=== PATIENT | female | born 1940 | race Caucasian/White ===

== ENCOUNTER 2016-12-18 19:42 | Emergency (ER) | payer MEDICARE ==
[~2016-12-18] VITALS: Ht 162.6 cm; Wt 43.9 kg
[~2016-12-18 19:42] MED LIST: ALPR.25 PO; CLOP75 PO; METO25 PO; SYNT88TA PO; TAB-TAB PO; TRAM50 PO
[2016-12-18 20:13] VITALS: BP 113/68; PULSE 75; RESP 20; TEMP 97.6; O2SAT 95
[2016-12-18] MEDS ORDERED: MORPHINE SULFATE 4 MG/ML INJ IV PUSH ONE (20:45)
[2016-12-18] MEDS ORDERED: LEVO88TA2 PO (20:56)
[2016-12-18] MEDS ORDERED: METO25TA3 PO (20:56)
[2016-12-18] MEDS ORDERED: ALPR.25 PO (20:56)
[2016-12-18] MEDS ORDERED: MULT-135 PO (20:56)
[2016-12-18] MEDS ORDERED: PLAV75TA29 PO (20:56)
[2016-12-18 21:05] LABS: BLOOD, URINE SMALL (NEG); GLUCOSE,URINE NEG (NEG); KETONE, URINE NEG (NEG); NITRITE,URINE NEG (NEG)
[2016-12-18 21:18] LABS: BACTERIA, URINE FEW /hpf; COMMENT (UR) CULTURE INDICATED; CULTURE IF INDICATED CULTURE INDICATED; SQUAMOUS EPITHELIAL CELL URINE 0-5 /hpf (0-5); URINE COLOR YELLOW (YELLW/STRAW)
--- NOTE | 2016-12-18 21:23 | PD ---
HPI Chief Complaint: Fall Time Seen by Provider: 20:26 Travel History International Travel<30 days: No Contact w/Intl Traveler<30days: No Traveled to known affect area: No History of Present Illness HPI Patient is a 76-year-old female who comes in after a fall 3 days ago. She says she tripped over some newspapers by her door and fell against a railing on her left side. She was able to get up and walk afterwards, but says she has had increasing pain to her back and left side since then. She denies hitting her head or any loss of consciousness. She denies any shortness of breath. She complains of left-sided abdominal pain. She denies any nausea or vomiting. PFSH Past Medical History Hx Anticoagulant Therapy: Yes Arthritis: Yes Anxiety: Yes Cancer: No Cardiac Catheterization: Yes (STENTS X 3) Cardiovascular Problems: Yes (CAD,STENTS) High Cholesterol: Yes Chest Pain: Yes COPD: Yes Cerebrovascular Accident: Yes (TIA) Coronary Artery Disease: Yes Diabetes: Yes (Diet-controlled) Patient Takes Glucophage: No Diminished Hearing: No Diverticulitis: Yes Gastrointestinal Disorders: No GERD: Yes Genitourinary: No Hypertension: Yes Kidney Stones: Yes Musculoskeletal: Yes (CHRONIC JOINT DISEASE) Psychiatric: No Respiratory: Yes Immunizations Current: Yes Myocardial Infarction: Yes Thyroid Disease: Yes Tetanus Vaccination: Unknown Influenza Vaccination: No PNEUMOCCOCAL Vaccine (Year): 2009 Menopausal: Yes Past Surgical History Cardiac Surgery: Yes Cholecystectomy: Yes Coronary Stent: Yes Genitourinary Surgery: Yes (BLADDER SURGERY) Pacemaker: No Social History Alcohol Use: No Tobacco Use: Yes (1 PPD) Substance Use: No Allergies-Medications (Allergen,Severity, Reaction): Coded Allergies: Sulfa (Verified Allergy, Severe, FACIAL/MOUTH SWELLING, 07/06/16) Aspirin (Verified Allergy, Unknown, Anaphylaxis, 07/06/16) Reported Meds & Prescriptions Reported Meds & Active Scripts Active Reported Multi Vitamin (Multiple Vitamin) 1 Tab Tab 1 Tab PO DAILY Metoprolol Tartrate 25 Mg Tab 25 Mg PO BID Plavix (Clopidogrel Bisulfate) 75 Mg Tab 75 Mg PO DAILY Levothyroxine (Levothyroxine Sodium) 88 Mcg Tab 88 Mcg PO DAILY Xanax (Alprazolam) 0.25 Mg Tab 0.25 Mg PO EVERY 8 HOURS PRN Review of Systems Except as stated in HPI: all other systems reviewed are Neg General / Constitutional: No: Fever, Chills HENT: No: Headaches, Lightheadedness Respiratory: Positive: Cough, No: Shortness of Breath Gastrointestinal: Positive: Abdominal Pain, No: Nausea, Vomiting Musculoskeletal: Positive: Pain Skin: No Change in Pigmentation Neurologic: No: Dizziness Physical Exam Narrative GENERAL: Awake and alert, in no acute distress. SKIN: Warm and dry. HEAD: Atraumatic. Normocephalic. EYES: Pupils equal and round. No scleral icterus. ENT: Mucous membranes pink and moist. NECK: Trachea midline. No JVD. CARDIOVASCULAR: Regular rate and rhythm. No murmur appreciated. RESPIRATORY: No accessory muscle use. Clear to auscultation. Breath sounds equal bilaterally. GASTROINTESTINAL: Abdomen soft, nondistended. Tender to palpation of left side of the abdomen. No rebound or guarding. MUSCULOSKELETAL: No obvious deformities. No clubbing. No cyanosis. No edema. Tender to palpation of the lumbar spine. Tender to palpation of left lower ribs. NEUROLOGICAL: Awake and alert. No obvious cranial nerve deficits. Motor grossly within normal limits. Normal speech. PSYCHIATRIC: Appropriate mood and affect; insight and judgment normal. Data Data Last Documented VS Vital Signs Date Time Temp Pulse Resp B/P Pulse Ox O2 Delivery O2 Flow Rate FiO2 12/18/16 23:09 81 20 140/82 98 12/18/16 21:38 Room Air 12/18/16 20:13 97.6 Orders Complete Blood Count With Diff (12/18/16 20:37) Basic Metabolic Panel (Bmp) (12/18/16 20:37) Ct Abd/Pel W Iv Contrast(Rout) (12/18/16 ) Ct Lumb Spine W/O Contrast (12/18/16 ) Ribs, Uni (W/Exp Cxr-Min 3vw) (12/18/16 ) Morphine Inj (Morphine Inj) (12/18/16 20:45) Urinalysis - C+S If Indicated (12/18/16 20:48) Urine Culture (12/18/16 20:59) Ceftriaxone Inj (Rocephin Inj) (12/18/16 21:45) Iohexol 350 Inj (Omnipaque 350 Inj) (12/18/16 23:19) Labs Laboratory Tests Test 12/18/16 12/18/16 20:59 21:25 Urine Color YELLOW Urine Turbidity SLIGHT Urine pH 6.0 Urine Specific [place] 1.018 Urine Protein TRACE mg/dL Urine Glucose (UA) NEG mg/dL Urine Ketones NEG mg/dL Urine Occult Blood SMALL Urine Nitrite NEG Urine Bilirubin NEG Urine Leukocyte Esterase MOD Urine RBC 4-9 /hpf Urine WBC 25-49 /hpf Urine Squamous Epithelial 0-5 /hpf Cells Urine Bacteria FEW /hpf Microscopic Urinalysis Comment CULTURE INDICATED White Blood Count 4.6 TH/MM3 Red Blood Count 4.89 MIL/MM3 Hemoglobin 14.9 GM/DL Hematocrit 45.1 % Mean Corpuscular Volume 92.3 FL Mean Corpuscular Hemoglobin 30.5 PG Mean Corpuscular Hemoglobin 33.0 % Concent Red Cell Distribution Width 12.4 % Platelet Count 189 TH/MM3 Mean Platelet Volume 7.9 FL Neutrophils (%) (Auto) 64.1 % Lymphocytes (%) (Auto) 22.2 % Monocytes (%) (Auto) 11.0 % Eosinophils (%) (Auto) 1.2 % Basophils (%) (Auto) 1.5 % Neutrophils # (Auto) 2.9 TH/MM3 Lymphocytes # (Auto) 1.0 TH/MM3 Monocytes # (Auto) 0.5 TH/MM3 Eosinophils # (Auto) 0.1 TH/MM3 Basophils # (Auto) 0.1 TH/MM3 CBC Comment DIFF FINAL Differential Comment Sodium Level 142 MEQ/L Potassium Level 3.5 MEQ/L Chloride Level 105 MEQ/L Carbon Dioxide Level 31.2 MEQ/L Anion Gap 6 MEQ/L Blood Urea Nitrogen 10 MG/DL Creatinine 0.72 MG/DL Estimat Glomerular Filtration 79 ML/MIN Rate Random Glucose 87 MG/DL Calcium Level 8.9 MG/DL [facility] Medical Decision Making Medical Screen Exam Complete: Yes Emergency Medical Condition: Yes Medical Record Reviewed: Yes Differential Diagnosis Rib fracture versus lumbar spine fracture versus intra-abdominal injury Narrative Course Patient is a 76-year-old female comes in with pain to her left side after a fall. Exam shows tenderness to the lumbar spine as well as the left lower ribs. IV established, labs sent. Urine sent for urinalysis is positive for infection. Patient given Rocephin. Given 2 mg of morphine for pain. Rib x-ray shows a fracture of the ninth rib, no pneumothorax or lung issues. CT abdomen and pelvis shows no acute findings. There is a 2.6 cm AAA. Patient informed of this finding. Advised she needs to follow-up with her doctor and have routine follow-up. She understands the importance of this as well as her son. Patient is resting comfortably. We'll be discharged with prescription for pain medicine as well as an incentive spirometer. Given a prescription for Macrobid. Patient advised to return to the ED as needed for any worsening symptoms. Diagnosis Primary Impression: Rib fracture Qualified Code: S22.32XA - Closed fracture of one rib of left side, initial encounter Additional Impression: UTI (urinary tract infection) Qualified Code: N30.00 - Acute cystitis without hematuria Patient Instructions: General Instructions, Rib Fracture (ED), Urinary Tract Infection in Women (ED) Additional Instructions: Take pain medicine as needed. Take all of your antibiotics. Use the incentive spirometer every couple of hours to ensure you are taking deep breaths. Your CT scan showed you have a 2.6cm abdominal aortic aneurysm. You need to follow up with your doctor to have this monitored. Return to the ED as needed for any worsening symptoms. Scripts Nitrofurantoin Monohydrate Macrocrystals (Macrobid)100 Mg Nsl291 Mg PO BID 7 Days Ref 0 Prov:Veena Ratliff MD 12/18/16 Hydrocodone-Acetaminophen (Lortab)5-325 Mg Tab1 Tab PO Q6H PRN (PAIN) #15 TAB Ref 0 Prov:eVena Ratliff MD 12/18/16 Disposition: 01 DISCHARGE HOME Condition: Stable Veena Ratliff MD Dec 18, 2016 21:22
[2016-12-18 21:30] LABS: AUTOMATED NEUTROPHIL # 2.9 TH/MM3 (1.8-7.7); BASOPHIL # 0.1 TH/MM3 (0-0.2); BASOPHIL % 1.5 % (0.0-2.0); EOSINOPHIL # 0.1 TH/MM3 (0-0.4); EOSINOPHIL % 1.2 % (0.0-4.0); HEMATOCRIT 45.1 % (35.0-46.0); HEMO FLAGS DIFF FINAL; LYMPH % 22.2 % (9.0-44.0); MEAN CELL VOLUME 92.3 FL (80.0-100.0); MEAN CORPUSCULAR HEMOGLOBIN 30.5 PG (27.0-34.0); NEUT % 64.1 % (16.0-70.0); PLATELET COUNT 189 TH/MM3 (150-450); RED BLOOD COUNT 4.89 MIL/MM3 (4.00-5.30); RED CELL DISTRIBUTION WIDTH 12.4 % (11.6-17.2); WHITE BLOOD COUNT 4.6 TH/MM3 (4.0-11.0)
--- NOTE | 2016-12-18 21:31 | RADHPO ---
EXAM DATE/TIME: 12/18/2016 20:57 [facility] COMPARISON: No previous studies available for comparison. INDICATIONS : Left side rib pain post fall three days ago. MEDICAL HISTORY : Chronic obstructive pulmonary disease. Myocardial infarction. Hypertension. SURGICAL HISTORY : None. ENCOUNTER: Initial ACUITY: 3 days PAIN SCORE: 6/10 LOCATION: Left ribs. FINDINGS: There is a left ninth rib fracture laterally. No other definite fractures are identified. No pneumoth orax or pleural effusion. A myotendinous disease. Mild hyperinflation. CONCLUSION: 1. Left ninth rib fracture laterally. Jitendra Falcon MD on December 18, 2016 at 21:28 Board Certified Radiologist. This report was verified electronically.
[2016-12-18 21:35] LABS: POTASSIUM 3.5 MEQ/L (3.5-5.1)
[2016-12-18 21:38] LABS: BICARBONATE 31.2 MEQ/L (21.0-32.0)
[2016-12-18 21:45] VITALS: BP 143/71; PULSE 75; RESP 20; O2SAT 98
[2016-12-18] MEDS ORDERED: cefTRIAXone INJ 1,000 MG in SODIUM CHLORIDE 0.9% INJ 100 ML IV ONE (21:45)
[2016-12-18 23:09] VITALS: BP 140/82; PULSE 81; RESP 20; O2SAT 98
[2016-12-18] MEDS ORDERED: IOHEXOL 350 MG/ML 10 ML VIAL (for RAD DIAG) IV ONE (23:19)
--- NOTE | 2016-12-18 23:39 | RADHPO ---
EXAM DATE/TIME: 12/18/2016 22:47 [facility] COMPARISON: CT ABDOMEN & PELVIS W CONTRAST, October 17, 2015, 15:59. INDICATIONS : Mechanical fall two days ago. Left sided abdominal pain. IV CONTRAST: 80 cc Omnipaque 350 (iohexol) IV ORAL CONTRAST: No oral contrast ingested. RADIATION DOSE: 4.71 CTDIvol (mGy) MEDICAL HISTORY : Myocardial infarction. Gastroesophageal reflux disease. Renal calculi. SURGICAL HISTORY : Coronary artery stent. ENCOUNTER: Initial ACUITY: 2 days PAIN SCALE: 7/10 LOCATION: Left Abdomen. TECHNIQUE: Volumetric scanning of the abdomen and pelvis was performed. Using automated exposure control and ad justment of the mA and/or kV according to patient size, radiation dose was kept as low as reasonably achievable to obtain optimal diagnostic quality images. FINDINGS: LOWER LUNGS: Emphysematous changes within the lung bases. No acute infiltrate or effusion. LIVER: There is mild prominence to the intrahepatic biliary tree. This is a long-term stable. No obstructing mass or stone. The common bile duct reaches a maximum diameter of 9 mm. The gallbladder is surgicall y absent. Portal vein is patent. Liver is without mass. SPLEEN: Normal size without lesion. Multiple granulomatous calcifications. PANCREAS: Within normal limits. KIDNEYS: Normal in size and shape. There is no mass, stone or hydronephrosis. Multiple simple cysts are seen involving both kidneys. The largest measures 3.4 cm on the left. ADRENAL GLANDS: Within normal limits. VASCULAR: Diffuse calcified atherosclerotic plaque involving the abdominal aorta and its major branches. Mild f ocal fusiform aneurysmal change of the infrarenal aorta reaching a maximum diameter of 2.6 cm. BOWEL/MESENTERY: Multiple colonic diverticuli. No acute inflammation observed. No dilated loops of bowel. Stomach is u nremarkable. No free air or free fluid. ABDOMINAL WALL: Within normal limits. RETROPERITONEUM: There is no lymphadenopathy. BLADDER: No wall thickening or mass. REPRODUCTIVE: Within normal limits. Prior hysterectomy. Pessary noted. INGUINAL: There is no lymphadenopathy or hernia. MUSCULOSKELETAL: Within normal limits for patient age. CONCLUSION: 1. No acute abnormality. 2. Colonic diverticulosis without acute inflammation. 3. Mild prominence to the intrahepatic biliary system felt to be a capacitance affect from prior chol ecystectomy. It is stable. 4. 2.6 cm AAA Jose Mariscal Jr., MD on December 18, 2016 at 23:32 Board Certified Radiologist. This report was verified electronically.
--- NOTE | 2016-12-18 23:43 | RADHPO ---
EXAM DATE/TIME: 12/18/2016 22:47 [facility] COMPARISON: No previous studies available for comparison. INDICATIONS : Mechanical fall two days ago. Left lower back pain. RADIATION DOSE: ; Reconstructed from previous dataset MEDICAL HISTORY : Myocardial infarction. Renal calculi. Hypertension. SURGICAL HISTORY : Coronary artery stent. ENCOUNTER: Initial ACUITY: 2 days PAIN SCALE: 9/10 LOCATION: Left lower back. TECHNIQUE: Volumetric scanning of the lumbar spine was performed. Multiplanar reconstructions in the sagittal, coronal and oblique axial planes were performed. Using automated exposure control and adjustment of the mA and/or kV according to patient size, radiation dose was kept as low as reasonably achievable t o obtain optimal diagnostic quality images. FINDINGS: VERTEBRAE: Normal vertebral body height. ALIGNMENT: No evidence of subluxation. T12-L1: The thecal sac has a normal diameter. No evidence of disc bulge or protrusion. The neural foramina are patent bilaterally. L1-L2: The thecal sac has a normal diameter. No evidence of disc bulge or protrusion. The neural foramina are patent bilaterally. L2-L3: A mild broad-based disc bulge observed. Central canal remains patent. Neural foramina are patent. L3-L4: A moderate broad-based disc bulge observed. Central canal and lateral recesses are patent. There is n arrowing of the left neural foramen with potential impingement of the left L3 nerve root. Right remai ns patent. Mild ligamentum flavum hypertrophy of the facets. L4-L5: There is vacuum disc phenomena and broad-based disc bulge with narrowing of the central canal and lat eral recesses as well as the neural foramen. Potential impingement of both L4 nerve roots. Facet join ts are unremarkable. L5-S1: The thecal sac has a normal diameter. No evidence of disc bulge or protrusion. The neural foramina are patent bilaterally. Mild bony hypertrophy of the facets. CONCLUSION: 1. No fracture. 2. Multilevel degenerative changes most pronounced at L3-L4 at L4-L5 including central canal stenosis and neural impingement as detailed above. Jose Mariscal Jr., MD on December 18, 2016 at 23:38 Board Certified Radiologist. This report was verified electronically.
[2016-12-18] MEDS ORDERED: HYDR-3533 PO (23:59)
[2016-12-18] MEDS ORDERED: MACR100C2 PO (23:59)
[2016-12-19] MEDS ORDERED: traMADol HCL 50 MG TAB PO ONE
[2016-12-19 00:11] VITALS: BP 168/80
== END 2016-12-19 00:19 | disposition home or self-care (01) ==
LOC: PHED 19:42
DX: S22.32XA Fracture of one rib, left side, initial encounter for closed fracture (principal); N30.00 Acute cystitis without hematuria; B96.89 Other specified bacterial agents as the cause of diseases classified elsewhere; W18.09XA Striking against other object with subsequent fall, initial encounter
CPT/HCPCS: 71101; 72131; 74177; 80048; 81001; 85025; 87086; 94150; 96365; 96375; 99284; J0696; J2270; Q9967

== ENCOUNTER 2017-04-07 21:51 | Emergency (ER) | payer MEDICARE ==
[~2017-04-07] VITALS: Ht 165.1 cm; Wt 45.0 kg
[~2017-04-07 21:51] MED LIST changes: -CLOP75 PO; +HYDR-3533 PO; +LEVO88TA2 PO; +MACR100C2 PO; -METO25 PO; +METO25TA3 PO; +MULT-135 PO; +PLAV75TA29 PO; -SYNT88TA PO; -TAB-TAB PO; -TRAM50 PO
[2017-04-07 21:56] VITALS: BP 117/60; PULSE 80; RESP 16; TEMP 98; O2SAT 95
[2017-04-07 22:04] VITALS: BP 115/61; PULSE 77; RESP 16; TEMP 98; O2SAT 96
[2017-04-07] MEDS ORDERED: SODIUM CHLORID 0.9% 500 ML INJ 500 ML IV ONE (22:15)
[2017-04-07] MEDS ORDERED: SODIUM CHLORIDE 0.9% FLUSH 10 ML FLUSH IVF PRN (22:15)
--- NOTE | 2017-04-07 22:38 | RADRPT ---
EXAM DATE/TIME: 04/07/2017 22:12 [facility] COMPARISON: CHEST SINGLE AP, November 06, 2015, 15:25. INDICATIONS : Chest pain MEDICAL HISTORY : Chronic obstructive pulmonary disease. Myocardial infarction. Hypertension SURGICAL HISTORY : None. ENCOUNTER: Initial ACUITY: 1 day PAIN SCORE: Non-responsive. LOCATION: Bilateral chest FINDINGS: The lungs are clear without infiltrate, nodule, or mass. There is no appreciable pleural effusion fo r technique. Heart and mediastinum are unremarkable. There are degenerative changes within the thora cic spine and the bony structures appear slightly osteopenic. There are atherosclerotic calcification s of the aorta due to chronic atherosclerotic disease. CONCLUSION: No acute cardiopulmonary disease. Mary Major MD on April 07, 2017 at 22:36 Board Certified Radiologist. This report was verified electronically.
[2017-04-07 22:45] LABS: BASOPHIL % 0.7 % (0.0-2.0); EOSINOPHIL % 0.3 % (0.0-4.0); HEMATOCRIT 39.7 % (35.0-46.0); HEMO FLAGS DIFF FINAL; LYMPH % 20.2 % (9.0-44.0); LYMPHOCYTE # 1.1 TH/MM3 (1.0-4.8); MEAN CELL VOLUME 92.5 FL (80.0-100.0); MEAN CORPUSCULAR HEMOGLOBIN 30.6 PG (27.0-34.0); MEAN CORPUSCULAR HGB CONC 33.1 % (32.0-36.0); MONO % 8.3 % (0.0-8.0); NEUT % 70.5 % (16.0-70.0); PLATELET COUNT 214 TH/MM3 (150-450); RED BLOOD COUNT 4.29 MIL/MM3 (4.00-5.30); RED CELL DISTRIBUTION WIDTH 14.4 % (11.6-17.2); WHITE BLOOD COUNT 5.7 TH/MM3 (4.0-11.0)
--- NOTE | 2017-04-07 22:58 | PD ---
HPI Chief Complaint: Cardiac Complaint Time Seen by Provider: 21:59 Travel History International Travel<30 days: No Contact w/Intl Traveler<30days: No Traveled to known affect area: No History of Present Illness HPI This 76 year-old woman presents emergency department via EMS complaining of pain in her back and nausea and weakness. She states that she hasn't been feeling well for the past couple days. She's had UTI symptoms for the past month. She did anabiotic visits never really went away. Stable walking to the convenience store this evening she got increased weakness and aching in the right side of her back. EMS described that she looked pale, and unwell and he first arrived. She feels better now. No nausea vomiting. No fevers or chills. She has no history of cardiac disease that she states, records show that she has a history of CAD with stents in the past. She has reported history of direct for diabetes. She is extensive tobacco use history. History Past Medical History Narrative Medical CAD Tobacco use Diabetes CVA PNEUMOCCOCAL Vaccine (Year): 2009 Menopausal: Yes Social History Alcohol Use: No Tobacco Use: Yes (2 PPD) Allergies-Medications (Allergen,Severity, Reaction): Coded Allergies: Sulfa (Verified Allergy, Severe, FACIAL/MOUTH SWELLING, 04/07/17) Aspirin (Verified Allergy, Unknown, Anaphylaxis, 04/07/17) Reported Meds & Prescriptions Reported Meds & Active Scripts Active Lortab (Hydrocodone-Acetaminophen) 5-325 Mg Tab 1 Tab PO Q6H PRN Reported Metoprolol Tartrate 25 Mg Tab 25 Mg PO BID Plavix (Clopidogrel Bisulfate) 75 Mg Tab 75 Mg PO DAILY Levothyroxine (Levothyroxine Sodium) 88 Mcg Tab 88 Mcg PO DAILY Xanax (Alprazolam) 0.25 Mg Tab 0.25 Mg PO EVERY 8 HOURS PRN Review of Systems Except as stated in HPI: all other systems reviewed are Neg Physical Exam Narrative GENERAL: Well-appearing 76 year-old woman, no acute distress. SKIN: Focused skin assessment warm/dry. HEAD: Atraumatic. Normocephalic. CARDIOVASCULAR: Regular rate and rhythm. No murmur appreciated. RESPIRATORY: No accessory muscle use. Clear to auscultation. Breath sounds equal bilaterally. GASTROINTESTINAL: Abdomen soft, non-tender, nondistended. Hepatic and splenic margins not palpable. MUSCULOSKELETAL: No obvious deformities. No edema. NEUROLOGICAL: Awake and alert. No obvious cranial nerve deficits. Motor grossly within normal limits. Normal speech. Data Data Last Documented VS Vital Signs Date Time Temp Pulse Resp B/P Pulse Ox O2 Delivery O2 Flow Rate FiO2 04/07/17 22:04 98.0 77 16 115/61 96 Room Air Orders Electrocardiogram (04/07/17 22:03) Complete Blood Count With Diff (04/07/17 22:03) Comprehensive Metabolic Panel (04/07/17 22:03) Magnesium (Mg) (04/07/17 22:03) Prothrombin Time / Inr (Pt) (04/07/17 22:03) Act Partial Throm Time (Ptt) (04/07/17 22:03) Troponin I (04/07/17 22:) Lipase (04/07/17 22:03) Chest, Single Ap (04/07/17 22:03) Ecg Monitoring (04/07/17 22:03) Bilateral Bp Monitoring (04/07/17 22:03) Iv Access Insert/Monitor (04/07/17 22:03) Oximetry (04/07/17 22:03) Oxygen Administration (04/07/17 22:03) Sodium Chloride 0.9% Flush (Ns Flush) (04/07/17 22:15) Sodium Chlorid 0.9% 500 Ml Inj (Ns 500 M (04/07/17 22:15) Urinalysis - C+S If Indicated (04/07/17 22:03) Urine Culture (04/07/17 23:32) Labs Laboratory Tests Test 04/07/17 04/07/17 22:10 23:32 White Blood Count 5.7 TH/MM3 Red Blood Count 4.29 MIL/MM3 Hemoglobin 13.1 GM/DL Hematocrit 39.7 % Mean Corpuscular Volume 92.5 FL Mean Corpuscular Hemoglobin 30.6 PG Mean Corpuscular Hemoglobin 33.1 % Concent Red Cell Distribution Width 14.4 % Platelet Count 214 TH/MM3 Mean Platelet Volume 8.4 FL Neutrophils (%) (Auto) 70.5 % Lymphocytes (%) (Auto) 20.2 % Monocytes (%) (Auto) 8.3 % Eosinophils (%) (Auto) 0.3 % Basophils (%) (Auto) 0.7 % Neutrophils # (Auto) 4.0 TH/MM3 Lymphocytes # (Auto) 1.1 TH/MM3 Monocytes # (Auto) 0.5 TH/MM3 Eosinophils # (Auto) 0.0 TH/MM3 Basophils # (Auto) 0.0 TH/MM3 CBC Comment DIFF FINAL Differential Comment Prothrombin Time 12.4 SEC Prothromb Time International 1.1 RATIO Ratio Activated Partial 23.4 SEC Thromboplast Time Sodium Level 143 MEQ/L Potassium Level 3.8 MEQ/L Chloride Level 109 MEQ/L Carbon Dioxide Level 26.3 MEQ/L Anion Gap 8 MEQ/L Blood Urea Nitrogen 19 MG/DL Creatinine 0.95 MG/DL Estimat Glomerular Filtration 57 ML/MIN Rate Random Glucose 149 MG/DL Calcium Level 8.1 MG/DL Magnesium Level 2.0 MG/DL Total Bilirubin 0.4 MG/DL Aspartate Amino Transf 24 U/L (AST/SGOT) Alanine Aminotransferase 20 U/L (ALT/SGPT) Alkaline Phosphatase 46 U/L Troponin I LESS THAN 0.02 NG/ML Total Protein 6.3 GM/DL Albumin 3.0 GM/DL Lipase 67 U/L Urine Color YELLOW Urine Turbidity HAZY Urine pH 5.5 Urine Specific [place] 1.029 Urine Protein 30 mg/dL Urine Glucose (UA) NEG mg/dL Urine Ketones NEG mg/dL Urine Occult Blood SMALL Urine Nitrite NEG Urine Bilirubin NEG Urine Urobilinogen 2.0 MG/DL Urine Leukocyte Esterase LARGE Urine RBC 23 /hpf Urine WBC /hpf Urine Squamous Epithelial 1 /hpf Cells Urine Calcium Oxalate Crystals OCC /hpf Urine Bacteria RARE /hpf Urine Hyaline Casts 13 /lpf Urine Mucus FEW /lpf Microscopic Urinalysis Comment CULTURE INDICATED MDM Medical Decision Making Medical Screen Exam Complete: Yes Emergency Medical Condition: Yes Interpretation(s) My review of EKG: Normal sinus rhythm at a rate of 81, left bundle branch block , no definite evidence of acute ischemia. LABS: CBC is unremarkable. CMP is unremarkable. Troponin is negative. Proteins low. Lipase is normal UA with innumerable white blood cells. Differential Diagnosis Pyelonephritis, UTI, ACS, infection, other Narrative Course Medical decision making Is a 76 year-old woman with back pain in lightheadedness and weakness. She was called as a cardiac work as her EKG shows left bundle-branch block. EKG does not look significantly different previous. She may have pyelonephritis. She had UTI symptoms for a while and is having some back pain. We'll check labs chest x-ray EKG. He has no chest pain, no trouble breathing, no other cardiac symptoms. Diagnosis Primary Impression: Pyelonephritis Additional Instructions: Take antibiotics as prescribed. Follow-up with her primary doctor in 1-2 days. Return to the emergency department for any new or worsening symptoms. Med/Other Pt SpecificInfo: Prescription(s) given, No Change to Meds Scripts Cephalexin (Keflex)500 Mg Qfl369 Mg PO Q8H #30 CAP Ref 0 Prov:Derek Gibson MD 04/08/17 Disposition: 01 DISCHARGE HOME Condition: Stable Derek Gibson MD Apr 07, 2017 22:58
[2017-04-07 22:59] LABS: ALT (GPT) 20 U/L (10-53); ANION GAP 8 MEQ/L (5-15); AST (GOT) 24 U/L (15-37); BICARBONATE 26.3 MEQ/L (21.0-32.0); BLOOD UREA NITROGEN 19 MG/DL (7-18); CHLORIDE 109 MEQ/L (98-107); GLOMERULAR FILTRATION RATE 57 ML/MIN (>89); POTASSIUM 3.8 MEQ/L (3.5-5.1); SODIUM (NA) 143 MEQ/L (136-145)
[2017-04-07 23:03] LABS: ALKALINE PHOSPHATASE 46 U/L (45-117); TOTAL BILIRUBIN ADULT 0.4 MG/DL (0.2-1.0)
[2017-04-07 23:07] LABS: APTT (PATIENT) 23.4 SEC (24.3-30.1); INTERNATIONAL NORMALIZED RATIO 1.1 RATIO; PROTHROMBIN TIME - PATIENT 12.4 SEC (9.8-11.6)
[2017-04-07 23:50] VITALS: BP 120/66; PULSE 80; RESP 14; O2SAT 99
[2017-04-07 23:55] LABS: BACTERIA, URINE RARE /hpf; BLOOD, URINE SMALL (NEG); CALCIUM OXALATE CRYSTALS,URINE OCC /hpf; COMMENT (UR) CULTURE INDICATED; CULTURE IF INDICATED CULTURE INDICATED; GLUCOSE,URINE NEG (NEG); HYALINE CAST, URINE 13 /lpf (RARE); KETONE, URINE NEG (NEG); MUCUS URINE FEW /lpf (OCC); NITRITE,URINE NEG (NEG); PH, URINE 5.5 (5.0-8.5); SQUAMOUS EPITHELIAL CELL URINE 1 /hpf (0-5); URINE COLOR YELLOW (YELLW/STRAW)
[2017-04-08] MEDS ORDERED: cefTRIAXone INJ 1,000 MG in SODIUM CHLORIDE 0.9% INJ 100 ML IV ONE (00:15)
[2017-04-08] MEDS ORDERED: CEPH-460 PO (00:23)
[2017-04-08 00:59] VITALS: BP 118/64; PULSE 78; RESP 14; O2SAT 98
[2017-04-08 01:54] VITALS: BP 120/66; PULSE 74; RESP 14; O2SAT 98
--- NOTE | 2017-04-09 10:58 | EKG ---
Date Performed: 04/07/2017 Time Performed: 21:54:22 PTAGE: 76 years EKG: Sinus rhythm MARKED LEFT AXIS DEVIATION LEFT BUNDLE BRANCH BLOCK ABNORMAL ECG PREVIOUS TRACING : 07/06/2016 19.30 DOCTOR: Derek Servin Interpretating Date/Time 04/09/2017 10:54:28
== END 2017-04-08 02:46 | disposition home or self-care (01) ==
LOC: NEPE 21:51
DX: N12 Tubulo-interstitial nephritis, not specified as acute or chronic (principal); R42 Dizziness and giddiness; R53.1 Weakness; I44.7 Left bundle-branch block, unspecified; I25.10 Atherosclerotic heart disease of native coronary artery without angina pectoris; R94.31 Abnormal electrocardiogram [ECG] [EKG]; E11.9 Type 2 diabetes mellitus without complications; J44.9 Chronic obstructive pulmonary disease, unspecified; I10 Essential (primary) hypertension
CPT/HCPCS: 71010; 80053; 81001; 83690; 83735; 84484; 85025; 85610; 85730; 87077; 87086; 87186; 93005; 96374; 99285; J0696; J7040

== ENCOUNTER 2017-07-13 12:09 | Emergency (ER) | payer MEDICARE ==
[~2017-07-13 12:09] MED LIST changes: +CEPH-460 PO; -MACR100C2 PO; -MULT-135 PO
[2017-07-13 12:33] VITALS: BP 135/55; PULSE 80; RESP 18; TEMP 98.7; O2SAT 99
--- NOTE | 2017-07-13 12:34 | PD ---
HPI Chief Complaint: Respiratory Symptoms Time Seen by Provider: 12:23 Travel History International Travel<30 days: No Contact w/Intl Traveler<30days: No History of Present Illness HPI This is a 76-year-old female who presents to the emergency department with shortness of breath that she says this been going on for 2 years but was worse today. Her symptoms are constant, moderate severity, worse when she exerts herself. She denies any associated chest pain. She denies any fevers or chills. She has had a productive cough with yellow sputum. She says this morning she called her doctor and her doctor told her to come to the emergency department. PFSH Past Medical History Hx Anticoagulant Therapy: Yes Arthritis: Yes Anxiety: Yes Cancer: No Cardiac Catheterization: Yes (STENTS X 3) Cardiovascular Problems: Yes (CAD,STENTS) High Cholesterol: Yes Chest Pain: Yes COPD: Yes Cerebrovascular Accident: Yes Coronary Artery Disease: Yes Diabetes: Yes (Diet-controlled) Diminished Hearing: No Diverticulitis: Yes Gastrointestinal Disorders: No GERD: Yes Genitourinary: No Hypertension: Yes Kidney Stones: Yes Musculoskeletal: Yes (CHRONIC JOINT DISEASE) Psychiatric: No Respiratory: Yes Immunizations Current: Yes Myocardial Infarction: Yes Thyroid Disease: Yes PNEUMOCCOCAL Vaccine (Year): 2009 Menopausal: Yes Past Surgical History Cardiac Surgery: Yes Cholecystectomy: Yes Coronary Stent: Yes Genitourinary Surgery: Yes (BLADDER SURGERY) Pacemaker: No Social History Alcohol Use: No Tobacco Use: Yes (2 PPD) Substance Use: No Allergies-Medications (Allergen,Severity, Reaction): Coded Allergies: Sulfa (Sulfonamide Antibiotics) (Unverified Allergy, Severe, FACIAL/MOUTH SWELLING, 05/10/17) aspirin (Unverified Allergy, Unknown, Anaphylaxis, 05/10/17) Reported Meds & Prescriptions Reported Meds & Active Scripts Active Reported Metoprolol Tartrate 25 Mg Tab 25 Mg PO BID Plavix (Clopidogrel Bisulfate) 75 Mg Tab 75 Mg PO DAILY Levothyroxine (Levothyroxine Sodium) 88 Mcg Tab 88 Mcg PO DAILY Review of Systems Except as stated in HPI: all other systems reviewed are Neg Physical Exam Narrative GENERAL: Frail elderly female in no acute distress. SKIN: Focused skin assessment warm and dry. HEAD: Atraumatic. Normocephalic. EYES: Pupils equal and round. No injection or drainage. ENT: Moist mucous membranes NECK: Trachea midline. CARDIOVASCULAR: Regular rate and rhythm. No murmur appreciated. Trace edema in the bilateral lower extremities. RESPIRATORY: Clear to auscultation. Breath sounds equal bilaterally. GASTROINTESTINAL: Abdomen soft, non-tender, nondistended. MUSCULOSKELETAL: No obvious deformities. NEUROLOGICAL: Awake and alert. No obvious cranial nerve deficits. Moving all extremities. PSYCHIATRIC: Appropriate mood and affect; insight and judgment normal. Data Data Last Documented VS Vital Signs Date Time Temp Pulse Resp B/P (MAP) Pulse Ox O2 Delivery O2 Flow Rate FiO2 07/13/17 13:07 74 18 135/61 (85) 99 Room Air 07/13/17 12:33 98.7 Orders Orders Complete Blood Count With Diff (07/13/17 12:31) Comprehensive Metabolic Panel (07/13/17 12:31) B-Type Natriuretic Peptide (07/13/17 12:31) D-Dimer (07/13/17 12:31) Troponin I (07/13/17 12:31) Iv Access Insert/Monitor (07/13/17 12:31) Electrocardiogram (07/13/17 12:31) Ecg Monitoring (07/13/17 12:31) Oximetry (07/13/17 12:31) Oxygen Administration (07/13/17 12:31) Chest, Single Ap (07/13/17 12:31) Sodium Chloride 0.9% Flush (Ns Flush) (07/13/17 12:45) Labs Laboratory Tests Test 07/13/17 12:50 White Blood Count 5.9 TH/MM3 Red Blood Count 4.31 MIL/MM3 Hemoglobin 13.1 GM/DL Hematocrit 39.7 % Mean Corpuscular Volume 92.1 FL Mean Corpuscular Hemoglobin 30.4 PG Mean Corpuscular Hemoglobin Concent 33.0 % Red Cell Distribution Width 14.4 % Platelet Count 246 TH/MM3 Mean Platelet Volume 7.5 FL Neutrophils (%) (Auto) 68.6 % Lymphocytes (%) (Auto) 17.8 % Monocytes (%) (Auto) 8.6 % Eosinophils (%) (Auto) 0.9 % Basophils (%) (Auto) 4.1 % Neutrophils # (Auto) 4.0 TH/MM3 Lymphocytes # (Auto) 1.1 TH/MM3 Monocytes # (Auto) 0.5 TH/MM3 Eosinophils # (Auto) 0.1 TH/MM3 Basophils # (Auto) 0.2 TH/MM3 CBC Comment DIFF FINAL Differential Comment D-Dimer Quantitative (PE/DVT) 0.31 MG/L FEU Blood Urea Nitrogen 17 MG/DL Creatinine 0.65 MG/DL Random Glucose 81 MG/DL Total Protein 6.5 GM/DL Albumin 3.1 GM/DL Calcium Level 8.4 MG/DL Alkaline Phosphatase 63 U/L Aspartate Amino Transf (AST/SGOT) 23 U/L Alanine Aminotransferase (ALT/SGPT) 22 U/L Total Bilirubin 0.2 MG/DL Sodium Level 140 MEQ/L Potassium Level 3.6 MEQ/L Chloride Level 105 MEQ/L Carbon Dioxide Level 31.5 MEQ/L Anion Gap 4 MEQ/L Estimat Glomerular Filtration Rate 89 ML/MIN Troponin I LESS THAN 0.02 NG/ML B-Type Natriuretic Peptide 70 PG/ML MDM Medical Decision Making Medical Screen Exam Complete: Yes Emergency Medical Condition: Yes Interpretation(s) Afebrile, no tachycardia, normotensive EKG: Normal sinus rhythm, Q waves in the anterior leads, no ST changes No leukocytosis Electrolytes are reassuring Troponin is normal BNP is normal D-dimer is 0.31 Last 24 hours Impressions Chest X-Ray 07/13/17 1231 Signed Impressions: Service Date/Time: Thursday, July 13, 2017 12:52 - CONCLUSION: Stable chest x-ray. No acute finding is identified. Anthony Palmer MD Differential Diagnosis Congestive heart earlier, COPD exacerbation, pneumonia, myocardial infarction, pulmonary embolism Narrative Course This is a 76-year-old female who presents to the emergency department with shortness of breath. She is not a great historian but it sounds like this is been going on intermittently for 2 years. The only reason she came in today is because she was told to do so by her doctor's office via phone call. She is very well-appearing and has normal vital signs. Labs are all reassuring. I don 't think she requires any additional diagnostics and I think she is safe to follow-up with her outpatient primary care physician. Diagnosis Primary Impression: Shortness of breath Patient Instructions: General Instructions Additional Instructions: If you develop severe chest pain, shortness of breath, sweating, lightheadedness , dizziness or difficulty breathing return to the emergency department immediately. Followup with your primary care physician in 2-3 days if your symptoms are not resolved. Med/Other Pt SpecificInfo: No Change to Meds Disposition: 01 DISCHARGE HOME Condition: Stable Janna Gomez MD Jul 13, 2017 12:33
[2017-07-13] MEDS ORDERED: SODIUM CHLORIDE 0.9% FLUSH 10 ML FLUSH IVF PRN (12:45)
[2017-07-13 13:02] LABS: BASOPHIL # 0.2 TH/MM3 (0-0.2); BASOPHIL % 4.1 % (0.0-2.0); EOSINOPHIL # 0.1 TH/MM3 (0-0.4); EOSINOPHIL % 0.9 % (0.0-4.0); HEMATOCRIT 39.7 % (35.0-46.0); HEMO FLAGS DIFF FINAL; LYMPH % 17.8 % (9.0-44.0); LYMPHOCYTE # 1.1 TH/MM3 (1.0-4.8); MEAN CELL VOLUME 92.1 FL (80.0-100.0); MEAN CORPUSCULAR HEMOGLOBIN 30.4 PG (27.0-34.0); MONO % 8.6 % (0.0-8.0); NEUT % 68.6 % (16.0-70.0); PLATELET COUNT 246 TH/MM3 (150-450); RED BLOOD COUNT 4.31 MIL/MM3 (4.00-5.30); RED CELL DISTRIBUTION WIDTH 14.4 % (11.6-17.2); WHITE BLOOD COUNT 5.9 TH/MM3 (4.0-11.0)
[2017-07-13 13:07] VITALS: BP 135/61; PULSE 74; RESP 18; O2SAT 99
[2017-07-13 13:10] LABS: CHLORIDE 105 MEQ/L (98-107); POTASSIUM 3.6 MEQ/L (3.5-5.1); SODIUM (NA) 140 MEQ/L (136-145)
[2017-07-13 13:14] LABS: ANION GAP 4 MEQ/L (5-15); BICARBONATE 31.5 MEQ/L (21.0-32.0); BLOOD UREA NITROGEN 17 MG/DL (7-18)
[2017-07-13 13:17] LABS: ALT (GPT) 22 U/L (10-53); AST (GOT) 23 U/L (15-37); GLOMERULAR FILTRATION RATE 89 ML/MIN (>89)
[2017-07-13 13:18] LABS: TOTAL BILIRUBIN ADULT 0.2 MG/DL (0.2-1.0)
[2017-07-13 13:20] LABS: ALKALINE PHOSPHATASE 63 U/L (45-117)
--- NOTE | 2017-07-13 13:37 | EKG ---
Date Performed: 07/13/2017 Time Performed: 12:56:52 PTAGE: 76 years EKG: Sinus rhythm MARKED LEFT AXIS DEVIATION ANTEROSEPTAL MYOCARDIAL INFARCTION ABNORMAL ECG PREVIOUS TRACING : 04/07/2017 21.54 DOCTOR: Derek Servin Interpretating Date/Time 07/13/2017 13:37:11
--- NOTE | 2017-07-13 14:05 | RADRPT ---
EXAM DATE/TIME: 07/13/2017 12:52 [facility] COMPARISON: CHEST SINGLE AP, April 07, 2017, 22:12. INDICATIONS : Short of breath MEDICAL HISTORY : Myocardial infarction. Gastroesophageal reflux disease. Renal calculi. SURGICAL HISTORY : Myocardial infarction. Gastroesophageal reflux disease. Renal calculi. ENCOUNTER: Initial ACUITY: 1 day PAIN SCORE: 0/10 LOCATION: Bilateral chest FINDINGS: Portable AP view of the chest demonstrates a normal-sized cardiac silhouette with calcification of ao rta. Lungs remain hyperinflated with interstitial prominence bilaterally. No effusion, consolidation, or pneumothorax is identified. Bones and soft tissues demonstrate no acute finding. CONCLUSION: Stable chest x-ray. No acute finding is identified. Anthony Palmer MD on July 13, 2017 at 13:12 Board Certified Radiologist. This report was verified electronically.
== END 2017-07-13 15:44 | disposition home or self-care (01) ==
LOC: PHED 12:09
DX: R06.02 Shortness of breath (principal); F17.200 Nicotine dependence, unspecified, uncomplicated
CPT/HCPCS: 71010; 80053; 83880; 84484; 85025; 85379; 93005; 99285

== ENCOUNTER 2017-08-21 22:23 | Emergency (ER) | payer MEDICARE ==
[~2017-08-21] VITALS: Ht 160 cm; Wt 54.0 kg
[~2017-08-21 22:23] MED LIST changes: -ALPR.25 PO; -CEPH-460 PO; -HYDR-3533 PO
[2017-08-21 22:33] VITALS: BP 147/67; PULSE 71; RESP 18; TEMP 98.1
[2017-08-21] MEDS ORDERED: traMADol HCL 50 MG TAB PO ONE (22:45)
[2017-08-21] MEDS ORDERED: DIPHTH/TETANUS/ACEL PERTUSSIS (BOOSTER) 0.5 ML VIAL/PFS IM ONE (23:00)
[2017-08-21] MEDS ORDERED: HYDR1SOL6 PO (23:17)
--- NOTE | 2017-08-21 23:25 | RADRPT ---
EXAM DATE/TIME: 08/21/2017 22:52 [facility] COMPARISON: CT BRAIN W/O CONTRAST, October 12, 2015, 11:24. INDICATIONS : Trauma. Fall. RADIATION DOSE: 49.46 CTDIvol (mGy) MEDICAL HISTORY : Diabetes mellitus type 2. Chronic obstructive pulmonary disease. Cerebrovascular disease.Cardiovascul ar disease. SURGICAL HISTORY : None. ENCOUNTER: Initial ACUITY: 1 day PAIN SCALE: 8/10 LOCATION: Bilateral occipital TECHNIQUE: Multiple contiguous axial images were obtained of the head. Using automated exposure control and adj ustment of the mA and/or kV according to patient size, radiation dose was kept as low as reasonably a chievable to obtain optimal diagnostic quality images. DICOM format image data is available electro nically for review and comparison. FINDINGS: CEREBRUM: The ventricles and cortical sulci are widened. No evidence of midline shift, mass lesion, hemorrhage or acute infarction. No extra-axial fluid collections are seen. POSTERIOR FOSSA: The cerebellum and brainstem are intact. The 4th ventricle is midline. The cerebellopontine angle i s unremarkable. EXTRACRANIAL: The visualized portion of the orbits is intact. There is a focal are of soft tissue swelling in the p osterior left medial parietal scalp region. There is a small area of focal mucosal disease the left m axillary sinus. SKULL: The calvaria is intact. No evidence of skull fracture. CONCLUSION: 1. No acute intracranial abnormality seen. 2. Posterior inferior medial left parietal scalp injury. 3. Age-related atrophy. 4. Mild left maxillary sinus disease. Anthony Faith MD on August 21, 2017 at 23:21 Board Certified Radiologist. This report was verified electronically.
--- NOTE | 2017-08-21 23:37 | RADRPT ---
EXAM DATE/TIME: 08/21/2017 22:52 [facility] COMPARISON: CT CERVICAL SPINE W/O CONTRAST, March 01, 2015, 18:19. INDICATIONS : Trauma. Fall. RADIATION DOSE: 24.06 CTDIvol (mGy) MEDICAL HISTORY : Diabetes mellitus type 2. Cerebrovascular disease. Chronic obstructive pulmonary disease.Cardiovascu lar disease. SURGICAL HISTORY : None. ENCOUNTER: Initial ACUITY: 1 day PAIN SCALE: 8/10 LOCATION: Bilateral neck TECHNIQUE: Volumetric scanning of the cervical spine was performed. Multiplanar reconstructions in the sagittal, coronal and oblique axial planes were performed. Using automated exposure control and adjustment o f the mA and/or kV according to patient size, radiation dose was kept as low as reasonably achievable to obtain optimal diagnostic quality images. DICOM format image data is available electronically f or review and comparison. FINDINGS: VERTEBRAE: Normal vertebral body height. ALIGNMENT: No evidence of subluxation. C2-C3: The bony spinal canal is normal in size. No evidence of disc bulge or herniation. The neural forami na are bilaterally patent. There is facet hypertrophy being worse on the left. C3-C4: The bony spinal canal is normal in size. No evidence of disc bulge or herniation. The neural forami na are bilaterally patent. There is facet hypertrophy being worse on the right. C4-C5: The bony spinal canal is normal in size. No evidence of disc bulge or herniation. The neural forami na are bilaterally patent. There is bilateral facet hypertrophy. C5-C6: The disc demonstrates decreased height. There is mild bulging being worse on the right. There is oste ophytic ridging seen at the disc margin. There is uncovertebral hypertrophy. The neural foramina are narrowed bilaterally. C6-C7: The disc demonstrates decreased height. There is mild diffuse bulge. There is uncovertebral hypertrop hy being worse on the left. There is some narrowing of the left neural foramina. The right neural for clinton is patent. C7-T1: The bony spinal canal is normal in size. No evidence of disc bulge or herniation. The neural forami na are bilaterally patent. Anterior marginal osteophytes are seen. CONCLUSION: No acute bony abnormalities seen. There is degenerative change. Anthony Faith MD on August 21, 2017 at 23:24 Board Certified Radiologist. This report was verified electronically.
--- NOTE | 2017-08-21 23:43 | PD ---
HPI Chief Complaint: Head Injury Time Seen by Provider: 22:28 Travel History International Travel<30 days: No Contact w/Intl Traveler<30days: No Traveled to known affect area: No History of Present Illness HPI patient is a 76-year-old female presents emergency Department with her son for evaluation of fall. According to son was dark out in the backyard and the patient misjudged a step and fell backwards impacting the back of her head. Symptoms started just prior to arrival she endorses a headache. She does take some Plavix. She also had some bleeding from a abrasion in the occipital aspect of her scalp. No loss consciousness chest pain or shortness of breath no extremity pain. Symptoms are moderate, context is fall, associated signs symptoms as above, quality is dull. PFSH Past Medical History Hx Anticoagulant Therapy: Yes (PLAVIX) Arthritis: Yes Anxiety: Yes Cancer: No Cardiac Catheterization: Yes (STENTS X 3) Cardiovascular Problems: Yes (CAD,STENTS) High Cholesterol: Yes Chest Pain: Yes COPD: Yes Cerebrovascular Accident: Yes Coronary Artery Disease: Yes Diabetes: Yes (Diet-controlled) Patient Takes Glucophage: No Diminished Hearing: No Diverticulitis: Yes Gastrointestinal Disorders: No GERD: Yes Genitourinary: No Hypertension: Yes Kidney Stones: Yes Musculoskeletal: Yes (CHRONIC JOINT DISEASE) Psychiatric: No Respiratory: Yes Immunizations Current: Yes Myocardial Infarction: Yes Thyroid Disease: Yes PNEUMOCCOCAL Vaccine (Year): 2009 ?: Not Menopausal: Yes Past Surgical History Cardiac Surgery: Yes Cholecystectomy: Yes Coronary Stent: Yes Genitourinary Surgery: Yes (BLADDER SURGERY) Pacemaker: No Social History Alcohol Use: No Tobacco Use: Yes (2 PPD) Substance Use: No Allergies-Medications (Allergen,Severity, Reaction): Coded Allergies: Sulfa (Sulfonamide Antibiotics) (Verified Allergy, Severe, FACIAL/MOUTH SWELLING, 08/21/17) aspirin (Verified Allergy, Unknown, Anaphylaxis, 08/21/17) Reported Meds & Prescriptions Reported Meds & Active Scripts Active Reported Hydrocodon-Acetamin 7.5-325/15 (Hydrocodone/Acetaminophen) 7.5 Mg-325 Mg/15 Ml ( 15 Ml) Solution 7.5 Mg PO Q6HR NEB Metoprolol Tartrate 25 Mg Tab 25 Mg PO BID Plavix (Clopidogrel Bisulfate) 75 Mg Tab 75 Mg PO DAILY Levothyroxine (Levothyroxine Sodium) 88 Mcg Tab 88 Mcg PO DAILY Review of Systems Except as stated in HPI: all other systems reviewed are Neg Physical Exam Narrative GENERAL: Well-developed well-nourished no obvious distress. SKIN: Focused skin assessment warm/dry. HEAD: There is an abrasion and hematoma over the occiput, there is a pinpoint break in the skin not amenable to closure. No oro signs no raccoons eyes.. Normocephalic. EYES: Pupils equal and round. No scleral icterus. No injection or drainage. ENT: No nasal bleeding or discharge. Mucous membranes pink and moist. NECK: Trachea midline. No JVD. CARDIOVASCULAR: Regular rate and rhythm. No murmur appreciated. RESPIRATORY: No accessory muscle use. Clear to auscultation. Breath sounds equal bilaterally. GASTROINTESTINAL: Abdomen soft, non-tender, nondistended. Hepatic and splenic margins not palpable. MUSCULOSKELETAL: No obvious deformities. No clubbing. No cyanosis. No edema. NEUROLOGICAL: Awake and alert. Cranial nerves II through XII are grossly intact nonfocal, 5 out of 5 strength in all 4 extremities. No slurred speech. Patient repeatedly asked for pain medicine when asked if she has memory problems she states "you haven't given me any pain medicine yet". Given my interactions with her I suspect a very early mild dementia. She is alert and awake and oriented 4. PSYCHIATRIC: Appropriate mood and affect; insight and judgment normal. Data Data Last Documented VS Vital Signs Date Time Temp Pulse Resp B/P (MAP) Pulse Ox O2 Delivery O2 Flow Rate FiO2 08/21/17 23:46 60 18 161/67 (98) 96 08/21/17 22:41 Room Air 08/21/17 22:[address] Brain W/O Iv Contrast(Rout) (08/21/17 ) Ct Cerv Spine W/O Contrast (08/21/17 ) Tramadol (Ultram) (08/21/17 22:45) [id number] (Booster) Inj (Boostrix (08/21/17 23:00) Ed Discharge Order (08/21/17 23:43) Oxycodone-Acetamin 5-325 Mg (Percocet (08/22/17 00:00) Oxycodone-Acetamin 5-325 Mg (Percocet (08/22/17 00:00) MDM Medical Decision Making Medical Screen Exam Complete: Yes Emergency Medical Condition: Yes Differential Diagnosis Fall, dementia, head injury, abrasion, tetanus status. Narrative Course patient roomed emerged permit, tetanus updated, CT head and C-spine are negative. The wound was cleaned and pressure dressing was applied in the emergency department bleeding well controlled no wound appropriate for 1 closure this time. She was given Ultram for her headache. I do not appreciate a thunderclap presentation I do not see any indication for lumbar puncture is posttraumatic patient. Discussed with her son need follow-up with a primary care physician for testing for dementia. He would like to take her home currently. They requested pain medicine to go home with and I stated that Tylenol ibuprofen should be used any pain that persists should prompt return to the ER for another evaluation. However she is stable for discharge at this time. Diagnosis Primary Impression: Head injury Qualified Codes: S09.90XA - Unspecified injury of head, initial encounter Disposition: 01 DISCHARGE HOME Condition: Stable Andrew Huff MD Aug 21, 2017 23:43
[2017-08-21 23:46] VITALS: BP 161/67; RESP 18
[2017-08-22] MEDS ORDERED: oxyCODONE/ACETAMINOPHEN 5 MG/325 MG TAB PO ONE ×2
== END 2017-08-22 00:10 | disposition home or self-care (01) ==
LOC: PHED 22:23
DX: S09.90XA Unspecified injury of head, initial encounter (principal); W19.XXXA Unspecified fall, initial encounter; Y92.007 Garden or yard of unspecified non-institutional (private) residence as the place of occurrence of the external cause; Z23 Encounter for immunization
CPT/HCPCS: 70450; 72125; 90471; 90715

== ENCOUNTER 2017-10-24 21:28 | Emergency (ER) | payer MEDICARE ==
[~2017-10-24 21:28] MED LIST changes: +HYDR1SOL6 PO
[2017-10-24 21:38] VITALS: BP 156/70; PULSE 77; RESP 16; TEMP 98.5; O2SAT 93
--- NOTE | 2017-10-24 22:42 | PD ---
HPI Chief Complaint: Fall Time Seen by Provider: 22:17 Travel History International Travel<30 days: No Contact w/Intl Traveler<30days: No Traveled to known affect area: No History of Present Illness HPI 77yo F presents to the ED with c/o right rib pain after falling onto the table today. Said she slip on house slippers while getting a remote control today. Denies any head trauma or LOC. Denies any fever, chest pain, sob, n/v, abdominal pain, focal weakness or numbness. PFSH Past Medical History Hx Anticoagulant Therapy: Yes (PLAVIX) Arthritis: Yes Anxiety: Yes Cancer: No Cardiac Catheterization: Yes (STENTS X 3) Cardiovascular Problems: Yes (CAD,STENTS) High Cholesterol: Yes Chest Pain: Yes COPD: Yes Cerebrovascular Accident: Yes Coronary Artery Disease: Yes Diabetes: Yes (Diet-controlled) Patient Takes Glucophage: No Diminished Hearing: No Diverticulitis: Yes Gastrointestinal Disorders: No GERD: Yes Genitourinary: No Hypertension: Yes Kidney Stones: Yes Musculoskeletal: Yes (CHRONIC JOINT DISEASE) Psychiatric: No Respiratory: Yes Immunizations Current: Yes Myocardial Infarction: Yes Thyroid Disease: Yes PNEUMOCCOCAL Vaccine (Year): 2009 ?: Not Menopausal: Yes Past Surgical History Cardiac Surgery: Yes Cholecystectomy: Yes Coronary Stent: Yes Genitourinary Surgery: Yes (BLADDER SURGERY) Pacemaker: No Social History Alcohol Use: No Tobacco Use: Yes (1 PPD) Substance Use: No Allergies-Medications (Allergen,Severity, Reaction): Coded Allergies: Sulfa (Sulfonamide Antibiotics) (Verified Allergy, Severe, FACIAL/MOUTH SWELLING, 10/24/17) aspirin (Verified Allergy, Unknown, Anaphylaxis, 10/24/17) Reported Meds & Prescriptions Reported Meds & Active Scripts Active Hydrocodone-Acetamin 5-325 mg (Hydrocodone/Acetaminophen) 5 Mg-325 Mg Tablet 1 Tab PO Q6HR PRN Reported Hydrocodon-Acetamin 7.5-325/15 (Hydrocodone/Acetaminophen) 7.5 Mg-325 Mg/15 Ml ( 15 Ml) Solution 7.5 Mg PO Q6HR NEB Metoprolol Tartrate 25 Mg Tab 25 Mg PO BID Plavix (Clopidogrel Bisulfate) 75 Mg Tab 75 Mg PO DAILY Levothyroxine (Levothyroxine Sodium) 88 Mcg Tab 88 Mcg PO DAILY Review of Systems Except as stated in HPI: all other systems reviewed are Neg Physical Exam Narrative GENERAL: 77yo F in mild distress. SKIN: Focused skin assessment warm/dry. HEAD: Atraumatic. Normocephalic. EYES: Pupils equal and round. No scleral icterus. No injection or drainage. ENT: No nasal bleeding or discharge. Mucous membranes pink and moist. NECK: No midline cervical spine ttp. CARDIOVASCULAR: Regular rate and rhythm. No murmur appreciated. RESPIRATORY: No accessory muscle use. Clear to auscultation. Breath sounds equal bilaterally. GASTROINTESTINAL: Abdomen soft, non-tender, nondistended. MUSCULOSKELETAL: +TTP right lower ribs. NEUROLOGICAL: Awake and alert. No obvious cranial nerve deficits. Motor grossly within normal limits. Normal speech. PSYCHIATRIC: Appropriate mood and affect; insight and judgment normal. Data Data Last Documented VS Vital Signs Date Time Temp Pulse Resp B/P (MAP) Pulse Ox O2 Delivery O2 Flow Rate FiO2 10/25/17 00:21 70 18 127/60 (82) 95 10/24/17 21:38 98.5 Orders Orders Ribs, Uni (W/Exp Cxr-Min 3vw) (10/24/17 ) Acetaminophen (Tylenol) (10/24/17 22:45) Lidocaine 5% Patch.12 Hr (Lidoderm 5% Pa (10/24/17 23:15) Morphine Inj (Morphine Inj) (10/24/17 23:30) Resp Incentive Spirometry (10/24/17 ) Ed Discharge Order (10/25/17 00:25) [facility] Medical Decision Making Medical Screen Exam Complete: Yes Emergency Medical Condition: Yes Differential Diagnosis Rib fracture vs. rib contusion Narrative Course 77yo F with right rib pain after mechanical fall. Denies any other complaints. Xray right ribs showed acute fractures involving the anterolateral aspects of right eighth, ninth and 10th ribs without pneumothorax noted. Pt given acetaminophen and lidoderm patch. Said she does not have much pain if she does not move. Will give incentive spirometer. I discussed with her son Mr. Orlando Reinoso at [phone] who lives with her and can come pick her up now. O2 sat 95% on RA. Denies any anticoagulation, only on plavix. Return precautions given. Diagnosis Primary Impression: Ribs, multiple fractures Qualified Codes: S22.41XA - Multiple fractures of ribs, right side, initial encounter for closed fracture Patient Instructions: General Instructions Departure Forms: Tests/Procedures Additional Instructions: Please return to the ED if symptoms worsen. Med/Other Pt SpecificInfo: Prescription(s) given Scripts Hydrocodone/Acetaminophen (Hydrocodone-Acetamin 5-325 mg) 5 Mg-325 Mg Tablet 1 TAB PO Q6HR Y for PAIN SCALE 1 TO 10, #7 Prov: Sofía Tyler DO 10/24/17 Disposition: 01 DISCHARGE HOME Condition: Stable Sofía Tyler DO Oct 24, 2017 22:42
[2017-10-24] MEDS ORDERED: ACETAMINOPHEN 325 MG TAB PO ONE (22:45)
--- NOTE | 2017-10-24 22:45 | RADRPT ---
EXAM DATE/TIME: 10/24/2017 22:06 [facility] COMPARISON: RIBS RIGHT(W PA CXR MIN 3VWS), July 06, 2016, 19:40. INDICATIONS : Right rib pain after falling onto the corner of a table. Pain is located mid right chest. MEDICAL HISTORY : None. SURGICAL HISTORY : None. ENCOUNTER: Initial ACUITY: 1 day PAIN SCORE: 10/10 LOCATION: Right chest FINDINGS: There are acute fractures involving the anterolateral aspect of the right eighth, ninth, and 10th rib s. No pneumothorax is noted. CONCLUSION: Acute fractures involving the anterolateral aspects of the right eighth, ninth and 10th ribs without pneumothorax noted. Andrew Marcus MD on October 24, 2017 at 22:41 Board Certified Radiologist. This report was verified electronically.
[2017-10-24] MEDS ORDERED: LIDOCAINE HCL 5% PATCH T-DERMAL ONE (23:15)
[2017-10-24] MEDS ORDERED: MORPHINE SULFATE 2 MG/ML INJ IM ONE (23:30)
[2017-10-24] MEDS ORDERED: HYDR-3516 PO (23:59)
[2017-10-25] VITALS: RESP 18
[2017-10-25 00:21] VITALS: BP 127/60
== END 2017-10-25 00:21 | disposition home or self-care (01) ==
LOC: PHEFT 21:28
DX: S22.41XA Multiple fractures of ribs, right side, initial encounter for closed fracture (principal); E78.00 Pure hypercholesterolemia, unspecified; I25.10 Atherosclerotic heart disease of native coronary artery without angina pectoris; J44.9 Chronic obstructive pulmonary disease, unspecified; E11.9 Type 2 diabetes mellitus without complications; K21.9 Gastro-esophageal reflux disease without esophagitis; I10 Essential (primary) hypertension; I25.2 Old myocardial infarction; W01.190A Fall on same level from slipping, tripping and stumbling with subsequent striking against furniture, initial encounter; F17.210 Nicotine dependence, cigarettes, uncomplicated; Z95.5 Presence of coronary angioplasty implant and graft; Z86.73 Personal history of transient ischemic attack (TIA), and cerebral infarction without residual deficits; Z79.01 Long term (current) use of anticoagulants
CPT/HCPCS: 71101; 94150; 99283

== ENCOUNTER 2017-10-31 16:43 | Observation (INO) | payer MEDICARE ==
[~2017-10-31] VITALS: Ht 162.6 cm; Wt 41.0 kg
[~2017-10-31 16:43] MED LIST changes: +HYDR-3516 PO
[2017-10-31 16:50] VITALS: BP 100/59; PULSE 65; RESP 18; TEMP 98.2; O2SAT 98
[2017-10-31 17:00] VITALS: BP 100/59; PULSE 46; RESP 18; O2SAT 93
--- NOTE | 2017-10-31 17:09 | PD ---
HPI Chief Complaint: General Weakness Time Seen by Provider: 17:02 Travel History International Travel<30 days: No Contact w/Intl Traveler<30days: No Traveled to known affect area: No History of Present Illness HPI 77yo F presents to the ED with c/o generalized weakness and feeling hungry. Said she has not eaten today because there is not much to eat. Denies any fever , chest pain, sob, n/v, abdominal pain, focal weakness or numbness. Pt is complaining about left foot pain that is cramping. Denies any trauma. Pt was recently seen after a fall and found to have right rib fractures. PFSH Past Medical History Hx Anticoagulant Therapy: Yes (PLAVIX) Arthritis: Yes Anxiety: Yes Cancer: No Cardiac Catheterization: Yes (STENTS X 3) Cardiovascular Problems: Yes (CAD,STENTS) High Cholesterol: Yes Chest Pain: Yes COPD: Yes Cerebrovascular Accident: Yes Coronary Artery Disease: Yes Diabetes: Yes (Diet-controlled) Patient Takes Glucophage: No Diminished Hearing: No Diverticulitis: Yes Gastrointestinal Disorders: No GERD: Yes Genitourinary: No Hypertension: Yes Kidney Stones: Yes Musculoskeletal: Yes (CHRONIC JOINT DISEASE) Psychiatric: No Respiratory: Yes Immunizations Current: Yes Myocardial Infarction: Yes Thyroid Disease: Yes PNEUMOCCOCAL Vaccine (Year): 2009 ?: Not Menopausal: Yes Past Surgical History Cardiac Surgery: Yes Cholecystectomy: Yes Coronary Stent: Yes Genitourinary Surgery: Yes (BLADDER SURGERY) Pacemaker: No Social History Alcohol Use: No Tobacco Use: Yes (1 PPD) Substance Use: No Allergies-Medications (Allergen,Severity, Reaction): Coded Allergies: Sulfa (Sulfonamide Antibiotics) (Verified Allergy, Severe, FACIAL/MOUTH SWELLING, 10/31/17) aspirin (Verified Allergy, Unknown, Anaphylaxis, 10/31/17) Reported Meds & Prescriptions Reported Meds & Active Scripts Active Hydrocodone-Acetamin 5-325 mg (Hydrocodone/Acetaminophen) 5 Mg-325 Mg Tablet 1 Tab PO Q6HR PRN Reported Hydrocodon-Acetamin 7.5-325/15 (Hydrocodone/Acetaminophen) 7.5 Mg-325 Mg/15 Ml ( 15 Ml) Solution 7.5 Mg PO Q6HR NEB Metoprolol Tartrate 25 Mg Tab 25 Mg PO BID Plavix (Clopidogrel Bisulfate) 75 Mg Tab 75 Mg PO DAILY Levothyroxine (Levothyroxine Sodium) 88 Mcg Tab 88 Mcg PO DAILY Review of Systems Except as stated in HPI: all other systems reviewed are Neg Physical Exam Narrative GENERAL: 77yo F not in distress. SKIN: Focused skin assessment warm/dry. HEAD: Atraumatic. Normocephalic. EYES: Pupils equal and round. No scleral icterus. No injection or drainage. ENT: No nasal bleeding or discharge. Mucous membranes pink and moist. NECK: Trachea midline. No JVD. CARDIOVASCULAR: Regular rate and rhythm. No murmur appreciated. RESPIRATORY: No accessory muscle use. Clear to auscultation. Breath sounds equal bilaterally. GASTROINTESTINAL: Abdomen soft, non-tender, nondistended. MUSCULOSKELETAL: Left foot: DP2+. TTP dorsum of foot. No erythema or swelling. Sensation intact. NEUROLOGICAL: Awake and alert. No obvious cranial nerve deficits. Motor grossly within normal limits. Normal speech. Sensation intact. PSYCHIATRIC: Appropriate mood and affect; insight and judgment normal. Data Data Last Documented VS Vital Signs Date Time Temp Pulse Resp B/P (MAP) Pulse Ox O2 Delivery O2 Flow Rate FiO2 10/31/17 17:00 46 18 100/59 (73) 93 Room Air 10/31/17 16:50 98.2 Orders Orders Complete Blood Count With Diff (10/31/17 17:02) Basic Metabolic Panel (Bmp) (10/31/17 17:02) Troponin I (10/31/17 17:02) Electrocardiogram (10/31/17 ) Urinalysis - C+S If Indicated (10/31/17 17:02) Foot, Limited (2vws) (10/31/17 ) Cath For Specimen (10/31/17 19:19) Type And Screen (10/31/17 19:36) Sodium Chloride 0.9... W/Pantoprazole In (10/31/17 19:36) Pantoprazole Inj (Protonix Inj) (10/31/17 20:00) Labs Laboratory Tests Test 10/31/17 17:14 10/31/17 19:35 White Blood Count 3.9 TH/MM3 Red Blood Count 3.65 MIL/MM3 Hemoglobin 9.2 GM/DL Hematocrit 30.0 % Mean Corpuscular Volume 82.2 FL Mean Corpuscular Hemoglobin 25.2 PG Mean Corpuscular Hemoglobin Concent 30.7 % Red Cell Distribution Width 15.9 % Platelet Count 392 TH/MM3 Mean Platelet Volume 7.0 FL Neutrophils (%) (Auto) 61.5 % Lymphocytes (%) (Auto) 24.5 % Monocytes (%) (Auto) 12.5 % Eosinophils (%) (Auto) 0.9 % Basophils (%) (Auto) 0.6 % Neutrophils # (Auto) 2.4 TH/MM3 Lymphocytes # (Auto) 1.0 TH/MM3 Monocytes # (Auto) 0.5 TH/MM3 Eosinophils # (Auto) 0.0 TH/MM3 Basophils # (Auto) 0.0 TH/MM3 CBC Comment DIFF FINAL Differential Comment Blood Urea Nitrogen 13 MG/DL Creatinine 0.62 MG/DL Random Glucose 129 MG/DL Calcium Level 8.2 MG/DL Sodium Level 139 MEQ/L Potassium Level 3.9 MEQ/L Chloride Level 106 MEQ/L Carbon Dioxide Level 31.3 MEQ/L Anion Gap 2 MEQ/L Estimat Glomerular Filtration Rate 94 ML/MIN Troponin I LESS THAN 0.02 NG/ML MDM Medical Decision Making Medical Screen Exam Complete: Yes Emergency Medical Condition: Yes Interpretation(s) EKG: Sinus bradycardia at 56bpm. LAD. NO ST segment elevation or depression. TWI aVL. Differential Diagnosis Elder abuse vs. electrolyte abnormality vs. dehydration vs. UTI vs. arrhythmia Narrative Course 77yo F with c/o generalized weakness and not having much to eat at home. She said she lives with her son and he has a girlfriend and is hardly home. I discussed with case management specialist and she is going to call [facility]. Labs reviewed, WBC low at 3.9. H/H low at 9.2/30.0, pt's last H/H was 13.1/39.7 in 06/2017. I did rectal exam and hemaprompt is positive. Protonix bolus and drip ordered. Troponin negative. Pt was given food and feels better. However, I do feel that this is a significant drop in H/H and that pt should be evaluated by GI and admitted for observation and trend H/H. Discussed with Dr. Quintanilla and accepted to her service. HemaPrompt Point of Care Internal Pos. & Neg. Controls: Passed Fecal Specimen Occult Blood: Positive Diagnosis Primary Impression: GI bleed Qualified Codes: K92.2 - Gastrointestinal hemorrhage, unspecified Admitting Information Admitting Physician Requests: Observation Sofía Tylerb 5, 2018 17:09
[2017-10-31 17:21] LABS: AUTOMATED NEUTROPHIL # 2.4 TH/MM3 (1.8-7.7); BASOPHIL % 0.6 % (0.0-2.0); EOSINOPHIL % 0.9 % (0.0-4.0); HEMOGLOBIN 9.2 GM/DL (11.6-15.3); LYMPH % 24.5 % (9.0-44.0); MEAN CELL VOLUME 82.2 FL (80.0-100.0); MEAN CORPUSCULAR HEMOGLOBIN 25.2 PG (27.0-34.0); MEAN CORPUSCULAR HGB CONC 30.7 % (32.0-36.0); MONO % 12.5 % (0.0-8.0); MONOCYTE # 0.5 TH/MM3 (0-0.9); NEUT % 61.5 % (16.0-70.0); PLATELET COUNT 392 TH/MM3 (150-450); RED BLOOD COUNT 3.65 MIL/MM3 (4.00-5.30); RED CELL DISTRIBUTION WIDTH 15.9 % (11.6-17.2); WHITE BLOOD COUNT 3.9 TH/MM3 (4.0-11.0)
[2017-10-31 17:29] LABS: CHLORIDE 106 MEQ/L (98-107); SODIUM (NA) 139 MEQ/L (136-145)
[2017-10-31 17:31] LABS: CALCIUM 8.2 MG/DL (8.5-10.1)
[2017-10-31 17:32] LABS: BICARBONATE 31.3 MEQ/L (21.0-32.0); BLOOD UREA NITROGEN 13 MG/DL (7-18); GLUCOSE,RANDOM 129 MG/DL (74-106)
--- NOTE | 2017-10-31 17:32 | RADRPT ---
EXAM DATE/TIME: 10/31/2017 17:16 [place] COMPARISON: No previous studies available for comparison. INDICATIONS : Left foot pain. MEDICAL HISTORY : None. SURGICAL HISTORY : None. ENCOUNTER: Initial ACUITY: 1 day PAIN SCORE: 0/10 LOCATION: Left foot. FINDINGS: Two view examination of the left foot demonstrates no soft tissue swelling, dislocation, or fracture. The calcaneus is intact. Bony mineralization is normal. CONCLUSION: Negative for fracture or dislocation. Follow up in 7-10 days is suggested if symptoms persist. Joseph Garcia MD FACR on October 31, 2017 at 17:29 Board Certified Radiologist. This report was verified electronically.
[2017-10-31 17:35] LABS: CREATININE 0.62 MG/DL (0.50-1.00); GLOMERULAR FILTRATION RATE 94 ML/MIN (>89)
[2017-10-31 17:39] LABS: TROPONIN I LESS THAN 0.02 NG/ML (0.02-0.05)
[2017-10-31 19:10] VITALS: BP 117/57; PULSE 65; RESP 16; O2SAT 97
[2017-10-31] MEDS ORDERED: PANTOPRAZOLE INJ 80 MG in SODIUM CHLORIDE 0.9% INJ 35 ML IV ONE (19:36)
[2017-10-31] MEDS ORDERED: PANTOPRAZOLE INJ 80 MG in SODIUM CHLORIDE 0.9% INJ 100 ML IV SCH (19:36)
[2017-10-31 20:01] LABS: BILIRUBIN, URINE NEG (NEG); GLUCOSE,URINE NEG (NEG); KETONE, URINE NEG (NEG); NITRITE,URINE NEG (NEG); PH, URINE 6.5 (5.0-8.5); URINE LEUKOCYTE ESTERASE LARGE (NEG)
[2017-10-31] MEDS ORDERED: ONDANSETRON HCL 4 MG/2 ML VIAL IV PUSH PRN (20:15)
[2017-10-31] MEDS ORDERED: SODIUM CHLORIDE 0.9% FLUSH 10 ML FLUSH IV FLUSH PRN (20:15)
[2017-10-31 20:22] LABS: BLOOD, URINE TRACE (NEG)
[2017-10-31 20:27] LABS: URINE COLOR YELLOW (YELLW/STRAW)
[2017-10-31 20:28] LABS: BACTERIA, URINE FEW /hpf; RENAL EPITHELIAL CELLS 0-5 /hpf; SQUAMOUS EPITHELIAL CELL URINE 0-5 /hpf (0-5); WHITE BLOOD CELL CLUMPS FEW
[2017-10-31] MEDS: SODIUM CHLOR 0.9% 1000 ML INJ 1,000 ML IV SCH (20:30)
[2017-10-31 20:45] VITALS: BP 103/46; PULSE 60; RESP 16; O2SAT 95
[2017-10-31] MEDS: PANTOPRAZOLE INJ 80 MG in SODIUM CHLORIDE 0.9% INJ 100 ML IV SCH (20:48)
[2017-10-31] MEDS: SODIUM CHLORIDE 0.9% FLUSH 10 ML FLUSH IV FLUSH SCH (21:21)
[2017-10-31 21:33] LABS: HEMATOCRIT 28.6 % (35.0-46.0); HEMOGLOBIN 8.8 GM/DL (11.6-15.3)
[2017-10-31 22:10] VITALS: BP 131/54; PULSE 61; RESP 16; O2SAT 96
[2017-10-31 23:10] VITALS: BP 133/53; PULSE 48; RESP 16; O2SAT 96
[2017-11-01] VITALS (7 sets, daily range): BP systolic 137–187; BP diastolic 64–78; PULSE 46–88; RESP 16–20; TEMP 96.4–98.8; O2SAT 93–96
[2017-11-01 02:57] LABS: HEMATOCRIT 27.2 % (35.0-46.0)
[2017-11-01] MEDS: PANTOPRAZOLE INJ 80 MG in SODIUM CHLORIDE 0.9% INJ 100 ML IV SCH ×3 (06:29→22:51)
[2017-11-01 06:38] LABS: AUTOMATED NEUTROPHIL # 3.3 TH/MM3 (1.8-7.7); BASOPHIL % 0.7 % (0.0-2.0); EOSINOPHIL # 0.1 TH/MM3 (0-0.4); EOSINOPHIL % 1.4 % (0.0-4.0); HEMATOCRIT 30.9 % (35.0-46.0); HEMOGLOBIN 9.4 GM/DL (11.6-15.3); LYMPH % 25.6 % (9.0-44.0); LYMPHOCYTE # 1.3 TH/MM3 (1.0-4.8); MEAN CELL VOLUME 81.9 FL (80.0-100.0); MEAN CORPUSCULAR HGB CONC 30.5 % (32.0-36.0); MEAN PLATELET VOLUME 7.7 FL (7.0-11.0); MONO % 9.8 % (0.0-8.0); MONOCYTE # 0.5 TH/MM3 (0-0.9); NEUT % 62.5 % (16.0-70.0); PLATELET COUNT 409 TH/MM3 (150-450); RED BLOOD COUNT 3.77 MIL/MM3 (4.00-5.30); RED CELL DISTRIBUTION WIDTH 15.9 % (11.6-17.2); WHITE BLOOD COUNT 5.2 TH/MM3 (4.0-11.0)
[2017-11-01 06:55] LABS: BICARBONATE 26.8 MEQ/L (21.0-32.0); CALCIUM 8.2 MG/DL (8.5-10.1)
[2017-11-01 06:59] LABS: CREATININE 0.54 MG/DL (0.50-1.00)
[2017-11-01] MEDS: SODIUM CHLORIDE 0.9% FLUSH 10 ML FLUSH IV FLUSH SCH ×2 (08:21→20:27)
[2017-11-01] MEDS ORDERED: cefTRIAXone INJ 1,000 MG in SODIUM CHLORIDE 0.9% INJ 100 ML IV SCH (09:00)
[2017-11-01] MEDS ORDERED: PANTOPRAZOLE SODIUM 40 MG VIAL IV PUSH SCH (09:00)
[2017-11-01] MEDS: SODIUM CHLOR 0.9% 1000 ML INJ 1,000 ML IV SCH ×2 (10:43→22:51)
--- NOTE | 2017-11-01 13:06 | HHI.HP ---
[facility] Rose Alexander MD Admission Diagnosis GI bleed Diagnoses: (1) GI bleed Diagnosis: Principal (2) UTI (urinary tract infection) Diagnosis: Principal Travel History International Travel<30 Days: No Contact w/Intl Traveler <30 Da: No Traveled to Known Affected Are: No History of Present Illness Mrs. Blakely is a 77-year-old female. She originally came in secondary to feeling weak and having hunger. She says that she has difficulty getting access to food, DCF has been contacted. Workup was performed and she is found to be positive for blood in her stool. She also has urinary tract infection. No fevers. No chest pain. No shortness of breath. No acute complaints from the patient when seen. Since time of admit her hemoglobin has been monitored closely and has trended from 9.2 to 9.4. At baseline she smokes 1 pack per day. Review of Systems Constitutional: COMPLAINS OF: Fatigue, DENIES: Fever, Change in appetite, Night Sweats Eyes: DENIES: Blurred vision, Diplopia, Eye inflammation, Eye pain Ears, nose, mouth, throat: DENIES: Tinnitus, Hearing loss, Vertigo, Nasal discharge Respiratory: DENIES: Apneas, Cough, Snoring, Wheezing, Shortness of breath Cardiovascular: DENIES: Chest pain, Palpitations, Syncope Gastrointestinal: DENIES: Abdominal pain, Black stools, Bloody stools Musculoskeletal: DENIES: Joint pain, Muscle aches, Stiffness Integumentary: DENIES: Abnormal pigmentation, Pruritus, Rash, Nail changes Hematologic/lymphatic: DENIES: Bruising, Lymphadenopathy Immunologic/allergic: DENIES: Eczema, Urticaria Neurologic: DENIES: Abnormal gait, Headache, Paresthesias Psychiatric: DENIES: Anxiety, Confusion, Hallucinations Past Family Social History Past Medical History Gastroesophageal reflux disease Hypertension History of nephro lithiasis History of hypothyroidism History of old myocardial infarction Coronary artery disease Osteoarthritis Gen. anxiety disorder Angina Hyperlipidemia COPD CVA Diabetes mellitus type 2 History of diverticulitis Past Surgical History Pacemaker placement Coronary stents Bladder surgery cholecystectomy Reported Medications Reported Meds & Active Scripts Active Hydrocodone-Acetamin 5-325 mg (Hydrocodone/Acetaminophen) 5 Mg-325 Mg Tablet 1 Tab PO Q6HR PRN Reported Hydrocodon-Acetamin 7.5-325/15 (Hydrocodone/Acetaminophen) 7.5 Mg-325 Mg/15 Ml ( 15 Ml) Solution 7.5 Mg PO Q6HR NEB Metoprolol Tartrate 25 Mg Tab 25 Mg PO BID Plavix (Clopidogrel Bisulfate) 75 Mg Tab 75 Mg PO DAILY Levothyroxine (Levothyroxine Sodium) 88 Mcg Tab 88 Mcg PO DAILY Allergies: Coded Allergies: Sulfa (Sulfonamide Antibiotics) (Verified Allergy, Severe, FACIAL/MOUTH SWELLING, 10/31/17) aspirin (Verified Allergy, Unknown, Anaphylaxis, 10/31/17) Active Ordered Medications Administered Medications Medications (Trade) Dose Ordered Sig/Debra Route PRN Reason Start Time Stop Time Status Last Admin Dose Admin Pantoprazole Sodium 80 mg/ Sodium Chloride 100 ml @ 10 mls/hr Q10H IV 10/31/17 20:00 11/01/17 06:29 Sodium Chloride 1,000 ml @ 70 mls/hr [id number] IV 10/31/17 20:14 11/01/17 10:43 Sodium Chloride (NS Flush) 2 ml BID IV FLUSH 10/31/17 21:00 11/01/17 08:21 Ceftriaxone Sodium 1000 mg/ Sodium Chloride 100 ml @ 200 mls/hr Q24H IV 11/01/17 09:00 11/01/17 09:35 Family History Patient denies any positive family medical history Social History Patient reports smoking 1 pack per day No alcohol abuse No illicit drug abuse Physical Exam Vital Signs Vital Signs Date Time Temp Pulse Resp B/P (MAP) Pulse Ox O2 Delivery O2 Flow Rate FiO2 11/01/17 08:00 98.2 70 20 160/70 (100) 93 11/01/17 08:00 88 11/01/17 06:50 96.8 60 16 148/64 (92) 94 11/01/17 02:10 46 11/01/17 00:00 96.4 64 18 155/69 (97) 95 10/31/17 23:20 10/31/17 23:10 48 16 133/53 (79) 96 Room Air 10/31/17 22:10 61 16 131/54 (79) 96 Room Air 10/31/17 20:45 60 16 103/46 (65) 95 Room Air 10/31/17 20:00 62 16 96 Room Air 10/31/17 19:10 65 16 117/57 (77) 97 Room Air 10/31/17 17:00 46 18 100/59 (73) 93 Room Air 10/31/17 16:54 16 98 Room Air 10/31/17 16:50 98.2 65 18 100/59 (73) 98 Physical Exam GENERAL: This is a well-nourished, well-developed patient, in no apparent distress. SKIN: No rashes, ecchymoses or lesions. Cool and dry. HEAD: Atraumatic. Normocephalic. No temporal or scalp tenderness. EYES: Pupils equal round and reactive. Extraocular motions intact. No scleral icterus. No injection or drainage. ENT: Nose without bleeding, purulent drainage or septal hematoma. Throat without erythema, tonsillar hypertrophy or exudate. Uvula midline. Airway patent. NECK: Trachea midline. No JVD or lymphadenopathy. Supple, nontender, no meningeal signs. CARDIOVASCULAR: Regular rate and rhythm without murmurs, gallops, or rubs. RESPIRATORY: Clear to auscultation. Breath sounds equal bilaterally. No wheezes , rales, or rhonchi. GASTROINTESTINAL: Abdomen soft, non-tender, nondistended. No hepato-splenomegaly , or palpable masses. No guarding. MUSCULOSKELETAL: Extremities without clubbing, cyanosis, or edema. No joint tenderness, effusion, or edema noted. No calf tenderness. Negative Homans sign bilaterally. NEUROLOGICAL: Awake and alert. Cranial nerves II through XII intact. Motor and sensory grossly within normal limits. Five out of 5 muscle strength in all muscle groups. Normal speech. Laboratory Laboratory Tests Test 10/31/17 17:14 10/31/17 19:35 10/31/17 21:25 11/01/17 02:30 White Blood Count 3.9 Red Blood Count 3.65 Hemoglobin 9.2 8.8 9.0 Hematocrit 30.0 28.6 27.2 Mean Corpuscular Volume 82.2 Mean Corpuscular Hemoglobin 25.2 Mean Corpuscular Hemoglobin Concent 30.7 Red Cell Distribution Width 15.9 Platelet Count 392 Mean Platelet Volume 7.0 Neutrophils (%) (Auto) 61.5 Lymphocytes (%) (Auto) 24.5 Monocytes (%) (Auto) 12.5 Eosinophils (%) (Auto) 0.9 Basophils (%) (Auto) 0.6 Neutrophils # (Auto) 2.4 Lymphocytes # (Auto) 1.0 Monocytes # (Auto) 0.5 Eosinophils # (Auto) 0.0 Basophils # (Auto) 0.0 CBC Comment DIFF FINAL Differential Comment Blood Urea Nitrogen 13 Creatinine 0.62 Random Glucose 129 Calcium Level 8.2 Sodium Level 139 Potassium Level 3.9 Chloride Level 106 Carbon Dioxide Level 31.3 Anion Gap 2 Estimat Glomerular Filtration Rate 94 Troponin I LESS THAN 0.02 Urine Color YELLOW Urine Turbidity CLEAR Urine pH 6.5 Urine Specific Taylor 1.020 Urine Protein NEG Urine Glucose (UA) NEG Urine Ketones NEG Urine Occult Blood TRACE Urine Nitrite NEG Urine Bilirubin NEG Urine Leukocyte Esterase LARGE Urine RBC 10-14 Urine WBC 50-99 Urine WBC Clumps FEW Urine Squamous Epithelial Cells 0-5 Urine Renal Epithelial Cells 0-5 Urine Bacteria FEW Microscopic Urinalysis Comment CULTURE INDICATED Test 11/01/17 05:18 White Blood Count 5.2 Red Blood Count 3.77 Hemoglobin 9.4 Hematocrit 30.9 Mean Corpuscular Volume 81.9 Mean Corpuscular Hemoglobin 25.0 Mean Corpuscular Hemoglobin Concent 30.5 Red Cell Distribution Width 15.9 Platelet Count 409 Mean Platelet Volume 7.7 Neutrophils (%) (Auto) 62.5 Lymphocytes (%) (Auto) 25.6 Monocytes (%) (Auto) 9.8 Eosinophils (%) (Auto) 1.4 Basophils (%) (Auto) 0.7 Neutrophils # (Auto) 3.3 Lymphocytes # (Auto) 1.3 Monocytes # (Auto) 0.5 Eosinophils # (Auto) 0.1 Basophils # (Auto) 0.0 CBC Comment AUTO DIFF Differential Comment AUTO DIFF CONFIRMED Blood Urea Nitrogen 10 Creatinine 0.54 Random Glucose 86 Calcium Level 8.2 Sodium Level 141 Potassium Level 3.8 Chloride Level 109 Carbon Dioxide Level 26.8 Anion Gap 5 Estimat Glomerular Filtration Rate 110 Date/Time Source Procedure Growth Status 10/31/17 19:35 Urine Clean Catch Urine Culture Pending Received Result Diagram: 11/01/17 0518 11/01/17 0518 Imaging Last Impressions Foot X-Ray 10/31/17 0000 Signed Impressions: Service Date/Time: Ryan, October 31, 2017 17:16 - CONCLUSION: Negative for fracture or dislocation. Follow up in 7-10 days is suggested if symptoms persist. Joseph Garcia MD FACR Caprini VTE Risk Assessment Caprini VTE Risk Assessment: Mod/High Risk (score >= 2) Caprini Risk Assessment Model Point Value = 1 Point Value = 2 Point Value = 3 Point Value = 5 Age 41-60 Minor surgery BMI > 25 kg/m2 Swollen legs Varicose veins or History of unexplained or recurrent spontaneous Oral contraceptives or hormone replacement Sepsis (< 1 month) Serious lung disease, including pneumonia (< 1 month) Abnormal pulmonary function Acute myocardial infarction Congestive heart failure (< 1 month) History of inflammatory bowel disease Medical patient at bed rest Age 61-74 Arthroscopic surgery Major open surgery (> 45 min) Laparoscopic surgery (> 45 min) Malignancy Confined to bed (> 72 hours) Immobilizing plaster cast Central venous access Age >= 75 History of VTE Family history of VTE Factor V Leiden Prothrombin [id number] Lupus anticoagulant Anticardiolipin antibodies Elevated serum homocysteine Heparin-induced thrombocytopenia Other congenital or acquired thrombophilia Stroke (< 1 month) Elective arthroplasty Hip, pelvis, or leg fracture Acute spinal cord injury (< 1 month) Prophylaxis Regimen Total Risk Factor Score Risk Level Prophylaxis Regimen 0-1 Low Early ambulation 2 Moderate Order ONE of the following: *Sequential Compression Device (SCD) *Heparin 5000 units SQ BID 3-4 Higher Order ONE of the following medications: *Heparin 5000 units SQ TID *Enoxaparin/Lovenox 40 mg SQ daily (WT < 150 kg, CrCl > 30 mL/min) *Enoxaparin/Lovenox 30 mg SQ daily (WT < 150 kg, CrCl > 10-29 mL/min) *Enoxaparin/Lovenox 30 mg SQ BID (WT < 150 kg, CrCl > 30 mL/min) AND/OR *Sequential Compression Device (SCD) 5 or more Highest Order ONE of the following medications: *Heparin 5000 units SQ TID (Preferred with Epidurals) *Enoxaparin/Lovenox 40 mg SQ daily (WT < 150 kg, CrCl > 30 mL/min) *Enoxaparin/Lovenox 30 mg SQ daily (WT < 150 kg, CrCl > 10-29 mL/min) *Enoxaparin/Lovenox 30 mg SQ BID (WT < 150 kg, CrCl > 30 mL/min) AND *Sequential Compression Device (SCD) Assessment and Plan Problem List: (1) GI bleed ICD Code: K92.2 - Gastrointestinal hemorrhage, unspecified Status: Acute (2) UTI (urinary tract infection) ICD Code: N39.0 - Urinary tract infection, site not specified Status: Acute Assessment and Plan 77 her old female admitted secondary to GI bleed and urinary tract infection GI bleed Hemoglobin has remained stable thus far Follow hemoglobin levels Gastroenterology consulted Continue protonix drip Urinary tract infection Continue Rocephin Follow urine culture Generalized weakness Continue physical therapy Possible dementia (per son) Consider cognitive evaluation after patient has been stabilized and infection has been treated Urinary tract infection could contribute to a component of encephalopathy which might make early testing and accurate Hypertension Follow blood pressures Continue baseline treatment Diabetes mellitus type 2 Follow blood sugars Insulin sliding scale Diabetic diet COPD No exacerbation No change to baseline treatment at this point Hyperlipidemia Continue present treatment Follow as an outpatient History of old myocardial infarction Coronary artery disease Angina No chest pain reported Follow clinically No change to baseline treatments Gastroesophageal reflux disease History of nephrolithiasis History of hypothyroidism Osteoarthritis Gen. anxiety disorder CVA Hx History of diverticulitis Patient at baseline without exacerbation of these conditions Follow clinically for changes No change to baseline treatments DVT prophylaxis SCDs No anticoagulation given GI bleed Physician Certification 2 Midnight Certification Type: Admission for Inpatient Services Order for Inpatient Services The services are ordered in accordance with Medicare regulations or non- Medicare payer requirements, as applicable. In the case of services not specified as inpatient-only, they are appropriately provided as inpatient services in accordance with the 2-midnight benchmark. Estimated LOS (days): 2 days is the estimated time the patient will need to remain in the hospital, assuming treatment plan goals are met and no additional complications. Post-Hospital Plan: Home Problem Qualifiers (1) GI bleed: Qualified Codes: K92.2 - Gastrointestinal hemorrhage, unspecified Mitchell Diaz MD Nov 01, 2017 13:06
[2017-11-01 13:59] LABS: HEMATOCRIT 32.7 % (35.0-46.0); HEMOGLOBIN 10.1 GM/DL (11.6-15.3)
[2017-11-01] MEDS ORDERED: ACETAMINOPHEN 325 MG TAB PO PRN (15:45)
--- NOTE | 2017-11-01 16:06 | EKG ---
Date Performed: 10/31/2017 Time Performed: 17:39:31 PTAGE: 77 years EKG: SINUS BRADYCARDIA MARKED LEFT AXIS DEVIATION ANTEROSEPTAL MYOCARDIAL INFARCTION ABNORMAL EC G Since the prior tracing, there has been no significant change PREVIOUS TRACING : 07/13/2017 12.56 DOCTOR: Amy Figueroa Interpretating Date/Time 11/01/2017 16:04:37
--- NOTE | 2017-11-01 21:09 | MB ---
cc: STACEY HARDY M.D. DATE OF CONSULTATION 11/01/2017 DATE OF [address] Quintanilla[address] REASON FOR REFERRAL Anemia. Thank you for the consultation. REASON FOR CONSULTATION A 77-year-old lady came because of general weakness and hunger. She said that she has difficulty accessing food and she was living with her son and DCF was contacted. The patient came to the hospital and she was found to have anemia and heme-positive stool. The patient is a very poor historian. She has it seems like urinary tract infection, she denied any GI symptoms and no nausea, no vomiting. She never had any endoscopy or colonoscopy done. REVIEW OF SYSTEMS All 12-point negative except HPI. PAST SURGICAL HISTORY Significant for: 1. Pacemaker placement. 2. Coronary stenting. 3. Bladder surgery. 4. Cholecystectomy. PAST MEDICAL HISTORY Significant for: 1. Reflux symptoms. 2. Hypertension. 3. Kidney stones. 4. Hypothyroidism. 5. Myocardial infarction. 6. Angina. 7. Hyperlipidemia. 8. Chronic obstructive pulmonary disease. 9. Cerebrovascular accident. 10. Diabetes. 11. Diverticulitis. 12. Osteoarthritis. SOCIAL HISTORY She smoked one pack a day. No drug or alcohol. FAMILY HISTORY Noncontributory. PHYSICAL EXAMINATION GENERAL: The patient seems to be comfortable lying in bed, alert, oriented. In no acute distress. HEENT: Pupils are round and reactive to light. NECK: Supple. CHEST: Clear to auscultation and percussion. CARDIOVASCULAR: Regular rate and rhythm. ABDOMEN: Soft, nondistended. Positive bowel sounds. EXTREMITIES: No edema, clubbing or cyanosis. NEUROLOGIC: Awake, oriented. No focal abnormality. PSYCHOLOGIC: Appropriate. LABORATORY DATA White count 5.2, hemoglobin 9.4, platelet 409. Chem-7 normal. ASSESSMENT/PLAN A 77-year-old lady with anemia, heme-positive stool. She does not remember that she had any endoscopy or colonoscopy in the past. We discussed doing those procedures. The patient is not very interested in that at this point. She said she wants to think about it before she makes a decision. We will give her the opportunity to think about it and we will visit with her tomorrow. If she would like to proceed we will do upper endoscopy and colonoscopy otherwise continue supportive care and will see how she does. MD JEANIE Ybarra /7:31 PM /8:37 PM
[2017-11-02 00:16] VITALS: BP 148/72; PULSE 57; RESP 16; TEMP 98; O2SAT 97
[2017-11-02 04:00] VITALS: BP 148/72; PULSE 57; RESP 16; TEMP 98; O2SAT 97
[2017-11-02 08:00] VITALS: PULSE 63
[2017-11-02 08:58] VITALS: BP 176/74; PULSE 63; RESP 18; TEMP 97.3; O2SAT 94
[2017-11-02] MEDS: SODIUM CHLORIDE 0.9% FLUSH 10 ML FLUSH IV FLUSH SCH (09:00)
[2017-11-02 09:54] LABS: THYROXINE (T4) 5.4 MCG/DL (4.8-13.9)
[2017-11-02 10:03] LABS: FREE T3 1.11 PG/ML (2.18-3.98)
--- NOTE | 2017-11-02 10:22 | HHI.FF ---
Face to Face Verification Diagnosis: (1) Weakness Physical Therapy Order: Evaluate and Treat, Improve ambulation Occupational Therapy Order: Gross motor coordination Home Health Nursing Order: Medical education Medication education-adverse effect I have seen patient Lianna Blakely on 11/02/17. My clinical findings support the need for the requested home health care services because: Ltd mobility - disease progression I certify that my clinical findings support that this patient is homebound because: Unsteady gait/balance Kelsi Kruse MD Nov 02, 2017 10:22
[2017-11-02] MEDS: PANTOPRAZOLE INJ 80 MG in SODIUM CHLORIDE 0.9% INJ 100 ML IV SCH (12:00)
--- NOTE | 2017-11-02 12:01 | HHI.DCPOC ---
Discharge Care Plan Diagnosis: (1) GI bleed Goals to Promote Your Health * To prevent worsening of your condition and complications * To maintain your health at the optimal level Directions to Meet Your Goals Take your medications as prescribed Follow your dietary instruction Follow activity as directed Keep your appointments as scheduled Take your immunizations and boosters as scheduled If your symptoms worsen call your PCP, if no PCP go to Urgent Care Center or Emergency Room Smoking is Dangerous to Your Health. Avoid second hand smoke Call the 24-hour hour crisis hotline for domestic abuse at Kelsi Kruse MD Nov 02, 2017 12:01
[2017-11-02] MEDS ORDERED: AUGM500T7 PO (12:10)
--- NOTE | 2017-11-02 12:10 | HHI.DS ---
Discharge Summary Admission Date Oct 31, 2017 at 20:16 Discharge Date: Nov 02, 2017 Admitting Diagnosis GI bleed (1) GI bleed ICD Code: K92.2 - Gastrointestinal hemorrhage, unspecified Status: Acute (2) UTI (urinary tract infection) ICD Code: N39.0 - Urinary tract infection, site not specified Status: Acute Procedures none Brief History - From Admission Mrs. Blakely is a 77-year-old female. She originally came in secondary to feeling weak and having hunger. She says that she has difficulty getting access to food, DCF has been contacted. Workup was performed and she is found to be positive for blood in her stool. She also has urinary tract infection. No fevers. No chest pain. No shortness of breath. No acute complaints from the patient when seen. Since time of admit her hemoglobin has been monitored closely and has trended from 9.2 to 9.4. At baseline she smokes 1 pack per day. CBC/BMP: 11/01/17 1350 11/01/17 0518 Significant Findings Laboratory Tests Test 10/31/17 17:14 10/31/17 19:35 10/31/17 21:25 11/01/17 02:30 White Blood Count 3.9 TH/MM3 (4.0-11.0) Red Blood Count 3.65 MIL/MM3 (4.00-5.30) Hemoglobin 9.2 GM/DL (11.6-15.3) 8.8 GM/DL (11.6-15.3) 9.0 GM/DL (11.6-15.3) Hematocrit 30.0 % (35.0-46.0) 28.6 % (35.0-46.0) 27.2 % (35.0-46.0) Mean Corpuscular Hemoglobin 25.2 PG (27.0-34.0) Mean Corpuscular Hemoglobin Concent 30.7 % (32.0-36.0) Monocytes (%) (Auto) 12.5 % (0.0-8.0) Random Glucose 129 MG/DL (74-106) Calcium Level 8.2 MG/DL (8.5-10.1) Anion Gap 2 MEQ/L (5-15) Troponin I LESS THAN 0.02 NG/ML Urine Occult Blood TRACE (NEG) Urine Leukocyte Esterase LARGE (NEG) Urine RBC 10-14 /hpf (0-3) Urine WBC 50-99 /hpf (0-5) Urine WBC Clumps FEW (NONE) Urine Bacteria FEW /hpf (NONE) Test 11/01/17 05:18 11/01/17 13:50 11/02/17 05:15 Red Blood Count 3.77 MIL/MM3 (4.00-5.30) Hemoglobin 9.4 GM/DL (11.6-15.3) 10.1 GM/DL (11.6-15.3) Hematocrit 30.9 % (35.0-46.0) 32.7 % (35.0-46.0) Mean Corpuscular Hemoglobin 25.0 PG (27.0-34.0) Mean Corpuscular Hemoglobin Concent 30.5 % (32.0-36.0) Monocytes (%) (Auto) 9.8 % (0.0-8.0) Calcium Level 8.2 MG/DL (8.5-10.1) Chloride Level 109 MEQ/L (98-107) Free Triiodothyronine (T3) pg/dL 1.11 PG/ML (2.18-3.98) Thyroid Stimulating Hormone 3rd Gen 20.500 uIU/ML (0.358-3.740) Imaging Last Impressions Foot X-Ray 10/31/17 0000 Signed Impressions: Service Date/Time: Tuesday, October 31, 2017 17:16 - CONCLUSION: Negative for fracture or dislocation. Follow up in 7-10 days is suggested if symptoms persist. Joseph Garcia MD FACR PE at Discharge GENERAL: This is a well-nourished, well-developed patient, in no apparent distress. CARDIOVASCULAR: Regular rate and rhythm without murmurs, gallops, or rubs. RESPIRATORY: Clear to auscultation. Breath sounds equal bilaterally. No wheezes , rales, or rhonchi. GASTROINTESTINAL: Abdomen soft, non-tender, nondistended. Normal active bowel sounds MUSCULOSKELETAL: Extremities without clubbing, cyanosis, or edema. NEURO: Alert & Oriented x4 to person, place, time, situation. Moves all ext x4 Pt update on day of discharge Doing better today, and no further bleeding. DC planned discussed with patient Hospital Course Hemoglobin has remained stable thus far and there is no further bleeding. Patient declined any endoscopy. Urine has been treated with Rocephin. E coli is sensitive to Augmentin. Pt Condition on Discharge: Good Discharge Disposition: Discharge Home Discharge Time: <= 30 minutes Discharge Instructions DIET: Follow Instructions for: As Tolerated, No Restrictions Activities you can perform: Regular-No Restrictions Follow up Referrals: PCP Follow-up - 1 Week Continued Medications: Clopidogrel (Plavix) 75 Mg Tab 75 MG PO DAILY for Blood Clot Prevention, #30 TAB 0 Refills Hydrocodone/Acetaminophen (Hydrocodon-Acetamin 7.5-325/15) 7.5 Mg-325 Mg/15 Ml ( 15 Ml) Solution 7.5 MG PO Q6HR NEB for Pain Management Hydrocodone/Acetaminophen (Hydrocodone-Acetamin 5-325 mg) 5 Mg-325 Mg Tablet 1 TAB PO Q6HR PRN for PAIN SCALE 1 TO 10, #7 Levothyroxine (Levothyroxine) 88 Mcg Tab 88 MCG PO DAILY for Thyroid, #30 TAB 0 Refills Metoprolol Tartrate (Metoprolol Tartrate) 25 Mg Tab 25 MG PO BID, #60 TAB 0 Refills Kelsi Kruse MD Nov 02, 2017 12:10
[2017-11-02] MEDS ORDERED: AMOXICILLIN/CLAVULANATE K 500 MG TAB PO SCH (13:00)
== END 2017-11-02 15:01 | disposition home health service (06) ==
LOC: PHED 16:43 → PHEDA 20:16 → PH3B 23:24
PROVIDERS: ADMIT Hospitalist; ATTEND Hospitalist
DX: K92.2 Gastrointestinal hemorrhage, unspecified (principal); N39.0 Urinary tract infection, site not specified; B96.20 Unspecified Escherichia coli [E. coli] as the cause of diseases classified elsewhere; I10 Essential (primary) hypertension; M79.672 Pain in left foot; E78.00 Pure hypercholesterolemia, unspecified; R07.9 Chest pain, unspecified; I25.119 Atherosclerotic heart disease of native coronary artery with unspecified angina pectoris; D64.9 Anemia, unspecified; J44.9 Chronic obstructive pulmonary disease, unspecified; E78.5 Hyperlipidemia, unspecified; E03.9 Hypothyroidism, unspecified; I25.2 Old myocardial infarction; E11.9 Type 2 diabetes mellitus without complications; K57.92 Diverticulitis of intestine, part unspecified, without perforation or abscess without bleeding; R53.1 Weakness; K21.9 Gastro-esophageal reflux disease without esophagitis; M19.90 Unspecified osteoarthritis, unspecified site; F41.9 Anxiety disorder, unspecified; Z95.5 Presence of coronary angioplasty implant and graft; Z95.0 Presence of cardiac pacemaker; Z87.442 Personal history of urinary calculi; E07.9 Disorder of thyroid, unspecified; F17.210 Nicotine dependence, cigarettes, uncomplicated; Z86.73 Personal history of transient ischemic attack (TIA), and cerebral infarction without residual deficits
CPT/HCPCS: 73620; 80048; 81001; 84436; 84443; 84481; 84484; 85014; 85018; 85025; 86850; 86900; 86901; 87077; 87086; 87186; 93005; 96361; 96365; 96366; 97116; 97162; 99285; C9113; G0378; G8987; G8988; J0696; J7030

== ENCOUNTER 2018-01-18 17:00 | Observation (INO) | payer MEDICARE ==
[~2018-01-18] VITALS: Ht 170.2 cm; Wt 43.1 kg
[2018-01-18] VITALS (8 sets, daily range): BP systolic 137–164; BP diastolic 60–69; PULSE 57–74; RESP 16; TEMP 98.4–98.7; O2SAT 92–96
[~2018-01-18 17:00] MED LIST changes: +AUGM500T7 PO
--- NOTE | 2018-01-18 17:16 | PD ---
HPI Chief Complaint: Edema Time Seen by Provider: 17:13 Travel History International Travel<30 days: No Contact w/Intl Traveler<30days: No Traveled to known affect area: No History of Present Illness HPI According to patient and grandson, their main concern for bringing the patient over is because of increased swelling to the left lower extremity. Has been ongoing for the past 2 days, generally both legs have a small amount of swelling but today he started to notice that the left lower extremity is much more swollen and develop a blister that popped on the top of the foot. They deny any alleviating or aggravating factors. Patient is able to ambulate with assistance. Patient denies any pain to her left lower extremity. Patient denies any associated factors such as fever, shortness of breath, chest pain, headache, rash, abdominal pain, nausea vomiting diarrhea. Allergy to sulfa, and aspirin Past medical history significant for hypothyroid, coronary artery disease with stents, CVA, HI, hypercholesterolemia, irregular heartbeat, hypertension, COPD, diverticulitis, cholecystectomy, smoker history, GERD, kidney stones, UTI, states diabetes diet controlled PFSH Past Medical History Hx Anticoagulant Therapy: Yes (PLAVIX) Arthritis: Yes Asthma: No Anxiety: Yes Depression: No Heart Rhythm Problems: Yes Cancer: No Cardiac Catheterization: Yes (STENTS X 3) Cardiovascular Problems: Yes (CAD,STENTS) High Cholesterol: Yes Chest Pain: Yes Congestive Heart Failure: No COPD: Yes Cerebrovascular Accident: Yes Coronary Artery Disease: Yes Diabetes: Yes (Diet-controlled) Diminished Hearing: No Diverticulitis: Yes Endocrine: Yes Gastrointestinal Disorders: No GERD: Yes Genitourinary: Yes Hiatal Hernia: No Hypertension: Yes Immune Disorder: No Kidney Stones: Yes Musculoskeletal: Yes (CHRONIC JOINT DISEASE) Neurologic: Yes (DENIES) Psychiatric: Yes Reproductive: No Respiratory: Yes (SMOKER) Immunizations Current: Yes Myocardial Infarction: Yes Thyroid Disease: Yes Ulcer: No PNEUMOCCOCAL Vaccine (Year): 2009 Menopausal: Yes Past Surgical History Abdominal Surgery: Yes (GALL BLADDER REMOVED.) Cardiac Surgery: Yes Cholecystectomy: Yes Coronary Stent: Yes Genitourinary Surgery: Yes (BLADDER SURGERY) Pacemaker: No Social History Alcohol Use: No Tobacco Use: Yes (1 PPD) Substance Use: No Allergies-Medications (Allergen,Severity, Reaction): Coded Allergies: Sulfa (Sulfonamide Antibiotics) (Verified Allergy, Severe, FACIAL/MOUTH SWELLING, 01/18/18) aspirin (Verified Allergy, Unknown, Anaphylaxis, 01/18/18) Reported Meds & Prescriptions Reported Meds & Active Scripts Active Reported Xanax (Alprazolam) 0.5 Mg Tab 0.5 Mg PO Q6H PRN Hydrocodon-Acetamin 7.5-325/15 (Hydrocodone/Acetaminophen) 7.5 Mg-325 Mg/15 Ml ( 15 Ml) Solution 7.5 Mg PO Q6HR NEB Metoprolol Tartrate 25 Mg Tab 25 Mg PO BID Plavix (Clopidogrel Bisulfate) 75 Mg Tab 75 Mg PO DAILY Levothyroxine (Levothyroxine Sodium) 88 Mcg Tab 88 Mcg PO DAILY Review of Systems General / Constitutional: No: Fever Eyes: No: Visual changes HENT: No: Headaches Cardiovascular: Positive: Edema Respiratory: No: Shortness of Breath Gastrointestinal: No: Abdominal Pain Genitourinary: No: Dysuria Musculoskeletal: No: Pain Skin: No Rash Neurologic: No: Weakness Psychiatric: No: Depression Endocrine: No: Polydipsia Hematologic/Lymphatic: No: Easy Bruising Physical Exam Narrative GENERAL: SKIN: Warm and dry. HEAD: Atraumatic. Normocephalic. EYES: Pupils equal and round. No scleral icterus. No injection or drainage. ENT: No nasal bleeding or discharge. Mucous membranes pink and moist. NECK: Trachea midline. No JVD. CARDIOVASCULAR: Regular rate and rhythm. RESPIRATORY: No accessory muscle use. Clear to auscultation. Breath sounds equal bilaterally. GASTROINTESTINAL: Abdomen soft, non-tender, nondistended. MUSCULOSKELETAL: Extremities without clubbing, cyanosis, rle trace edema, LLE 2 + edema. NEUROLOGICAL: Awake and alert. No obvious cranial nerve deficits. Motor grossly within normal limits. Five out of 5 muscle strength in the arms and legs. Normal speech. PSYCHIATRIC: Appropriate mood and affect; insight and judgment normal. Data Data Last Documented VS Vital Signs Date Time Temp Pulse Resp B/P (MAP) Pulse Ox O2 Delivery O2 Flow Rate FiO2 01/18/18 18:20 16 92 Room Air 01/18/18 18:19 64 01/18/18 17:05 98.7 Orders Orders Us Leg Venous Doppler (01/18/18 17:22) Complete Blood Count With Diff (01/18/18 17:22) Comprehensive Metabolic Panel (01/18/18 17:22) Ckmb (Isoenzyme) Profile (01/18/18 17:22) Troponin I (01/18/18 17:22) B-Type Natriuretic Peptide (01/18/18 17:22) Prothrombin Time / Inr (Pt) (01/18/18 17:22) Act Partial Throm Time (Ptt) (01/18/18 17:22) Lipase (01/18/18 17:22) Thyroid Stimulating Hormone (01/18/18 17:22) Chest, Single Ap (01/18/18 17:22) Iv Access Insert/Monitor (01/18/18 17:22) Ecg Monitoring (01/18/18 17:22) Oximetry (01/18/18 17:22) CKMB (01/18/18 17:40) CKMB% (01/18/18 17:40) Labs Laboratory Tests Test 01/18/18 17:40 White Blood Count 6.7 TH/MM3 Red Blood Count 3.59 MIL/MM3 Hemoglobin 8.4 GM/DL Hematocrit 27.4 % Mean Corpuscular Volume 76.1 FL Mean Corpuscular Hemoglobin 23.4 PG Mean Corpuscular Hemoglobin Concent 30.7 % Red Cell Distribution Width 19.9 % Platelet Count 349 TH/MM3 Mean Platelet Volume 7.6 FL CBC Comment AUTO DIFF Differential Total Cells Counted 100 Neutrophils % (Manual) 73 % Band Neutrophils % 1 % Lymphocytes % 22 % Monocytes % 3 % Eosinophils % 1 % Neutrophils # (Manual) 5.0 TH/MM3 Differential Comment FINAL DIFF MANUAL Platelet Estimate NORMAL Platelet Morphology Comment NORMAL Ovalocytes 1+ Prothrombin Time 12.4 SEC Prothromb Time International Ratio 1.2 RATIO Activated Partial Thromboplast Time 19.5 SEC Blood Urea Nitrogen 14 MG/DL Creatinine 0.72 MG/DL Random Glucose 126 MG/DL Total Protein 8.2 GM/DL Albumin 3.8 GM/DL Calcium Level 9.1 MG/DL Alkaline Phosphatase 58 U/L Aspartate Amino Transf (AST/SGOT) 35 U/L Alanine Aminotransferase (ALT/SGPT) 25 U/L Total Bilirubin 0.4 MG/DL Sodium Level 139 MEQ/L Potassium Level 3.4 MEQ/L Chloride Level 107 MEQ/L Carbon Dioxide Level 28.6 MEQ/L Anion Gap 3 MEQ/L Estimat Glomerular Filtration Rate 79 ML/MIN Total Creatine Kinase 206 U/L Creatine Kinase MB 4.4 NG/ML Creatine Kinase MB % 2.1 % Troponin I 0.07 NG/ML B-Type Natriuretic Peptide 100 PG/ML Lipase 72 U/L Thyroid Stimulating Hormone 3rd Gen 6.570 uIU/ML MDM Medical Decision Making Medical Screen Exam Complete: Yes Emergency Medical Condition: Yes Medical Record Reviewed: Yes Differential Diagnosis DVT versus peripheral edema versus renal failure versus congestive heart failure versus liver failure Narrative Course CBC shows no leukocytosis, anemia of 8.4/27.4, normal platelet count of 349. Coagulation profile is within normal limits Chemistry electrolytes are all within normal limits creatinine of 0.72 GFR 79, however normal LFTs AST of 35 ALT of 25. Alk phos of 58 and bilirubin of 0.4 which are both normal. However the patient's CK-MB and troponin were both slightly elevated at 4.4 and 0.07. Beta natruretic peptide is only 100. TSH is elevated at 6.57 consistent with hypothyroidism. Ultrasound lower extremity does not show any evidence of DVT per radiologist report Patient's edema to her lower extremity is most likely secondary to hypothyroidism, however of additional concern the patient's cardiac enzymes are elevated and thus the patient should be admitted for observation Diagnosis Primary Impression: LLE edema Additional Impression: Elevated cardiac enzymes Peter Servin MD Jan 18, 2018 17:16
[2018-01-18] MEDS ORDERED: ALPR.5 PO (17:45)
[2018-01-18 17:59] LABS: HEMATOCRIT 27.4 % (35.0-46.0); HEMOGLOBIN 8.4 GM/DL (11.6-15.3); MEAN CELL VOLUME 76.1 FL (80.0-100.0); MEAN CORPUSCULAR HEMOGLOBIN 23.4 PG (27.0-34.0); MEAN CORPUSCULAR HGB CONC 30.7 % (32.0-36.0); MEAN PLATELET VOLUME 7.6 FL (7.0-11.0); PLATELET COUNT 349 TH/MM3 (150-450); RED BLOOD COUNT 3.59 MIL/MM3 (4.00-5.30); RED CELL DISTRIBUTION WIDTH 19.9 % (11.6-17.2); WHITE BLOOD COUNT 6.7 TH/MM3 (4.0-11.0)
--- NOTE | 2018-01-18 18:03 | RADRPT ---
EXAM DATE/TIME: 01/18/2018 17:43 [facility] COMPARISON: CHEST SINGLE AP, July 13, 2017, 12:52. INDICATIONS : Shortness of breath. MEDICAL HISTORY : Diabetes mellitus type 2. Cerebrovascular disease. Chronic obstructive pulmonary disease.Cardiovascul ar disease. SURGICAL HISTORY : None. ENCOUNTER: Initial ACUITY: 1 day PAIN SCORE: 0/10 LOCATION: Bilateral chest FINDINGS: Lungs are hyperexpanded. There are chronic basilar predominant interstitial opacities again noted. No acute infiltrates seen. No pleural effusion or pneumothorax. Heart size stable, within normal limits. Tortuous and atherosclerotic aorta. There are calcified lymp h nodes in the mediastinum. CONCLUSION: Chronic findings as above. No acute cardiopulmonary disease demonstrated. Anthony Cardona MD on January 18, 2018 at 17:59 Board Certified Radiologist. This report was verified electronically.
[2018-01-18 18:15] LABS: CHLORIDE 107 MEQ/L (98-107); SODIUM (NA) 139 MEQ/L (136-145)
[2018-01-18 18:18] LABS: CALCIUM 9.1 MG/DL (8.5-10.1)
[2018-01-18 18:19] LABS: ALBUMIN 3.8 GM/DL (3.4-5.0); BICARBONATE 28.6 MEQ/L (21.0-32.0); BLOOD UREA NITROGEN 14 MG/DL (7-18); GLUCOSE,RANDOM 126 MG/DL (74-106)
[2018-01-18 18:22] LABS: ALT (GPT) 25 U/L (10-53); AST (GOT) 35 U/L (15-37); CREATININE 0.72 MG/DL (0.50-1.00); GLOMERULAR FILTRATION RATE 79 ML/MIN (>89)
[2018-01-18 18:23] LABS: TOTAL BILIRUBIN ADULT 0.4 MG/DL (0.2-1.0); TOTAL PROTEIN 8.2 GM/DL (6.4-8.2)
[2018-01-18 18:24] LABS: BANDS 1 % (0-6); LYMPHOCYTES 22 % (9-44); MONOCYTES 3 % (0-8); POLYS (SEG NEUTROPHILS) 73 % (16-70)
[2018-01-18 18:25] LABS: ALKALINE PHOSPHATASE 58 U/L (45-117); OVALOCYTES 1+ (NORMAL)
[2018-01-18 18:28] LABS: TROPONIN I 0.07 NG/ML (0.02-0.05)
[2018-01-18 18:30] LABS: INTERNATIONAL NORMALIZED RATIO 1.2 RATIO; PROTHROMBIN TIME - PATIENT 12.4 SEC (9.8-11.6)
--- NOTE | 2018-01-18 18:45 | RADRPT ---
EXAM DATE/TIME: 01/18/2018 18:20 [facility] COMPARISON: CT ABDOMEN & PELVIS W CONTRAST, December 18, 2016, 22:47. INDICATIONS : Left leg pain/swelling. MEDICAL HISTORY : Hypercholesterolemia. Hypertension. Gastroesophageal reflux disease. COPD. [place]. TIA. Anticoagulant therapy. Gallbladder disease. UTI. SURGICAL HISTORY : Cholecystectomy. Bladder surgery. Cardiac stents. ENCOUNTER: Subsequent ACUITY: 1 day PAIN SCORE: 2/10 LOCATION: Left leg. TECHNIQUE: Venous ultrasound of the leg was performed from the inguinal ligament to the proximal calf. Real-bebe e, color Doppler and spectral tracing, compression and augmentation techniques were used. FINDINGS: There is normal compressibility of the deep venous system from the inguinal region to the proximal ca lf. No echogenic clot is seen in the lumen of the common femoral, femoral, popliteal, and posterior tibial veins. There is a normal response of the venous system to proximal and distal augmentation an d respiration. CONCLUSION: Negative study. No venous thrombosis of the left lower extremity. Anthony Cardona MD on January 18, 2018 at 18:42 Board Certified Radiologist. This report was verified electronically.
[2018-01-18] MEDS ORDERED: POTASSIUM CHLORIDE 20 MEQ CONTROLLED RELEASE TAB PO ONE (19:30)
[2018-01-18] MEDS ORDERED: NALOXONE HCL 0.4 MG/ML AMP IV PUSH PRN (19:30)
[2018-01-18] MEDS ORDERED: SODIUM CHLORIDE 0.9% FLUSH 10 ML FLUSH IV FLUSH PRN (19:30)
[2018-01-18] MEDS: SODIUM CHLORIDE 0.9% FLUSH 10 ML FLUSH IV FLUSH SCH (21:00)
[2018-01-18] MEDS ORDERED: METOPROLOL TARTRATE 25 MG TAB PO ONE (23:00)
[2018-01-18 23:14] LABS: TROPONIN I 0.08 NG/ML (0.02-0.05)
[2018-01-19] VITALS: BP 130/55; PULSE 45; RESP 16; TEMP 97.6; O2SAT 92
[2018-01-19 04:00] VITALS: BP 145/66; PULSE 51; RESP 16; TEMP 97.8; O2SAT 94
[2018-01-19 05:57] LABS: AUTOMATED NEUTROPHIL # 3.6 TH/MM3 (1.8-7.7); BASOPHIL % 0.8 % (0.0-2.0); EOSINOPHIL # 0.1 TH/MM3 (0-0.4); EOSINOPHIL % 1.1 % (0.0-4.0); HEMOGLOBIN 8.6 GM/DL (11.6-15.3); LYMPH % 14.9 % (9.0-44.0); LYMPHOCYTE # 0.8 TH/MM3 (1.0-4.8); MEAN CELL VOLUME 76.4 FL (80.0-100.0); MEAN CORPUSCULAR HEMOGLOBIN 23.4 PG (27.0-34.0); MEAN CORPUSCULAR HGB CONC 30.6 % (32.0-36.0); MEAN PLATELET VOLUME 7.4 FL (7.0-11.0); MONO % 11.1 % (0.0-8.0); MONOCYTE # 0.6 TH/MM3 (0-0.9); NEUT % 72.1 % (16.0-70.0); PLATELET COUNT 325 TH/MM3 (150-450); RED BLOOD COUNT 3.66 MIL/MM3 (4.00-5.30); RED CELL DISTRIBUTION WIDTH 20.1 % (11.6-17.2); WHITE BLOOD COUNT 5.1 TH/MM3 (4.0-11.0)
[2018-01-19 06:21] LABS: OVALOCYTES 1+ (NORMAL)
[2018-01-19 06:40] LABS: BICARBONATE 28.6 MEQ/L (21.0-32.0); CALCIUM 8.8 MG/DL (8.5-10.1)
[2018-01-19 06:44] LABS: CREATININE 0.51 MG/DL (0.50-1.00)
[2018-01-19 06:45] LABS: TROPONIN I 0.07 NG/ML (0.02-0.05)
[2018-01-19 08:00] VITALS: BP 156/74; PULSE 67; RESP 18; TEMP 97.4; O2SAT 92
[2018-01-19] MEDS: SODIUM CHLORIDE 0.9% FLUSH 10 ML FLUSH IV FLUSH SCH (08:06)
[2018-01-19] MEDS ORDERED: METOPROLOL TARTRATE 25 MG TAB PO SCH (09:45)
[2018-01-19] MEDS ORDERED: LEVOTHYROXINE SODIUM 88 MCG TAB PO SCH (09:45)
[2018-01-19] MEDS ORDERED: ALPRAZolam 0.5 MG TAB PO PRN (09:45)
[2018-01-19] MEDS ORDERED: CLOPIDOGREL 75 MG TAB PO SCH (09:45)
--- NOTE | 2018-01-19 09:46 | HHI.HP ---
HPI Service [facility] Primary Care Physician No Primary Care Physician Admission Diagnosis PERIPHERAL EDEMA, ELEVATED CARDIAC ENZYMES Diagnoses: (1) Edema of left lower extremity Diagnosis: Principal (2) Cellulitis of left foot Diagnosis: Principal (3) Elevated troponin Diagnosis: Principal Chief Complaint: Left lower leg swelling Travel History International Travel<30 Days: No Contact w/Intl Traveler <30 Da: No Traveled to Known Affected Are: No History of Present Illness 77-year-old female with known history of hypertension, hyperlipidemia , coronary disease, history myocardial infarction, chronic obstructive pulmonary disease, chronic smoking, type II diabetic who presented to the hospital because a 2 day history of left lower extremity edema. Patient was in a normal state of health until 2 days ago when she started noticing some swelling in her left lower extremity. Progressively got worse where he did form a blister and erythema around the blister on the top of her foot. Patient usually gets swelling of her lower extremities and goes away if she rests, however the swelling did not improve so her son brought her to the hospital for evaluation. Patient did undergo ultrasound of the lower extremity which did not indicate any embolic event. Laboratory studies elicited equivocal troponin levels and because of that reason the ER physician recommended patient be observed in the hospital for further evaluation and management. Patient denies any chest pain, shortness of breath, dyspnea, lightheadedness, dizziness, diaphoresis. Patient denies any recent cardiac workup. Laboratory studies also indicate elevated TSH which is significantly improved since her recent admission in October. Review of Systems Cardiovascular: COMPLAINS OF: Lower Extremity Edema Except as stated in HPI: all other systems reviewed are Neg Past Family Social History Past Medical History Gastroesophageal reflux disease Hypertension History of nephro lithiasis History of hypothyroidism History of old myocardial infarction Coronary artery disease Osteoarthritis Gen. anxiety disorder Angina Hyperlipidemia COPD CVA Diabetes mellitus type 2 History of diverticulitis Past Surgical History Pacemaker placement Coronary stents Bladder surgery cholecystectomy Reported Medications Reported Meds & Active Scripts Active Reported Xanax (Alprazolam) 0.5 Mg Tab 0.5 Mg PO Q6H PRN Hydrocodon-Acetamin 7.5-325/15 (Hydrocodone/Acetaminophen) 7.5 Mg-325 Mg/15 Ml ( 15 Ml) Solution 7.5 Mg PO Q6HR NEB Metoprolol Tartrate 25 Mg Tab 25 Mg PO BID Plavix (Clopidogrel Bisulfate) 75 Mg Tab 75 Mg PO DAILY Levothyroxine (Levothyroxine Sodium) 88 Mcg Tab 88 Mcg PO DAILY Allergies: Coded Allergies: Sulfa (Sulfonamide Antibiotics) (Verified Allergy, Severe, FACIAL/MOUTH SWELLING, 01/18/18) aspirin (Verified Allergy, Unknown, Anaphylaxis, 01/18/18) Family History Family history is reviewed with the patient and there is no indication of any heart disease, lung disease, cancer, seizures, stroke Social History Patient does continue smoke 1 pack of cigarettes a day since she was 13 years old. Denies any alcohol or illicit drug Physical Exam Vital Signs Vital Signs Date Time Temp Pulse Resp B/P (MAP) Pulse Ox O2 Delivery O2 Flow Rate FiO2 01/19/18 08:00 97.4 67 18 156/74 (101) 92 01/19/18 04:00 97.8 51 16 145/66 (92) 94 01/19/18 00:00 97.6 45 16 130/55 (80) 92 01/19/18 00:00 92 Nasal Cannula 2.00 01/18/18 22:57 98.4 61 16 155/68 (97) 96 01/18/18 22:30 57 01/18/18 22:00 56 16 164/69 (100) 94 01/18/18 21:17 60 16 144/62 (89) 95 Room Air 01/18/18 19:05 60 16 137/60 (85) 95 Room Air 01/18/18 18:20 16 92 Room Air 01/18/18 18:19 64 16 140/65 (90) 92 Room Air 01/18/18 17:24 Room Air 01/18/18 17:05 98.7 74 16 156/64 (94) 96 Physical Exam GENERAL: Well-developed, well-nourished, in no acute distress. alert and orientated HEENT: Head is normocephalic without any lesions or masses noted. Facial features are symmetric. Eyes: Pupils equal round reactive to light. Extraocular muscles are intact. Conjunctivae were clear. Oropharyngeal: Pharynx without any erythema edema. Tongue is midline without deviation. Buccal mucosa is moist without any masses or lesions NECK: Supple without any masses. Trachea midline no deviation. No JVD, no bruits are appreciated CARDIAC: Regular rhythm, regular rate. S1/S2 are heard. No murmurs gallops or rubs. LUNGS: Clear to auscultation bilaterally. No wheeze, rhonchi or rales. No use of accessory muscles on inspiration or expiration. ABDOMEN: Soft, nontender. Nondistended. Bowel sounds heard in all 4 quadrants. No organomegaly or masses. Negative rebound, negative guarding EXTREMITIES: No edema, pulses are equal bilaterally. No cyanosis or clubbing NEUROLOGY: Mood and affect appear appropriate. Cranial nerves II through XII grossly intact. Muscle strength 5/5 in upper and lower extremities bilaterally. Deep tendon reflexes are 2+ in upper and lower extremities bilaterally. LEFT LOWER EXTREMITY: Patient does have some mild pitting edema noted from mid tibia down to anterior foot. There is a blister measuring 2 cm with surrounding erythema. Laboratory Laboratory Tests Test 01/18/18 17:40 01/18/18 19:57 01/18/18 22:38 01/19/18 04:45 White Blood Count 6.7 5.1 Red Blood Count 3.59 3.66 Hemoglobin 8.4 8.6 Hematocrit 27.4 28.0 Mean Corpuscular Volume 76.1 76.4 Mean Corpuscular Hemoglobin 23.4 23.4 Mean Corpuscular Hemoglobin Concent 30.7 30.6 Red Cell Distribution Width 19.9 20.1 Platelet Count 349 325 Mean Platelet Volume 7.6 7.4 CBC Comment AUTO DIFF AUTO DIFF Differential Total Cells Counted 100 Neutrophils % (Manual) 73 Band Neutrophils % 1 Lymphocytes % 22 Monocytes % 3 Eosinophils % 1 Neutrophils # (Manual) 5.0 Differential Comment FINAL DIFF MANUAL AUTO DIFF CONFIRMED Platelet Estimate NORMAL NORMAL Platelet Morphology Comment NORMAL NORMAL Ovalocytes 1+ 1+ Prothrombin Time 12.4 Prothromb Time International Ratio 1.2 Activated Partial Thromboplast Time 19.5 Blood Urea Nitrogen 14 11 Creatinine 0.72 0.51 Random Glucose 126 118 Total Protein 8.2 Albumin 3.8 Calcium Level 9.1 8.8 Alkaline Phosphatase 58 Aspartate Amino Transf (AST/SGOT) 35 Alanine Aminotransferase (ALT/SGPT) 25 Total Bilirubin 0.4 Sodium Level 139 142 Potassium Level 3.4 3.8 Chloride Level 107 111 Carbon Dioxide Level 28.6 28.6 Anion Gap 3 2 Estimat Glomerular Filtration Rate 79 117 Total Creatine Kinase 206 128 110 Creatine Kinase MB 4.4 Creatine Kinase MB % 2.1 Troponin I 0.07 0.08 0.07 B-Type Natriuretic Peptide 100 Lipase 72 Thyroid Stimulating Hormone 3rd Gen 6.570 Free Thyroxine 1.45 Total Triiodothyronine 53 Neutrophils (%) (Auto) 72.1 Lymphocytes (%) (Auto) 14.9 Monocytes (%) (Auto) 11.1 Eosinophils (%) (Auto) 1.1 Basophils (%) (Auto) 0.8 Neutrophils # (Auto) 3.6 Lymphocytes # (Auto) 0.8 Monocytes # (Auto) 0.6 Eosinophils # (Auto) 0.1 Basophils # (Auto) 0.0 Result Diagram: 01/19/185 01/19/18444 Imaging Last Impressions Lower Extremity Ultrasound 01/18/181721 Signed Impressions: Service Date/Time: Thursday, January 18, 2018 18:20 - CONCLUSION: Negative study. No venous thrombosis of the left lower extremity. Anthony Cardona MD Chest X-Ray 01/18/181721 Signed Impressions: Service Date/Time: Thursday, January 18, 2018 17:43 - CONCLUSION: Chronic findings as above. No acute cardiopulmonary disease demonstrated. Anthony Cardona MD Capnichellei VTE Risk Assessment Caprini VTE Risk Assessment: Mod/High Risk (score >= 2) Caprini Risk Assessment Model Point Value = 1 Point Value = 2 Point Value = 3 Point Value = 5 Age 41-60 Minor surgery BMI > 25 kg/m2 Swollen legs Varicose veins or History of unexplained or recurrent spontaneous Oral contraceptives or hormone replacement Sepsis (< 1 month) Serious lung disease, including pneumonia (< 1 month) Abnormal pulmonary function Acute myocardial infarction Congestive heart failure (< 1 month) History of inflammatory bowel disease Medical patient at bed rest Age 61-74 Arthroscopic surgery Major open surgery (> 45 min) Laparoscopic surgery (> 45 min) Malignancy Confined to bed (> 72 hours) Immobilizing plaster cast Central venous access Age >= 75 History of VTE Family history of VTE Factor V Leiden Prothrombin [id number] Lupus anticoagulant Anticardiolipin antibodies Elevated serum homocysteine Heparin-induced thrombocytopenia Other congenital or acquired thrombophilia Stroke (< 1 month) Elective arthroplasty Hip, pelvis, or leg fracture Acute spinal cord injury (< 1 month) Prophylaxis Regimen Total Risk Factor Score Risk Level Prophylaxis Regimen 0-1 Low Early ambulation 2 Moderate Order ONE of the following: *Sequential Compression Device (SCD) *Heparin 5000 units SQ BID 3-4 Higher Order ONE of the following medications: *Heparin 5000 units SQ TID *Enoxaparin/Lovenox 40 mg SQ daily (WT < 150 kg, CrCl > 30 mL/min) *Enoxaparin/Lovenox 30 mg SQ daily (WT < 150 kg, CrCl > 10-29 mL/min) *Enoxaparin/Lovenox 30 mg SQ BID (WT < 150 kg, CrCl > 30 mL/min) AND/OR *Sequential Compression Device (SCD) 5 or more Highest Order ONE of the following medications: *Heparin 5000 units SQ TID (Preferred with Epidurals) *Enoxaparin/Lovenox 40 mg SQ daily (WT < 150 kg, CrCl > 30 mL/min) *Enoxaparin/Lovenox 30 mg SQ daily (WT < 150 kg, CrCl > 10-29 mL/min) *Enoxaparin/Lovenox 30 mg SQ BID (WT < 150 kg, CrCl > 30 mL/min) AND *Sequential Compression Device (SCD) Assessment and Plan Assessment and Plan Left lower extremity edema with blister and cellulitis, improved -Extremity ultrasound was performed which did not indicate any DVT -Start Keflex 500 mg every 6 hours -Keep leg elevated -Physical therapy evaluation Equivocal troponin elevation and asymptomatic patient -Troponins have been monitored and have remained flat and equivocal -Echocardiogram was performed and compared to previous one from 10/13/15. Does not show any significant changes. Ejection fraction still 50-55%. PA peak pressure 48 mm/hg. Normal systolic function -EKGs were reviewed and compared to ones done over a year ago. Initial 2 EKGs did indicate flipped T waves in leads III, AVF, V2, V3, V4, V5 however when EKG was performed with changing of the leads the T-wave returned back to normal and corresponded with previous EKGs -Discussed with cardiology and reviewed all subjective/objective data. Recommending outpatient follow-up with primary medical doctor, would not recommend inpatient workup at this time Hypertension, hyperlipidemia, coronary disease, history of myocardial infarction -Continue home medications Hypothyroidism -TSH is actually improved from 2 months ago -Continue current thyroid medication dose Microcytic anemia, chronic -Hemoglobin remained stable DVT prevention -Early ambulation -Avoid chemical prophylaxis secondary recent GI bleed -Unable to use sequential compression devices on left lower extremity due to cellulitis and blister. Discharge disposition Discharge home in stable condition Activity: Ad kimberly. Diet: Healthy heart diet Medication per medication reconciliation Follow-up with primary medical doctor in 1 week Discussed Condition With Patient, son at bedside, nursing staff, Yaniv Wills Jan 19, 2018 09:46
[2018-01-19] MEDS ORDERED: ACETAMINOPHEN/HYDROcodone 325 MG/7.5 MG TAB PO PRN (10:15)
[2018-01-19 12:00] VITALS: BP 151/78; PULSE 72; RESP 18; TEMP 97.9; O2SAT 94
[2018-01-19] MEDS ORDERED: CEPHALEXIN MONOHYDRATE 500 MG CAP PO SCH (12:00)
--- NOTE | 2018-01-19 12:02 | ECHRPT ---
Indication: Peripheral edema CONCLUSIONS The left ventricular systolic function is low normal with an estimated ejection fraction in the rang e of 50- 55%. Wall thickness is normal. Normal left ventricular size. Mild thickening of the mitral valve leaflets. Mild mitral valve regurgitation. There is moderate tricuspid valve regurgitation. The estimated pulmonary arterial pressure is 48.2 mmHg. BP: / HR: Rhythm: MEASUREMENTS (Male / Female) Normal Values Technical Quality: 2D ECHO LV Diastolic Diameter PLAX 4.2 cm 4.2 - 5.9 / 3.9 - 5.3 cm LV Systolic Diameter PLAX 3.3 cm IVS Diastolic Thickness 1.0 cm 0.6 - 1.0 / 0.6 - 0.9 cm LVPW Diastolic Thickness 1.0 cm 0.6 - 1.0 / 0.6 - 0.9 cm LV Relative Wall Thickness 0.5 LVOT Diameter 1.8 cm M-MODE Aortic Root Diameter MM 1.7 cm LA Systolic Diameter MM 2.4 cm LA Ao Ratio MM 1.4 AV Cusp Separation MM 1.5 cm DOPPLER AV Peak Velocity 170.0 cm/s AV Peak Gradient 11.6 mmHg LVOT Peak Velocity 81.4 cm/s LVOT Peak Gradient 2.7 mmHg AV Area Cont Eq pk 1.2 cm MR Peak Velocity 428.5 cm/s MR Peak Gradient 73.4 mmHg Mitral E Point Velocity 147.0 cm/s Mitral A Point Velocity 109.0 cm/s Mitral E to A Ratio 1.3 LV E' Lateral Velocity 4.7 cm/s Mitral E to LV E' Lateral Ratio 31.4 LV E' Septal Velocity 5.1 cm/s Mitral E to LV E' Septal Ratio 29.0 TR Peak Velocity 309.0 cm/s TR Peak Gradient 38.2 mmHg Right Atrial Pressure 10.0 mmHg Pulmonary Artery Systolic Pressu 48.2 mmHg Right Ventricular Systolic Press 48.2 mmHg PV Peak Velocity 90.9 cm/s PV Peak Gradient 3.3 mmHg FINDINGS LEFT VENTRICLE The left ventricular systolic function is low normal with an estimated ejection fraction in the rang e of 50- 55%. Wall thickness is normal. Normal left ventricular size. RIGHT VENTRICLE Normal right ventricular size and systolic function. LEFT ATRIUM The left atrial size is normal. RIGHT ATRIUM The right atrial size is normal. ATRIAL SEPTUM Normal atrial septal thickness without atrial level shunting by limited color doppler interrogation. AORTA The aortic root and proximal ascending aorta are normal in size on limited imaging. MITRAL VALVE Mild thickening of the mitral valve leaflets. Mild mitral valve regurgitation. AORTIC VALVE Trileaflet aortic valve. No aortic valve stenosis or regurgitation. TRICUSPID VALVE There is moderate tricuspid valve regurgitation. The estimated pulmonary arterial pressure is 48.2 mmHg. PULMONARY VALVE No pulmonary valve regurgitation or stenosis. VESSELS The inferior vena cava is normal in size. PERICARDIUM No pericardial effusion. Derek Servin MD, FACC (Electronically Signed) Final Date:19 January 2018 12:01
[2018-01-19 13:00] VITALS: PULSE 52
[2018-01-19] MEDS ORDERED: CEPH500C PO (14:06)
--- NOTE | 2018-01-19 14:07 | HHI.DCPOC ---
Discharge Care Plan Diagnosis: (1) Cellulitis of left foot (2) Elevated troponin Goals to Promote Your Health * To prevent worsening of your condition and complications * To maintain your health at the optimal level Directions to Meet Your Goals Take your medications as prescribed Follow your dietary instruction Follow activity as directed Keep your appointments as scheduled Take your immunizations and boosters as scheduled If your symptoms worsen call your PCP, if no PCP go to Urgent Care Center or Emergency Room Smoking is Dangerous to Your Health. Avoid second hand smoke Call the 24-hour hour crisis hotline for domestic abuse at [facility] Vee Jan 19, 2018 14:07
[2018-01-19 16:00] VITALS: BP 148/75; PULSE 77; RESP 18; TEMP 97.6; O2SAT 95
--- NOTE | 2018-01-19 17:54 | EKG ---
Date Performed: 01/18/2018 Time Performed: 20:29:43 PTAGE: 77 years EKG: SINUS BRADYCARDIA SEPTAL MYOCARDIAL INFARCTION MODERATE T-WAVE ABNORMALITY, CONSIDER ANCELMO LATERAL ISCHEMIA now consider anteroseptal [place], age indeterminate ABNORMAL ECG PREVIOUS TRACING : 10/31/2017 17.39 DOCTOR: Segun Begum Interpretating Date/Time 01/19/2018 17:54:29
--- NOTE | 2018-01-19 17:55 | EKG ---
Date Performed: 01/19/2018 Time Performed: 04:49:40 PTAGE: 77 years EKG: SINUS BRADYCARDIA MARKED LEFT AXIS DEVIATION ANTEROSEPTAL MYOCARDIAL INFARCTION ABNORMAL EC G now consider anteroseptal [place], age indeterminate prolonged QT intervals. PREVIOUS TRACING : 01/18/2018 22.44 DOCTOR: Segun Begum Interpretating Date/Time 01/19/2018 18:37:09
--- NOTE | 2018-01-19 17:55 | EKG ---
Date Performed: 01/18/2018 Time Performed: 22:44:03 PTAGE: 77 years EKG: SINUS BRADYCARDIA WITH SINUS ARRHYTHMIA SEPTAL MYOCARDIAL INFARCTION MODERATE T-WAVE ABNORM ALITY, CONSIDER ANTEROLATERAL ISCHEMIA ABNORMAL ECG now consider anteroseptal [place], age indeterminate PREVIOUS TRACING : 01/18/2018 20.29 DOCTOR: Segun Begum Interpretating Date/Time 01/19/2018 17:54:42
== END 2018-01-19 18:22 | disposition home or self-care (01) ==
LOC: PHED 17:00 → PHEDA 19:23 → PH3A 22:17
PROVIDERS: ADMIT Hospitalist; ATTEND Hospitalist
DX: L03.116 Cellulitis of left lower limb (principal); R74.8 Abnormal levels of other serum enzymes; I10 Essential (primary) hypertension; R94.31 Abnormal electrocardiogram [ECG] [EKG]; E78.5 Hyperlipidemia, unspecified; E11.9 Type 2 diabetes mellitus without complications; D50.9 Iron deficiency anemia, unspecified; E78.00 Pure hypercholesterolemia, unspecified; I25.10 Atherosclerotic heart disease of native coronary artery without angina pectoris; I25.2 Old myocardial infarction; J44.9 Chronic obstructive pulmonary disease, unspecified; K21.9 Gastro-esophageal reflux disease without esophagitis; F17.210 Nicotine dependence, cigarettes, uncomplicated; Z86.73 Personal history of transient ischemic attack (TIA), and cerebral infarction without residual deficits; Z95.5 Presence of coronary angioplasty implant and graft; Z95.0 Presence of cardiac pacemaker; Z87.442 Personal history of urinary calculi; Z88.2 Allergy status to sulfonamides; Z79.84 Long term (current) use of oral hypoglycemic drugs
CPT/HCPCS: 71045; 80048; 80053; 82550; 82552; 83690; 83880; 84439; 84443; 84480; 84484; 85007; 85025; 85027; 85610; 85730; 93005; 93306; 93971; 97162; 99285; G0378; G8987; G8988

== ENCOUNTER 2018-02-12 00:36 | Emergency (ER) | payer MEDICARE ==
[~2018-02-12] VITALS: Ht 162.6 cm; Wt 45.7 kg
[~2018-02-12 00:36] MED LIST changes: +ALPR.5 PO; -AUGM500T7 PO; +CEPH500C PO; -HYDR-3516 PO
[2018-02-12 00:42] VITALS: BP 170/81; PULSE 64; RESP 20; TEMP 98.6; O2SAT 96
--- NOTE | 2018-02-12 02:32 | RADRPT ---
[facility] COMPARISON: No previous studies available for comparison. INDICATIONS : Pain due to fall. MEDICAL HISTORY : Hypercholesterolemia. Hypertension. Gastroesophageal reflux disease. COPD. AK. TIA. Anticoagulant the rapy. Gallbladder disease. UTI. SURGICAL HISTORY : Cholecystectomy. Bladder surgery. Cardiac stents. ENCOUNTER: Initial ACUITY: 2 days PAIN SCORE: 8/10 LOCATION: L-spine FINDINGS: Bones are osteopenic. Moderate degenerative disc disease. No acute fracture spondylolisthesis. CONCLUSION: 1. No acute fracture. Moderate degenerative disc disease. Osteopenia. Jitendra Falcon MD on February 12, 2018 at 2:08 Board Certified Radiologist. This report was verified electronically.
[2018-02-12 03:28] LABS: BILIRUBIN, URINE NEG (NEG); BLOOD, URINE TRACE (NEG); GLUCOSE,URINE NEG (NEG); KETONE, URINE NEG (NEG); NITRITE,URINE NEG (NEG); URINE COLOR YELLOW (YELLW/STRAW); URINE LEUKOCYTE ESTERASE MOD (NEG)
[2018-02-12 03:58] LABS: BACTERIA, URINE MOD /hpf; RBC, URINE 0-3 /hpf (0-3); SQUAMOUS EPITHELIAL CELL URINE > 8 /hpf (0-5); WBC, URINE INNUM /hpf (0-5); WHITE BLOOD CELL CLUMPS FEW
--- NOTE | 2018-02-12 04:28 | PD ---
HPI Chief Complaint: Fall Time Seen by Provider: 03:12 Travel History International Travel<30 days: No Contact w/Intl Traveler<30days: No Traveled to known affect area: No History of Present Illness HPI 77-year-old female presents to the emergency department by private transportation the care of her grandson for evaluation of low back pain and buttock pain status post non-syncopal slip and fall at 2 PM on Tuesday afternoon. Patient tripped on a cord and lost her balance and landed against a chair. Patient did not hit her head did not have loss of consciousness. Patient denies neck pain upper back pain chest pain rib pain shortness of breath or abdominal pain. Patient complains of low back pain and buttock pain that worsens with movement. No report of lower extremity numbness tingling or weakness. Patient did take pain medication at home at time of fall and then went to sleep and upon awakening noticed increased back pain. Patient was able to ambulate with assistance of her family member to the car in order to be driven to the emergency room for evaluation. The patient rates her pain 10/10 intensity with movement. Patient does not report any bladder or bowel dysfunction. No report of saddle anesthesia. No report of lower extremity paresthesia or weakness. No report of febrile illness. No report of chest pain or shortness of breath. Patient is not aware of any change in urination no dysuria frequency urgency hematuria or flank pain. Patient denies noting any bruising to the back or buttock area lower extremities. PFSH Past Medical History Hx Anticoagulant Therapy: Yes (PLAVIX) Arthritis: Yes Asthma: No Autoimmune Disease: No Anxiety: Yes Depression: No Heart Rhythm Problems: Yes Cancer: No Cardiac Catheterization: Yes (STENTS X 3) Cardiovascular Problems: Yes (CAD,STENTS) High Cholesterol: Yes Chest Pain: Yes Congestive Heart Failure: No COPD: Yes Cerebrovascular Accident: Yes (TIA) Coronary Artery Disease: Yes Diabetes: Yes (Diet-controlled) Patient Takes Glucophage: Yes Diminished Hearing: No Diverticulitis: Yes Endocrine: Yes Gastrointestinal Disorders: Yes GERD: Yes Genitourinary: Yes Hiatal Hernia: No Hypertension: Yes Immune Disorder: No Kidney Stones: Yes Musculoskeletal: Yes (CHRONIC JOINT DISEASE) Neurologic: Yes (DENIES) Psychiatric: Yes Reproductive: No Respiratory: Yes (SMOKER) Immunizations Current: Yes Myocardial Infarction: Yes Thyroid Disease: Yes Ulcer: No Tetanus Vaccination: < 5 Years Influenza Vaccination: Yes PNEUMOCCOCAL Vaccine (Year): 2009 Menopausal: Yes Past Surgical History Abdominal Surgery: Yes (GALL BLADDER REMOVED.) Cardiac Surgery: Yes Cholecystectomy: Yes Coronary Stent: Yes Genitourinary Surgery: Yes (BLADDER SURGERY) Pacemaker: No Other Surgery: Yes Social History Alcohol Use: No Tobacco Use: Yes (1 PPD) Substance Use: No Allergies-Medications (Allergen,Severity, Reaction): Coded Allergies: Sulfa (Sulfonamide Antibiotics) (Verified Allergy, Severe, FACIAL/MOUTH SWELLING, 02/12/18) aspirin (Verified Allergy, Unknown, Anaphylaxis, 02/12/18) Reported Meds & Prescriptions Reported Meds & Active Scripts Active Keflex (Cephalexin) 500 Mg Capsule 500 Mg PO Q6H 7 Days Cephalexin 500 Mg Cap 500 Mg PO Q6HR 5 Days Reported Xanax (Alprazolam) 0.5 Mg Tab 0.5 Mg PO Q6H PRN Hydrocodon-Acetamin 7.5-325/15 (Hydrocodone/Acetaminophen) 7.5 Mg-325 Mg/15 Ml ( 15 Ml) Solution 7.5 Mg PO Q6HR NEB Metoprolol Tartrate 25 Mg Tab 25 Mg PO BID Plavix (Clopidogrel Bisulfate) 75 Mg Tab 75 Mg PO DAILY Levothyroxine (Levothyroxine Sodium) 88 Mcg Tab 88 Mcg PO DAILY Review of Systems Except as stated in HPI: all other systems reviewed are Neg General / Constitutional: No: Fever, Chills HENT: No: Congestion Cardiovascular: No: Chest Pain or Discomfort Respiratory: No: Shortness of Breath Gastrointestinal: No: Abdominal Pain Genitourinary: No: Pelvic Pain, Flank Pain Musculoskeletal: Positive: Myalgias, Arthralgias, Pain (Low back and buttock pain) Skin: No Rash Neurologic: No: Weakness Psychiatric: No: Anxiety Hematologic/Lymphatic: No: Easy Bruising Physical Exam Narrative GENERAL: Elderly female no acute distress no respiratory distress SKIN: Warm and dry. HEAD: Normocephalic. EYES: No scleral icterus. No injection or drainage. NECK: Supple, trachea midline. No JVD or lymphadenopathy. CARDIOVASCULAR: Regular rate and rhythm without murmurs, gallops, or rubs. RESPIRATORY: Breath sounds equal bilaterally. No accessory muscle use. GASTROINTESTINAL: Abdomen soft, non-tender, nondistended. MUSCULOSKELETAL: No cyanosis, or edema. Tenderness to palpation along the lower lumbar spine no bony step-off no ecchymosis no abrasion no erythema mild subacute to chronic skin irritation at the buttock cleft no ulceration no induration. Negative straight leg raising bilaterally. BACK: Nontender without obvious deformity. No CVA tenderness. Data Data Last Documented VS Vital Signs Date Time Temp Pulse Resp B/P (MAP) Pulse Ox O2 Delivery O2 Flow Rate FiO2 02/12/18 04:38 98.2 75 16 162/74 (103) 100 Orders Orders Urinalysis - C+S If Indicated (02/12/18 03:12) Ct Lumb Spine W/O Contrast (02/12/18 ) Pelvis, Ap Only (Routine) (02/12/18 ) Spine, Lumbar - Ltd (Ap & Lat) (02/12/18 ) Urine Culture (02/12/18 03:10) Cephalexin (Keflex) (02/12/18 04:30) Acetamin-Hydrocod 325-5 Mg (Angier 5-325 (02/12/18 04:30) Labs Laboratory Tests Test 02/12/18 03:10 Urine Color YELLOW Urine Turbidity SL CLOUDY Urine pH 7.0 Urine Specific [place] 1.010 Urine Protein NEG mg/dL Urine Glucose (UA) NEG mg/dL Urine Ketones NEG mg/dL Urine Occult Blood TRACE Urine Nitrite NEG Urine Bilirubin NEG Urine Urobilinogen 0.2 MG/DL Urine Leukocyte Esterase MOD Urine RBC 0-3 /hpf Urine WBC INNUM /hpf Urine WBC Clumps FEW Urine Squamous Epithelial Cells > 8 /hpf Urine Bacteria MOD /hpf Microscopic Urinalysis Comment CULTURE INDICATED MDM Medical Decision Making Medical Screen Exam Complete: Yes Emergency Medical Condition: Yes Medical Record Reviewed: Yes Interpretation(s) CT lumbar spine w/o: FINDINGS: There is a relatively nondisplaced fracture through the right lateral process of L1. No other lumbar fractures identified. No subluxation. There is moderate degenerative disc disease similar to November 2016 with mild central canal lateral recess stenosis at L3-4 and moderate central canal and foraminal stenosis at L4 and 5. CONCLUSION: 1. Relatively nondisplaced fracture through right lateral process of L1. No vertebral body fracture identified. Degenerative disc disease similar to prior exam. Jitendra Falcon MD on February 12, 2018 at 4:42 Board Certified Radiologist. This report was verified electronically. Differential Diagnosis Compression fracture, lumbar disc disease, DDD/DJD, musculoskeletal pain, pelvic fracture, UTI; history and exam are consistent with cauda equina Narrative Course Patient with fall approximate 12 hours prior to arrival to the emergency department with increased pain after awakening from sleep. Patient able to come to the emergency department by private vehicle. Patient demonstrates pain with range of motion. Imaging studies ordered along with urinalysis Imaging studies reveal no acute bony abnormality of the lumbar spine or pelvis Urinalysis is abnormal with positive white blood cells clumped white blood cells and bacteria cultures indicated Imaging study of the lumbar spine by CT ordered to evaluate for occult fracture Patient and grandson informed of imaging results which shows lateral process nondisplaced fracture at L1. No other bony abnormality or fracture is identified. Patient has localized pain. Patient is stable for outpatient management. Grandroxy is shown imaging studies. Patient reports that she is out of her pain medication therefore prescription for Percocet 5/325 written for 5 doses. Patient also written for prescription for antibiotic for UTI. Diagnosis Primary Impression: Lumbar transverse process fracture Qualified Codes: S32.009A - Unspecified fracture of unspecified lumbar vertebra, initial encounter for closed fracture Additional Impressions: UTI (urinary tract infection) Acute exacerbation of chronic low back pain Referrals: Primary Care Physician 2 days Patient Instructions: Narcotic given in the ED, General Instructions Additional Instructions: Apply ice intermittently to low back then moist heat intermittently for comfort purposes Take your chronic medications as chronically prescribed Complete course of antibiotic as prescribed Follow-up with your primary care provider, Tuesday Use walker to assist ambulation Return to the emergency department for any concerns or change in condition Increase fluid hydration Med/Other Pt SpecificInfo: Prescription(s) given Scripts Oxycodone-Acetaminophen (Percocet) 5-325 mg Tab 1 TAB PO Q6H Y for PAIN, #5 TAB 0 Refills Prov: Ronna De Anda MD 02/12/18 Cephalexin (Keflex) 500 Mg Capsule 500 MG PO Q6H for Infection for 7 Days, #28 CAP 0 Refills Prov: Ronna De Anda MD 02/12/18 Disposition: 01 DISCHARGE HOME Condition: Stable Ronna De Anda MD February 12, 2018 04:28
[2018-02-12] MEDS ORDERED: ACETAMINOPHEN/HYDROcodone 325 MG/5 MG TAB PO ONE (04:30)
[2018-02-12] MEDS ORDERED: CEPHALEXIN MONOHYDRATE 500 MG CAP PO ONE (04:30)
[2018-02-12] MEDS ORDERED: CEPH-460 PO (04:31)
[2018-02-12 04:38] VITALS: BP 162/74; TEMP 98.2
--- NOTE | 2018-02-12 04:46 | RADRPT ---
EXAM DATE/TIME: 02/12/2018 03:57 [facility] COMPARISON: CT LUMBAR SPINE W/O CONTRAST, December 18, 2016, 22:47. INDICATIONS : Trauma. Fall. Low back pain. RADIATION DOSE: 13.30 CTDIvol (mGy) MEDICAL HISTORY : Cerebrovascular disease. Chronic obstructive pulmonary disease. Myocardial infarction.Hypertension. Diabetes. SURGICAL HISTORY : Cholecystectomy. Coronary artery stent. ENCOUNTER: Initial ACUITY: 1 day PAIN SCALE: 7/10 LOCATION: Lumbar spine. TECHNIQUE: Volumetric scanning of the lumbar spine was performed. Multiplanar reconstructions in the sagittal, coronal and oblique axial planes were performed. Using automated exposure control and adjustment of the mA and/or kV according to patient size, radiation dose was kept as low as reasonably achievable t o obtain optimal diagnostic quality images. DICOM format image data is available electronically for review and comparison. FINDINGS: There is a relatively nondisplaced fracture through the right lateral process of L1. No other lumbar fractures identified. No subluxation. There is moderate degenerative disc disease similar to November 2016 with mild central canal lateral rec ess stenosis at L3-4 and moderate central canal and foraminal stenosis at L4 and 5. CONCLUSION: 1. Relatively nondisplaced fracture through right lateral process of L1. No vertebral body fracture i dentified. Degenerative disc disease similar to prior exam. Jitendra Falcon MD on February 12, 2018 at 4:42 Board Certified Radiologist. This report was verified electronically.
[2018-02-12] MEDS ORDERED: PERC5TAB12 PO (05:10)
--- NOTE | 2018-02-12 15:55 | RADHPO ---
[facility] COMPARISON: No previous studies available for comparison. INDICATIONS : Pain due to fall. MEDICAL HISTORY : Hypercholesterolemia. Hypertension. Gastroesophageal reflux disease. COPD. [place]. TIA. Anticoagulant the rapy. Gallbladder disease. UTI. SURGICAL HISTORY : Cholecystectomy. Bladder surgery. Cardiac stents. ENCOUNTER: Initial ACUITY: 2 days PAIN SCORE: 8/10 LOCATION: L-spine FINDINGS: Bones are osteopenic. Moderate degenerative disc disease. No acute fracture spondylolisthesis. CONCLUSION: 1. No acute fracture. Moderate degenerative disc disease. Osteopenia. Jitendra Falcon MD on February 12, 2018 at 2:08 Board Certified Radiologist. This report was verified electronically.
--- NOTE | 2018-02-13 12:39 | RADRPT ---
EXAM DATE/TIME: 02/12/2018 01:31 [facility] COMPARISON: No previous studies available for comparison. INDICATIONS : Pain due to fall MEDICAL HISTORY : Hypercholesterolemia. Hypertension. Gastroesophageal reflux disease. COPD. [place]. TIA. Anticoagulant the rapy. Gallbladder disease. UTI. SURGICAL HISTORY : Cholecystectomy. Bladder surgery. Cardiac stents. ENCOUNTER: Initial ACUITY: 2 days PAIN SCORE: 8/10 LOCATION: pelvis FINDINGS: A single frontal view of the pelvis demonstrates no evidence of fracture. The bony pelvic ring is in tact. Bony mineralization is decreased. The soft tissues are intact. CONCLUSION: 1. Osteopenia. No acute findings. Jitendra Falcon MD on February 12, 2018 at 2:53 Board Certified Radiologist. This report was verified electronically.
--- NOTE | 2018-02-13 12:39 | RADRPT ---
EXAM DATE/TIME: 02/12/2018 01:32 [facility] COMPARISON: No previous studies available for comparison. INDICATIONS : Pain due to fall. MEDICAL HISTORY : Hypercholesterolemia. Hypertension. Gastroesophageal reflux disease. COPD. [place]. TIA. Anticoagulant the rapy. Gallbladder disease. UTI. SURGICAL HISTORY : Cholecystectomy. Bladder surgery. Cardiac stents. ENCOUNTER: Initial ACUITY: 2 days PAIN SCORE: 8/10 LOCATION: L-spine FINDINGS: Bones are osteopenic. Moderate degenerative disc disease. No acute fracture spondylolisthesis. CONCLUSION: 1. No acute fracture. Moderate degenerative disc disease. Osteopenia. Jitendra Falcon MD on February 12, 2018 at 2:08 Board Certified Radiologist. This report was verified electronically.
== END 2018-02-12 05:39 | disposition home or self-care (01) ==
LOC: PHED 00:36
DX: S32.009A Unspecified fracture of unspecified lumbar vertebra, initial encounter for closed fracture (principal); N39.0 Urinary tract infection, site not specified; G89.29 Other chronic pain; M54.5 Low back pain; Z79.01 Long term (current) use of anticoagulants; E78.00 Pure hypercholesterolemia, unspecified; J44.9 Chronic obstructive pulmonary disease, unspecified; E11.9 Type 2 diabetes mellitus without complications; K21.9 Gastro-esophageal reflux disease without esophagitis; I10 Essential (primary) hypertension; I25.2 Old myocardial infarction; F17.200 Nicotine dependence, unspecified, uncomplicated
CPT/HCPCS: 72100; 72131; 72170; 81001; 87086; 99284

== ENCOUNTER 2018-07-16 08:34 | Inpatient (IN) ==
--- NOTE | 2018-07-16 08:54 | ED ---
HPI General Chief Complaint: Fall Stated Complaint: fall Time Seen by Provider: 07/16/18 08:46 Source: patient and EMS Mode of arrival: EMS Limitations: no limitations History of Present Illness HPI Narrative: 77 years old female complains of facial pain. Patient states that she fell out of bed this morning. Patient denies loss of consciousness. Patient denies any headache or neck pain. Patient denies any chest pain shortness of breath. Patient denies abdominal pain. Patient denies any extremity injury. Patient denies any focal weakness or numbness of extremity. Patient states the pain is sharp pain localized to the right side of face around the right eye. Patient denies any pain radiation. Patient denies any visual change. Patient has history of CAD and on Plavix. Patient has history of anemia, GERD, GI bleed, CAD, hyperlipidemia, COPD, hypertension, anxiety and dementia. Related Data Home Medications Medication Instructions Recorded Confirmed alprazolam 0.5 mg PO BID 07/16/18 07/16/18 donepezil [Aricept] 10 mg PO DAILY 07/16/18 07/16/18 escitalopram oxalate [Lexapro] 10 mg PO DAILY 07/16/18 07/16/18 levothyroxine 112 mcg PO DAILY 07/16/18 07/16/18 loperamide 2 mg PO BID 07/16/18 07/16/18 oxycodone-acetaminophen 1 tab PO Q4-6H PRN 07/16/18 07/16/18 pantoprazole 40 mg PO DAILY 07/16/18 07/16/18 Allergies Allergy/AdvReac Type Severity Reaction Status Date / Time Sulfa (Sulfonamide Allergy Severe FACIAL/MOUTH Verified 07/16/18 09:24 Antibiotics) SWELLING aspirin Allergy Unknown Anaphylaxis Verified 07/16/18 09:24 Review of Systems ROS: all other systems reviewed are negative PMFSH History History Provided By: Patient Social History Social History Second Hand Smoke Exposure: No Smoking Status: Never smoker How Often Do You Have a Drink Containing Alcohol: Never Exam Narrative Exam Narrative: GENERAL: Well-nourished, well-developed patient. SKIN: Focused skin assessment warm/dry. HEAD: Normocephalic. EYES: No scleral icterus. No injection or drainage. Patient has ecchymosis swelling tenderness periorbital area of the right eye. NECK: Supple, trachea midline. No JVD or lymphadenopathy. No tenderness on palpation of the neck area. CARDIOVASCULAR: Regular rate and rhythm without murmurs, gallops, or rubs. RESPIRATORY: Breath sounds equal bilaterally. No accessory muscle use. GASTROINTESTINAL: Abdomen soft, non-tender, nondistended. MUSCULOSKELETAL: No cyanosis, or edema. BACK: Nontender without obvious deformity. No CVA tenderness. Neurologic exam normal. Course Initial Documented Vital Signs Temperature 98.3 F 07/16/18 08:41 Pulse Rate 62 07/16/18 08:41 Respiratory Rate 18 07/16/18 08:41 Blood Pressure 178/74 H 07/16/18 08:41 Last Documented Vital Signs Temperature 98.3 F 07/19/18 04:00 Pulse Rate 54 L 07/19/18 14:00 Respiratory Rate 25 H 07/19/18 14:00 Blood Pressure 164/73 H 07/19/18 14:00 Pulse Oximetry 87 L 07/19/18 09:00 Medical Decision Making MDM Narrative Medical decision making narrative: 77 years old female with facial injury. Patient has history of CAD on Plavix. Medical Screen Exam Complete: Yes Emergency Medical Condition: Yes Lab Data Lab results reviewed: Yes I reviewed the patient's lab results. Result diagrams: 07/16/18 09:00 07/17/18 03:02 Lab Results 07/16/18 07/16/18 07/16/18 Range/Units 09:00 09:00 09:00 WBC 5.3 (4.0-11.0) th/mm3 RBC 4.39 (4.00-5.30) mil/mm3 Hgb 9.3 L (11.6-15.3) gm/dL Hct 29.9 L (35.0-46.0) % MCV 68.0 L (80.0-100.0) fL MCH 21.2 L (27.0-34.0) pg MCHC 31.2 L (32.0-36.0) % RDW 20.0 H (11.6-17.2) % Plt Count 366 (150-450) th/mm3 MPV 7.6 (7.0-11.0) fL Neut % (Auto) 56.8 (16.0-70.0) % Lymph % (Auto) 33.2 (9.0-44.0) % [place] % (Auto) 7.6 (0.0-8.0) % Eos % (Auto) 1.0 (0.0-4.0) % Baso % (Auto) 1.4 (0.0-2.0) % Neut # (Auto) 3.0 (1.8-7.7) th/mm3 Lymph # (Auto) 1.8 (1.0-4.8) th/mm3 [place] # (Auto) 0.4 (0.0-0.9) th/mm3 Eos # (Auto) 0.1 (0.0-0.4) th/mm3 Baso # (Auto) 0.1 (0.0-0.2) th/mm3 WBC Differential . Differential Comment Auto diff final PT 11.6 (9.8-11.6) sec INR 1.1 Ratio APTT 22.9 L (24.3-30.1) sec Sodium 142 (136-145) meq/L Potassium 3.9 (3.5-5.1) meq/L Chloride 107 (98-107) meq/L Carbon Dioxide 28.7 (21.0-32.0) meq/L Anion Gap 6 (5-15) meq/L BUN 13 (7-18) mg/dL Creatinine 0.63 (0.50-1.00) mg/dL Estimated GFR Greater than 89 (>89) mL/min Random Glucose 98 (74-106) mg/dL Calcium 8.7 (8.5-10.1) mg/dL Phosphorus (2.5-4.9) mg/dL Magnesium (1.5-2.5) mg/dL Nasal Screen MRSA (PCR) (Negative) Bld Prod Order Comment 07/16/18 07/16/18 07/17/18 Range/Units 18:40 19:07 03:02 WBC (4.0-11.0) th/mm3 RBC (4.00-5.30) mil/mm3 Hgb (11.6-15.3) gm/dL Hct (35.0-46.0) % MCV (80.0-100.0) fL MCH (27.0-34.0) pg MCHC (32.0-36.0) % RDW (11.6-17.2) % Plt Count (150-450) th/mm3 MPV (7.0-11.0) fL Neut % (Auto) (16.0-70.0) % Lymph % (Auto) (9.0-44.0) % [place] % (Auto) (0.0-8.0) % Eos % (Auto) (0.0-4.0) % Baso % (Auto) (0.0-2.0) % Neut # (Auto) (1.8-7.7) th/mm3 Lymph # (Auto) (1.0-4.8) th/mm3 [place] # (Auto) (0.0-0.9) th/mm3 Eos # (Auto) (0.0-0.4) th/mm3 Baso # (Auto) (0.0-0.2) th/mm3 WBC Differential Differential Comment PT (9.8-11.6) sec INR Ratio APTT (24.3-30.1) sec Sodium 142 (136-145) meq/L Potassium 3.7 (3.5-5.1) meq/L Chloride 109 H (98-107) meq/L Carbon Dioxide 27.5 (21.0-32.0) meq/L Anion Gap 6 (5-15) meq/L BUN 10 (7-18) mg/dL Creatinine 0.47 L (0.50-1.00) mg/dL Estimated GFR Greater than 89 (>89) mL/min Random Glucose 70 L (74-106) mg/dL Calcium 8.3 L (8.5-10.1) mg/dL Phosphorus 2.8 (2.5-4.9) mg/dL Magnesium 2.1 (1.5-2.5) mg/dL Nasal Screen MRSA (PCR) Not detected (Negative) Bld Prod Order Comment Imaging Data Attestation: I personally reviewed and interpreted this imaging study as follows : Radiologist's impression: Head CT 07/16/18 00:00 CONCLUSION: 1. Evolving small right-sided subdural hematoma measuring 5 mm in comparison to 6 mm in prior exam. 2. Stable left posterior parietal high convexity extra-axial hemorrhage measuring up to 1.2 cm. Again, this is likely subdural although epidural hemorrhage cannot be excluded given the configuration. 3. Slightly more prominence focal hemorrhage in the posterior right parietal high convexities now measuring 8 mm in comparison to 5 mm on prior exam. 4. Evolving right frontal high convexity hemorrhagic contusion. . Chest X-Ray 07/16/18 08:46 CONCLUSION: Stable appearance with no acute cardiopulmonary disease. The ribs appear intact. Face CT 07/16/18 08:48 CONCLUSION: 1. No visualized facial fracture. 2. Intracranial hemorrhage again visualized. Please see head CT report for further details. Head CT 07/16/18 08:48 CONCLUSION: 1. Small to moderate size right subdural hematoma. 2. Second extra-axial area of hemorrhage along the high left parietal lobe which likely is subdural however an epidural hemorrhage could have this appearance as well. 3. Small intraparenchymal hemorrhage in the right frontal lobe. These findings were called to Dr. Umaña in the emergency room immediately after the study was completed. . Head CT 07/17/18 05:00 CONCLUSION: Bilateral areas of hemorrhage as described above. These are unchanged. . Discharge Plan Discharge Disposition Patient Disposition: 03 Discharge to SNF Discharge Condition Condition: Good Discharge Order Discharge Orders: Discharge Order (Routine); Ordered 07/19/18 Ordered By: Avery Langston Neurosurgery Clear for Discharge (Routine); Ordered 07/19/18 Ordered By: Sarah Rodriguez Discharge Details Discharge Comment: No aspirin, plavis, or anticoagulants for 4 weeks. Physicians Team ED Provider: Ermias Umaña Primary Care Provider: Luke Sanchez Attending Provider: Avery Langston Other Providers: Jorge Block ; [facility] & [facility],Agency Status ED Status: Left Department Discharge Information Discharge Date/Time: 07/16/18 12:53
[2018-07-16] MEDS ORDERED: Acetaminophen 325 MG Tablet PO ONE (09:26)
[2018-07-16 09:28] LABS: Anion Gap 6 meq/L (5-15); Blood Urea Nitrogen 13 mg/dL (7-18); Calcium 8.7 mg/dL (8.5-10.1); Carbon Dioxide 28.7 meq/L (21.0-32.0); Chloride 107 meq/L (98-107); Glomerular Filtration Rate Greater Than 89 mL/min (>89); Glucose,Random 98 mg/dL (74-106); Potassium 3.9 meq/L (3.5-5.1); Sodium 142 meq/L (136-145)
[2018-07-16 09:30] LABS: Baso # (Auto) 0.1 th/mm3 (0.0-0.2); Baso % (Auto) 1.4 % (0.0-2.0); Eos # (Auto) 0.1 th/mm3 (0.0-0.4); Hematocrit 29.9 % (35.0-46.0); Hemoglobin 9.3 gm/dL (11.6-15.3); Lymph # (Auto) 1.8 th/mm3 (1.0-4.8); Lymph % (Auto) 33.2 % (9.0-44.0); Mean Corpuscular HGB Conc 31.2 % (32.0-36.0); Mean Corpuscular Hemoglobin 21.2 pg (27.0-34.0); Mean Platelet Volume 7.6 fL (7.0-11.0); Mono # (Auto) 0.4 th/mm3 (0.0-0.9); Mono % (Auto) 7.6 % (0.0-8.0); Neut % (Auto) 56.8 % (16.0-70.0); Platelet Count 366 th/mm3 (150-450); Red Blood Count 4.39 mil/mm3 (4.00-5.30); White Blood Count 5.3 th/mm3 (4.0-11.0)
[2018-07-16 09:31] LABS: Activated Partial Thrombo Time 22.9 sec (24.3-30.1); INR 1.1 Ratio; Prothrombin Time 11.6 sec (9.8-11.6)
--- NOTE | 2018-07-16 10:35 | XR ---
EXAM DATE: 07/16/2018 8:46 AM EDT AGE/SEX: 77 years / Female INDICATIONS: Patient fell, Complains of chest pain CLINICAL DATA: This is the patient's initial encounter. Patient reports that signs and symptoms have been present for 1 day and indicates a pain score of 5/10. MEDICAL/SURGICAL HISTORY: . Diabetes. Hypertension. Emphysema. CAD, Heart attack, GERD, COPD, S moker . Coronary artery stent. COMPARISON: [facility], CHEST SINGLE AP, 03/13/2018. . FINDINGS: A single AP view of the chest demonstrates the lungs to be symmetrically hyperinflated without eviden ce of mass, infiltrate or effusion. Atherosclerotic changes are present in the aorta. The cardiomedia stinal contours are unremarkable. Osseous structures are intact. CONCLUSION: Stable appearance with no acute cardiopulmonary disease. The ribs appear intact. Electronically signed by: Dejuan Sweeney MD 07/16/2018 10:34 AM EDT
--- NOTE | 2018-07-16 10:43 | CT ---
EXAM DATE: 07/16/2018 10:04 AM EDT AGE/SEX: 77 years / Female INDICATIONS: Trauma, fall from bed today. Patient complains of headaches and is on Plavix. CLINICAL DATA: This is the patient's initial encounter. Patient reports that signs and symptoms have been present for 1 day and indicates a pain score of 7/10. MEDICAL/SURGICAL HISTORY: Anemia. Hypertension. Dementia. None. RADIATION DOSE: 29.58 CTDI (mGy) COMPARISON: [facility], CT BRAIN W/O CONTRAST, 03/08/2018. . TECHNIQUE: CT of the head without contrast. Using automated exposure control and adjustment of the mA and/or kV according to patient size, radiation dose was kept as low as reasonably achievable to ob tain optimal diagnostic quality images. DICOM format image data is available electronically for revi ew and comparison. FINDINGS: There is a new small to moderate size right subdural hematoma extending along the right frontal and p arietal convexities. This measures up to approximately 6 mm in transverse diameter. There is an adjac ent more punctate collection measuring up to 4 x 5 mm on axial image #18. There is a second left-sided high density acute hemorrhage over the high left parietal lobe measuring up to 1.4 cm in greatest transverse diameter. There is a small intraparenchymal hemorrhage in the ri ght frontal lobe on axial image #10 measuring up to 3 mm. There is no midline shift. The posterior fossa and brainstem remain unremarkable. There is mild atrop hic changes. CONCLUSION: 1. Small to moderate size right subdural hematoma. 2. Second extra-axial area of hemorrhage along the high left parietal lobe which likely is subdural however an epidural hemorrhage could have this appearance as well. 3. Small intraparenchymal hemorrhage in the right frontal lobe. These findings were called to Dr. Umaña in the emergency room immediately after the study was complete d. . Electronically signed by: Dejuan Sweeney MD 07/16/2018 10:42 AM EDT
--- NOTE | 2018-07-16 10:46 | CT ---
EXAM DATE: 07/16/2018 10:04 AM EDT AGE/SEX: 77 years / Female INDICATIONS: Trauma, fall from bed today. Right eye pain and swelling. Cranial hemorrhage noted on h ead CT. CLINICAL DATA: This is the patient's initial encounter. Patient reports that signs and symptoms have been present for 1 day and indicates a pain score of 7/10. MEDICAL/SURGICAL HISTORY: Anemia. Dementia. Hypertension. None. RADIATION DOSE: 49.52 CTDI (mGy) ; Patient motion COMPARISON: [facility] [place] [facility] [place], [place]/16/2018. . TECHNIQUE: Contiguous images in the axial and coronal planes were obtained using helical multirow de tector technique. Using automated exposure control and adjustment of the mA and/or kV according to p atient size, radiation dose was kept as low as reasonably achievable to obtain optimal diagnostic fabi lity images. DICOM format image data is available electronically for review and comparison. FINDINGS: Orbits: The orbital and infraorbital osseous structures are intact. The retroconal structures have a normal configuration. No radiopaque foreign bodies are seen. Nasal Bone: The nasal bone and maxillary spine are intact. Zygomatic Arches: Symmetric without evidence of fracture. Sinuses: The maxillary, ethmoid, and frontal sinuses are intact. No air-fluid levels seen. Nasal Cavity: The nasal septum is intact and midline. The lacrimal ducts are intact. Soft Tissues: No radiopaque foreign bodies seen. No soft-tissue swelling is seen. Intracranial: No intracranial air seen. Cribriform Plate: Grossly intact. The known intracranial hemorrhage is again visualized. Please see head CT report for further details. CONCLUSION: 1. No visualized facial fracture. 2. Intracranial hemorrhage again visualized. Please see head CT report for further details. Electronically signed by: Dejuan Sweeney MD 07/16/2018 10:44 AM EDT
[2018-07-16] MEDS ORDERED: Bisacodyl 10 MG Supp RECTAL PRN (11:32)
[2018-07-16] MEDS ORDERED: Potassium Chlor 40 mEq Premix 40 MEQ/100 ML PIGGYBACK IV.SIG PRN ×2 (11:43)
[2018-07-16] MEDS ORDERED: Potassium Phosphate Inj 30 MMOL in Sodium Chlor 0.9% Inj 250 ML IV.SIG PRN (11:43)
[2018-07-16] MEDS ORDERED: Magnesium Oxide 400 MG Tablet PO PRN (11:43)
[2018-07-16] MEDS ORDERED: Magnesium Sulfate Inj 2 GM in Sodium Chlor 0.9% Inj 96 ML IV.SIG PRN (11:43)
[2018-07-16] MEDS ORDERED: Potassium Chlor 20 mEq Premix 20 MEQ/100 ML PIGGYBACK IV.SIG PRN ×2 (11:43)
[2018-07-16] MEDS ORDERED: Magnesium Sulfate Inj 4 GM in Sodium Chlor 0.9% Inj 92 ML IV.SIG PRN (11:43)
[2018-07-16] MEDS ORDERED: Sodium Phosphate Inj 30 MMOL in Sodium Chlor 0.9% Inj 250 ML IV.SIG PRN (11:43)
[2018-07-16] MEDS ORDERED: Potassium Phosphate 500 MG Soluble Tablet PO PRN ×2 (11:43)
[2018-07-16] MEDS ORDERED: Potassium Chloride 25 MEQ Effervescent Tablet PO PRN (11:43)
[2018-07-16] MEDS ORDERED: Labetalol HCl Inj 100 MG/20 ML Vial IV.PUSH PRN (11:45)
--- NOTE | 2018-07-16 13:05 | P.CONNS ---
History of Present Illness Primary Care Provider: Luke Sanchez MD History of Present Illness: 77yoF who fell in long term overnight, on plavix for TIA. 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 Answers appropriately. Head CT 9AM showing right SDH, left EDH, no midline shift. She also has a bruised swollen right orbit but vision is intact and pupils symmetrically react. [facility] - History History Provided By: Patient - Medical History Medical History: Medical History (Last Updated 07/16/18 @ 09:01 by Maddy Parker) Anemia Anxiety COPD (chronic obstructive pulmonary disease) Chronic GERD Dementia GI bleed HTN (hypertension) - Tobacco History Second Hand Smoke Exposure: No Smoking Status: Never smoker - Alcohol History How Often Do You Have a Drink Containing Alcohol: Never - Immunization History Tetanus Immunization: Unsure Medications and Allergies Active Medications: Active Medications Acetaminophen (Tylenol) 650 mg PO Q6H PRN PRN Reason: PAIN 1-10 AND/OR FEVER >101F Al Hydroxide/Mg Hydroxide (Milk Of Rayray Coulter) 30 ml PO Q12H PRN PRN Reason: Mild Constipation Alprazolam (Xanax) 0.5 mg PO BID JANEE Bisacodyl (Dulcolax Supp) 10 mg RECTAL DAILY PRN PRN Reason: SEVERE CONSITIPATION Chlorhexidine Gluconate (Chlorhexidine 2% Cloth) 3 pack TOPICAL DAILY@0400 JANEE Stop: 07/22/18 03:59 Chlorhexidine Gluconate (Chlorhexidine 2% Cloth) 3 pack TOPICAL DAILY@0400 PRN PRN Reason: Extra cloth needed Stop: 07/22/18 03:59 Donepezil HCl (Aricept) 10 mg PO DAILY JANEE Escitalopram Oxalate (Lexapro) 10 mg PO DAILY JANEE Sodium Chloride (Ns Inj) 1,000 mls @ 70 mls/hr IV.CONT .[id number] JANEE Magnesium Sulfate 4 gm/ Sodium (Chloride) 100 mls @ 50 mls/hr IV.SIG UNSCH PRN PRN Reason: For Magnesium 0.9 - 1.1 mg/dL Magnesium Sulfate 2 gm/ Sodium (Chloride) 100 mls @ 50 mls/hr IV.SIG UNSCH PRN PRN Reason: For Magnesium 1.2 - 1.6 mg/dL Potassium Chloride (Kcl 40 Meq Premix Inj) 40 meq in 100 mls @ 25 mls/hr IV.SIG Q2H PRN PRN Reason: For Potassium 2.8 - 3.2 mEq/L Potassium Chloride (Kcl 20 Meq Premix Inj) 20 meq in 100 mls @ 50 mls/hr IV.SIG Q2H PRN PRN Reason: For Potassium 3.3 - 3.5 mEq/L Potassium Chloride (Kcl 40 Meq Premix Inj) 40 meq in 100 mls @ 25 mls/hr IV.SIG UNSCH PRN PRN Reason: For Potassium 3.3 - 3.5 mEq/L Potassium Chloride (Kcl 20 Meq Premix Inj) 20 meq in 100 mls @ 50 mls/hr IV.SIG Q2H PRN PRN Reason: For Potassium 2.8 - 3.2 mEq/L Potassium Phosphate 30 mmol/ (Sodium Chloride) 260 mls @ 42 mls/hr IV.SIG UNSCH PRN PRN Reason: SEE LABEL COMMENTS Sodium Phosphate 30 mmol/ (Sodium Chloride) 260 mls @ 42 mls/hr IV.SIG UNSCH PRN PRN Reason: For Phosphorus < 2.5 mg/dL Labetalol HCl (Trandate Inj) 20 mg IV.PUSH Q2H PRN PRN Reason: SBP > 160 Lactulose (Lactulose Liq) 30 ml PO DAILY PRN PRN Reason: SEVERE CONSITIPATION Levothyroxine Sodium (Synthroid) 112 mcg PO DAILY@0600 JANEE Loperamide HCl (Imodium) 2 mg PO BID JANEE Magnesium Oxide (Mag-Ox) 800 mg PO UNSCH PRN PRN Reason: For Magnesium 1.2 - 1.6 mg/dL Metoprolol Tartrate (Lopressor) 12.5 mg PO BID JANEE Miscellaneous (Pill Splitter) 1 each OTHER UNSCH PRN PRN Reason: SEE LABEL COMMENTS Ondansetron HCl (Zofran Inj) 4 mg IV.PUSH Q6H PRN PRN Reason: NAUSEA OR VOMITING Pantoprazole Sodium (Protonix) 40 mg PO DAILY JANEE Potassium Bicarb/Potassium Chloride (K-Lyte Cl Eff) 50 meq PO UNSCH PRN PRN Reason: For Potassium 3.3 - 3.5 mEq/L Potassium Phosphate (K-Phos Original) 2,000 mg PO Q4H PRN PRN Reason: Phosphorus Less Than 2.5 mg/dL Potassium Phosphate (K-Phos Original) 2,000 mg PO UNSCH PRN PRN Reason: SEE LABEL COMMENTS Sennosides (Senokot) 17.2 mg PO Q12H PRN PRN Reason: Moderate Constipation Sodium Chloride (Ns Flush) 2 ml IV.FLUSH BID JANEE Sodium Chloride (Ns Flush) 2 ml IV.FLUSH PRN PRN PRN Reason: FLUSH AFTER USING IV ACCESS Allergies Allergy/AdvReac Type Severity Reaction Status Date / Time Sulfa (Sulfonamide Allergy Severe FACIAL/MOUTH Verified 07/16/18 09:24 Antibiotics) SWELLING aspirin Allergy Unknown Anaphylaxis Verified 07/16/18 09:24 Home Medications Medication Instructions Recorded Confirmed Type alprazolam 0.5 mg PO BID 07/16/18 07/16/18 History clopidogrel [Plavix] 75 mg PO DAILY 07/16/18 07/16/18 History donepezil [Aricept] 10 mg PO DAILY 07/16/18 07/16/18 History escitalopram oxalate [Lexapro] 10 mg PO DAILY 07/16/18 07/16/18 History levothyroxine 112 mcg PO DAILY 07/16/18 07/16/18 History loperamide 2 mg PO BID 07/16/18 07/16/18 History metoprolol tartrate 12.5 mg PO BID 07/16/18 07/16/18 History oxycodone-acetaminophen 1 tab PO Q4-6H PRN 07/16/18 07/16/18 History pantoprazole 40 mg PO DAILY 07/16/18 07/16/18 History Exam Vital signs: Vital Signs 07/16/18 08:41 Temperature 98.3 F Pulse Rate 62 Respiratory Rate 18 Blood Pressure 178/74 H Narrative: A&O x 3, confused, demented Motor 5/5 UE/LE Left eye swollen bruised, but vision intact perrl Results - Laboratory Findings CBC and BMP: 07/16/18 09:00 07/16/18 09:00 Abnormal lab findings: Abnormal Labs 07/16/18 07/16/18 09:00 09:00 Hgb 9.3 L Hct 29.9 L MCV 68.0 L MCH 21.2 L MCHC 31.2 L RDW 20.0 H APTT 22.9 L Assessment and Plan - Plan 77yoF on plavix who fell in long term with R SDH and L EDH, no midline shift , A&O x 3. Plan: Repeat CT now, then in AM given plavix. (Hold plavix for now). One of these may turn chronic possibly requiring burrhole drainage, but at this point, no surgery anticipated. Will advance diet after establish stability of repeat scan.
[2018-07-16] MEDS: Sod Chloride 0.9% Inj 1,000 ML IV.CONT SCH (13:27)
--- NOTE | 2018-07-16 13:39 | P.HPCC ---
History of Present Illness Service: Critical care medicine Primary Care Physician: Luke Sanchez MD Chief Complaint: Fall History of Present Illness: This pleasant right-handed 77-year-old woman fell earlier today and received blunt trauma to the right side of her face and head. There was no loss of consciousness by history, no seizures or other abnormal behavior. She arrives with considerable swelling and ecchymosis surrounding the right orbit. CAT scan of the head in the emergency department reveals a small right subdural hematoma without mass-effect. There is a small right contusion about 5 mm in size. More worrisome is a 1.4 cm left extra-axial collection which appears to be tented in the fashion of an epidural bleed. The woman has chronic dementia but is pretty sharp. Her speech is clear and her memory for many things is accurate. Her care is complicated by antiplatelet therapy using Plavix, rendering her an increased risk for continued hemorrhage. - Diagnosis (1) Traumatic subdural hematoma (2) Traumatic epidural hematoma (3) Intraparenchymal hematoma of brain due to trauma Inpatient Certification: I certify that the inpatient services were ordered in accordance with Medicare regulations governing the order. This includes certification that hospital inpatient services are reasonable and necessary and in the case of services not specified as inpatient-only under 42 CFR 419.22(n), that they are appropriately provided as inpatient services in accordance to with the 2-midnight benchmark under 43 CFR 412.3(e) Estimated Total Length of Stay (Days): 3 Plans for Post Hospital Care: SNF Review of Systems No loss of consciousness, seizures, vomiting. PMF - History History Provided By: Patient - Medical History Medical History: Medical History (Last Updated 07/16/18 @ 09:01 by Maddy Parker) Anemia Anxiety COPD (chronic obstructive pulmonary disease) Chronic GERD Dementia GI bleed HTN (hypertension) - Tobacco History Second Hand Smoke Exposure: No Smoking Status: Never smoker - Alcohol History How Often Do You Have a Drink Containing Alcohol: Never - Immunization History Tetanus Immunization: Unsure Medications and Allergies Active Medications: Active Medications Acetaminophen (Tylenol) 650 mg PO Q6H PRN PRN Reason: PAIN 1-10 AND/OR FEVER >101F Al Hydroxide/Mg Hydroxide (Milk Of Magnesia Liq) 30 ml PO Q12H PRN PRN Reason: Mild Constipation Alprazolam (Xanax) 0.5 mg PO BID JANEE Bisacodyl (Dulcolax Supp) 10 mg RECTAL DAILY PRN PRN Reason: SEVERE CONSITIPATION Chlorhexidine Gluconate (Chlorhexidine 2% Cloth) 3 pack TOPICAL DAILY@0400 JANEE Stop: 07/22/18 03:59 Chlorhexidine Gluconate (Chlorhexidine 2% Cloth) 3 pack TOPICAL DAILY@0400 PRN PRN Reason: Extra cloth needed Stop: 07/22/18 03:59 Donepezil HCl (Aricept) 10 mg PO DAILY JANEE Escitalopram Oxalate (Lexapro) 10 mg PO DAILY JANEE Sodium Chloride (Ns Inj) 1,000 mls @ 70 mls/hr IV.CONT .[id number] JANEE Magnesium Sulfate 4 gm/ Sodium (Chloride) 100 mls @ 50 mls/hr IV.SIG UNSCH PRN PRN Reason: For Magnesium 0.9 - 1.1 mg/dL Magnesium Sulfate 2 gm/ Sodium (Chloride) 100 mls @ 50 mls/hr IV.SIG UNSCH PRN PRN Reason: For Magnesium 1.2 - 1.6 mg/dL Potassium Chloride (Kcl 40 Meq Premix Inj) 40 meq in 100 mls @ 25 mls/hr IV.SIG Q2H PRN PRN Reason: For Potassium 2.8 - 3.2 mEq/L Potassium Chloride (Kcl 20 Meq Premix Inj) 20 meq in 100 mls @ 50 mls/hr IV.SIG Q2H PRN PRN Reason: For Potassium 3.3 - 3.5 mEq/L Potassium Chloride (Kcl 40 Meq Premix Inj) 40 meq in 100 mls @ 25 mls/hr IV.SIG UNSCH PRN PRN Reason: For Potassium 3.3 - 3.5 mEq/L Potassium Chloride (Kcl 20 Meq Premix Inj) 20 meq in 100 mls @ 50 mls/hr IV.SIG Q2H PRN PRN Reason: For Potassium 2.8 - 3.2 mEq/L Potassium Phosphate 30 mmol/ (Sodium Chloride) 260 mls @ 42 mls/hr IV.SIG UNSCH PRN PRN Reason: SEE LABEL COMMENTS Sodium Phosphate 30 mmol/ (Sodium Chloride) 260 mls @ 42 mls/hr IV.SIG UNSCH PRN PRN Reason: For Phosphorus < 2.5 mg/dL Labetalol HCl (Trandate Inj) 20 mg IV.PUSH Q2H PRN PRN Reason: SBP > 160 Lactulose (Lactulose Liq) 30 ml PO DAILY PRN PRN Reason: SEVERE CONSITIPATION Levothyroxine Sodium (Synthroid) 112 mcg PO DAILY@0600 JANEE Loperamide HCl (Imodium) 2 mg PO BID JANEE Magnesium Oxide (Mag-Ox) 800 mg PO UNSCH PRN PRN Reason: For Magnesium 1.2 - 1.6 mg/dL Metoprolol Tartrate (Lopressor) 12.5 mg PO BID JANEE Miscellaneous (Pill Splitter) 1 each OTHER UNSCH PRN PRN Reason: SEE LABEL COMMENTS Ondansetron HCl (Zofran Inj) 4 mg IV.PUSH Q6H PRN PRN Reason: NAUSEA OR VOMITING Pantoprazole Sodium (Protonix) 40 mg PO DAILY JANEE Potassium Bicarb/Potassium Chloride (K-Lyte Cl Eff) 50 meq PO UNSCH PRN PRN Reason: For Potassium 3.3 - 3.5 mEq/L Potassium Phosphate (K-Phos Original) 2,000 mg PO Q4H PRN PRN Reason: Phosphorus Less Than 2.5 mg/dL Potassium Phosphate (K-Phos Original) 2,000 mg PO UNSCH PRN PRN Reason: SEE LABEL COMMENTS Sennosides (Senokot) 17.2 mg PO Q12H PRN PRN Reason: Moderate Constipation Sodium Chloride (Ns Flush) 2 ml IV.FLUSH BID JANEE Sodium Chloride (Ns Flush) 2 ml IV.FLUSH PRN PRN PRN Reason: FLUSH AFTER USING IV ACCESS Allergies Allergy/AdvReac Type Severity Reaction Status Date / Time Sulfa (Sulfonamide Allergy Severe FACIAL/MOUTH Verified 07/16/18 09:24 Antibiotics) SWELLING aspirin Allergy Unknown Anaphylaxis Verified 07/16/18 09:24 Home Medications Medication Instructions Recorded Confirmed Type alprazolam 0.5 mg PO BID 07/16/18 07/16/18 History clopidogrel [Plavix] 75 mg PO DAILY 07/16/18 07/16/18 History donepezil [Aricept] 10 mg PO DAILY 07/16/18 07/16/18 History escitalopram oxalate [Lexapro] 10 mg PO DAILY 07/16/18 07/16/18 History levothyroxine 112 mcg PO DAILY 07/16/18 07/16/18 History loperamide 2 mg PO BID 07/16/18 07/16/18 History metoprolol tartrate 12.5 mg PO BID 07/16/18 07/16/18 History oxycodone-acetaminophen 1 tab PO Q4-6H PRN 07/16/18 07/16/18 History pantoprazole 40 mg PO DAILY 07/16/18 07/16/18 History Results - Labs CBC & Chem 7: 07/16/18 09:00 07/16/18 09:00 Labs: Short CBC 07/16/18 Range/Units 09:00 WBC 5.3 (4.0-11.0) th/mm3 Hgb 9.3 L (11.6-15.3) gm/dL Hct 29.9 L (35.0-46.0) % Plt Count 366 (150-450) th/mm3 BMP 07/16/18 09:00 Sodium 142 Potassium 3.9 Chloride 107 Carbon Dioxide 28.7 BUN 13 Creatinine 0.63 Calcium 8.7 - Imaging Impressions Chest X-Ray 07/16/18 08:46 CONCLUSION: Stable appearance with no acute cardiopulmonary disease. The ribs appear intact. Face CT 07/16/18 08:48 CONCLUSION: 1. No visualized facial fracture. 2. Intracranial hemorrhage again visualized. Please see head CT report for further details. Head CT 07/16/18 08:48 CONCLUSION: 1. Small to moderate size right subdural hematoma. 2. Second extra-axial area of hemorrhage along the high left parietal lobe which likely is subdural however an epidural hemorrhage could have this appearance as well. 3. Small intraparenchymal hemorrhage in the right frontal lobe. These findings were called to Dr. Umaña in the emergency room immediately after the study was completed. . Exam Vital signs: Vital Signs 07/16/18 08:41 Temperature 98.3 F Pulse Rate 62 Respiratory Rate 18 Blood Pressure 178/74 H Narrative: General: [place], conversant elderly woman Head: Periorbital and lid edema right side with ecchymosis extending down to the level of the mandible. Neck: Supple, nontender, no step-off. Airway widely patent, no obstructive noises. Lungs: Clear, no wheezes or crackles, rest comfortable respiratory pattern. Heart: Normal S1, S2, no murmur or rub. Neck veins are flat Abdomen: Nondistended, soft, no guarding, bowel sounds present. Extremities: Warm, well-perfused, no peripheral edema. Neuro: Pupillary response and extraocular movements intact. Smile, grimace, jaw clench symmetrical. Sternocleidomastoid symmetrical. Tongue protrusion midline. Shoulder shrug symmetrical. Conversant, speech clear. Moves 4 limbs to command. DTRs 3+ patella bilaterally. Toes downgoing bilateral. No clonus. Mild memory problems. Caprini VTE Risk Assessment Caprini VTE Risk Assessment: Moderate/High Risk (score >= 2) VTE Pharmacological Exception Reason: Hemorrhage Caprini Risk Assessment Model: Point Value = 1 Point Value = 2 Point Value = 3 Point Value = 5 Age 41-60 Minor surgery BMI > 25 kg/m2 Swollen legs Varicose veins or History of unexplained or recurrent spontaneous Oral contraceptives or hormone replacement Sepsis (< 1 month) Serious lung disease, including pneumonia (< 1 month) Abnormal pulmonary function Acute myocardial infarction Congestive heart failure (< 1 month) History of inflammatory bowel disease Medical patient at bed rest Age 61-74 Arthroscopic surgery Major open surgery (> 45 min) Laparoscopic surgery (> 45 min) Malignancy Confined to bed (> 72 hours) Immobilizing plaster cast Central venous access Age >= 75 History of VTE Family history of VTE Factor V Leiden Prothrombin [id number] Lupus anticoagulant Anticardiolipin antibodies Elevated serum homocysteine Heparin-induced thrombocytopenia Other congenital or acquired thrombophilia Stroke (< 1 month) Elective arthroplasty Hip, pelvis, or leg fracture Acute spinal cord injury (< 1 month) Prophylaxis Regimen: Total Risk Factor Score Risk Level Prophylaxis Regimen 0-1 Low Early ambulation 2 Moderate Order ONE of the following: *Sequential Compression Device (SCD) *Heparin 5000 units SQ BID 3-4 Higher Order ONE of the following medications: *Heparin 5000 units SQ TID *Enoxaparin/Lovenox 40 mg SQ daily (WT < 150 kg, CrCl > 30 mL/min) *Enoxaparin/Lovenox 30 mg SQ daily (WT < 150 kg, CrCl > 10-29 mL/min) *Enoxaparin/Lovenox 30 mg SQ BID (WT < 150 kg, CrCl > 30 mL/min) AND/OR *Sequential Compression Device (SCD) 5 or more Highest Order ONE of the following medications: *Heparin 5000 units SQ TID (Preferred with Epidurals) *Enoxaparin/Lovenox 40 mg SQ daily (WT < 150 kg, CrCl > 30 mL/min) *Enoxaparin/Lovenox 30 mg SQ daily (WT < 150 kg, CrCl > 10-29 mL/min) *Enoxaparin/Lovenox 30 mg SQ BID (WT < 150 kg, CrCl > 30 mL/min) AND *Sequential Compression Device (SCD) Assessment and Plan - Problem List (1) Traumatic subdural hematoma Code(s): S06.5X9A - Traumatic subdural hemorrhage with loss of consciousness of unspecified duration, initial encounter Status: Acute (2) Traumatic epidural hematoma Code(s): S06.4X9A - Epidural hemorrhage with loss of consciousness of unspecified duration, initial encounter Status: Acute (3) Intraparenchymal hematoma of brain due to trauma Code(s): S06.369A - Traumatic hemorrhage of cerebrum, unspecified, with loss of consciousness of unspecified duration, initial encounter Status: Acute - Assessment and Plan Plan: Plan: Neuro -serial neuro checks -Maintain systolic blood pressure less than 160 -Repeat CAT scan tomorrow a.m., sooner for any neurologic change. -Isotonic fluids only -Consider seizure prophylaxis with Keppra -Hold all antiplatelet therapy -No chemical DVT prophylaxis Respiratory -Bronchodilators as needed wheezing -History of COPD Cardiovascular -Avoid hypertension in view of possible epidural source for left-sided bleed -Blood pressure in the range of 110-140 probably ideal GI -N.p.o. -Meds with sip of water okay -Straight cath as needed bladder volume greater than 500 Endocrinology -Serial glucose determination, sliding scale insulin as needed ID -Culture for fevers -No infectious source suspected at this time Heme -Hemoglobin in a.m. -May need platelet transfusion if bleed size increases, spite total platelet count Prophylaxis -SCDs -Chemical DVT prophylaxis contraindicated -Continue home medication Protonix Overall impression: This woman is critically ill having sustained a moderate size left epidural hematoma from a fall. Her care is considerably complicated by her present use of Plavix, the efficacy of which is well documented by her spreading facial ecchymosis. We will continue to follow her closely with serial neurologic radiographic imaging. Critical care time 45 minutes aside from procedures. (1) Traumatic subdural hematoma Qualifiers: Encounter type: initial encounter Loss of consciousness presence/duration: without LOC Qualified Code(s): S06.5X0A - Traumatic subdural hemorrhage without loss of consciousness, initial encounter (2) Traumatic epidural hematoma Qualifiers: Encounter type: initial encounter Loss of consciousness presence/duration: without LOC Qualified Code(s): S06.4X0A - Epidural hemorrhage without loss of consciousness, initial encounter (3) Intraparenchymal hematoma of brain due to trauma Qualifiers: Encounter type: initial encounter Laterality: right Loss of consciousness presence/duration: without LOC Qualified Code(s): S06.340A - Traumatic hemorrhage of right cerebrum without loss of consciousness, initial encounter
[2018-07-16] MEDS ORDERED: Escitalopram 10 MG Tablet PO ONE (14:45)
[2018-07-16] MEDS ORDERED: ALPRAZolam 0.5 MG Tablet PO ONE (14:45)
[2018-07-16] MEDS ORDERED: Atropine Inj 1 MG/10 ML Syringe ONE (15:09)
--- NOTE | 2018-07-16 15:52 | CT ---
EXAM DATE: 07/16/2018 3:27 PM EDT AGE/SEX: 77 years / Female INDICATIONS: Intracerebral hemorrhage CLINICAL DATA: This is the patient's subsequent encounter. Patient reports that signs and symptoms h ave been present for 1 day and indicates a pain score of 6/10. MEDICAL/SURGICAL HISTORY: Gastroesophageal reflux disease. Chronic obstructive pulmonary disease. Dementia. Hypertension None. RADIATION DOSE: 41.10 CTDI (mGy) COMPARISON: [facility] – [place], [place] HEAD W/O CONTRAST, 07/16/2018. . TECHNIQUE: CT of the head without contrast. Using automated exposure control and adjustment of the mA and/or kV according to patient size, radiation dose was kept as low as reasonably achievable to ob tain optimal diagnostic quality images. DICOM format image data is available electronically for revi ew and comparison. FINDINGS: There is an evolving right subdural hematoma now measuring up to 5 mm improved from 6 mm on prior exa m. There is a stable left posterior parietal high convexity extra-axial hemorrhage. Minimal focal hem orrhage adjacent to the cephalad aspect of the subdural hematoma is slightly enlarged measuring 8 x 8 mm in comparison to 5 x 5 mm on prior exam. Interval interval evolution of right frontal hemorrhagic contusion, now less apparent. No new intercurrent hemorrhage. Ventricles are midline and stable in s ize. Brainstem and cerebellum are intact. Remainder of the exam is unchanged. CONCLUSION: 1. Evolving small right-sided subdural hematoma measuring 5 mm in comparison to 6 mm in prior exam. 2. Stable left posterior parietal high convexity extra-axial hemorrhage measuring up to 1.2 cm. Agai n, this is likely subdural although epidural hemorrhage cannot be excluded given the configuration. 3. Slightly more prominence focal hemorrhage in the posterior right parietal high convexities now me asuring 8 mm in comparison to 5 mm on prior exam. 4. Evolving right frontal high convexity hemorrhagic contusion. . Electronically signed by: Torrey Diaz MD 07/16/2018 3:51 PM EDT
[2018-07-16] MEDS: ALPRAZolam 0.5 MG Tablet PO SCH (20:25)
[2018-07-16] MEDS: Metoprolol Tartrate 25 MG Tablet PO SCH (20:26)
[2018-07-16] MEDS: Loperamide 2 MG Capsule PO SCH (20:26)
--- NOTE | 2018-07-16 21:59 | ECG ---
Date Performed: 07/16/2018 Time Performed: 08:45:10 PTAGE: 77 years EKG: SINUS BRADYCARDIA MODERATE T-WAVE ABNORMALITY ABNORMAL ECG PREVIOUS TRACING : 03/09/2018 12.11 Since the previous tracing, no significant change noted DOCTOR: Dena Gomez Interpretating Date/Time 07/16/2018 21:58:04
[2018-07-17] MEDS: Acetaminophen 325 MG Tablet PO PRN ×2 (00:09→16:35)
[2018-07-17] MEDS ORDERED: Chlorhexidine Gluconate 2% 1 Pack (2 Cloths) TOPICAL PRN (04:00)
[2018-07-17 04:34] LABS: Anion Gap 6 meq/L (5-15); Blood Urea Nitrogen 10 mg/dL (7-18); Calcium 8.3 mg/dL (8.5-10.1); Carbon Dioxide 27.5 meq/L (21.0-32.0); Chloride 109 meq/L (98-107); Glomerular Filtration Rate Greater Than 89 mL/min (>89); Glucose,Random 70 mg/dL (74-106); Magnesium 2.1 mg/dL (1.5-2.5); Phosphorus 2.8 mg/dL (2.5-4.9); Potassium 3.7 meq/L (3.5-5.1); Sodium 142 meq/L (136-145)
--- NOTE | 2018-07-17 06:26 | CT ---
EXAM DATE: 07/17/2018 5:19 AM EDT AGE/SEX: 77 years / Female INDICATIONS: Follow up hemorrhage. CLINICAL DATA: This is the patient's subsequent encounter. Patient reports that signs and symptoms h ave been present for 2 days and indicates a pain score of 0/10. MEDICAL/SURGICAL HISTORY: Dementia. Hypertension. Chronic obstructive pulmonary disease. GERD N one. RADIATION DOSE: 56.35 CTDI (mGy) COMPARISON: [facility] – [place], CT HEAD W/O CONTRAST, 07/16/2018. . TECHNIQUE: CT of the head without contrast. Using automated exposure control and adjustment of the mA and/or kV according to patient size, radiation dose was kept as low as reasonably achievable to ob tain optimal diagnostic quality images. DICOM format image data is available electronically for revi ew and comparison. FINDINGS: Cerebrum: There continues to extra-axial hemorrhage seen at the posterior lateral left parietal lobe measuring 3.7 x 1.5 cm. Is unchanged. There is a thinner, 3 mm, older subdural hemorrhage seen along the more inferior left parietal and temporal regions. There is an acute on chronic subdural hemorrhag e seen over the right convexity measuring up to 5 mm. There is some component of more acute hemorrhag e within this posteriorly. This is seen over the frontal parietal and temporal lobes on the right. Th ere is small areas of parenchymal hemorrhage in the right frontal lobe. There is a small hemorrhage s een in the superior lateral right parietal lobe. There is thickening of the right tentorium likely re lated to mild subdural hematoma in this region. All these findings are stable. The ventricles are nor mal for age. No evidence of midline shift, mass lesion, or acute infarction. Posterior Fossa: The cerebellum and brainstem are intact. The 4th ventricle is midline. The cerebe llopontine angle is unremarkable. Extracranial: The visualized portion of the orbits is intact. Skull: The calvaria is intact. No evidence of skull fracture. CONCLUSION: Bilateral areas of hemorrhage as described above. These are unchanged. . Electronically signed by: Anthony Faith MD 07/17/2018 6:24 AM EDT
--- NOTE | 2018-07-17 06:46 | P.PNCC ---
Subjective Subjective Remarks/Hospital Course: This pleasant right-handed 77-year-old woman fell earlier today and received blunt trauma to the right side of her face and head. There was no loss of consciousness by history, no seizures or other abnormal behavior. She arrives with considerable swelling and ecchymosis surrounding the right orbit. CAT scan of the head in the emergency department reveals a small right subdural hematoma without mass-effect. There is a small right contusion about 5 mm in size. More worrisome is a 1.4 cm left extra-axial collection which appears to be tented in the fashion of an epidural bleed. The woman has chronic dementia but is pretty sharp. Her speech is clear and her memory for many things is accurate. Her care is complicated by antiplatelet therapy using Plavix, rendering her an increased risk for continued hemorrhage. 07/17: CAT scan this morning with no further increase in size of either extra- axial collection or contusion. Aside from her dementia her neurologic exam is nonfocal and without change. - Diagnosis (1) Traumatic subdural hematoma (2) Traumatic epidural hematoma (3) Intraparenchymal hematoma of brain due to trauma Objective Vital Signs / I&O: Vital Signs 07/16/18 08:41 07/16/18 10:10 07/16/18 12:30 Temperature 98.3 F 97.7 F Pulse Rate 62 56 L Respiratory Rate 18 17 26 H Blood Pressure 178/74 H 154/69 H Pulse Oximetry 97 07/16/18 14:00 07/16/18 16:00 07/16/18 18:00 Temperature 98 F Pulse Rate 50 L 56 L 56 L Respiratory Rate Blood Pressure 142/66 H Pulse Oximetry 96 07/16/18 19:00 07/16/18 20:00 07/16/18 21:00 Temperature 98.6 F Pulse Rate 50 L 58 L 52 L Respiratory Rate 29 H 22 19 Blood Pressure 121/49 L 128/62 128/61 Pulse Oximetry 96 98 96 07/16/18 22:00 07/16/18 23:00 07/17/18 00:00 Temperature 97.0 F L Pulse Rate 52 L 52 L 50 L Respiratory Rate 23 23 22 Blood Pressure 130/60 146/65 H 146/65 H Pulse Oximetry 95 95 95 07/17/18 01:00 07/17/18 02:00 07/17/18 03:00 Temperature Pulse Rate 56 L 54 L 70 Respiratory Rate 19 24 22 Blood Pressure 141/61 H 144/65 H 119/55 L Pulse Oximetry 95 94 L 93 L 07/17/18 04:00 Temperature 98.1 F Pulse Rate 64 Respiratory Rate 20 Blood Pressure 128/63 Pulse Oximetry 93 L Intake & Output 07/16/18 07/16/18 07/17/18 06:59 18:59 06:59 Intake Total 100 / 100 Output Total 1000 / 1000 Balance -900 / -900 Intake: Oral 100 / 100 Output: Urine 1000 / 1000 Other: Date of Last Bowel Movement 07/16/18 # Bowel Movements 1 Result Diagrams: 07/16/18 09:00 07/17/18 03:02 Objective Remarks: - Imaging Impressions Chest X-Ray 07/16/18 08:46 CONCLUSION: Stable appearance with no acute cardiopulmonary disease. The ribs appear intact. Face CT 07/16/18 08:48 CONCLUSION: 1. No visualized facial fracture. 2. Intracranial hemorrhage again visualized. Please see head CT report for further details. Head CT 07/16/18 08:48 CONCLUSION: 1. Small to moderate size right subdural hematoma. 2. Second extra-axial area of hemorrhage along the high left parietal lobe which likely is subdural however an epidural hemorrhage could have this appearance as well. 3. Small intraparenchymal hemorrhage in the right frontal lobe. These findings were called to Dr. Umaña in the emergency room immediately after the study was completed. . Exam Narrative: General: Alert, conversant elderly woman Head: Periorbital and lid edema right side with ecchymosis extending down to the level of the mandible. Neck: Supple, nontender, no step-off. Airway widely patent, no obstructive noises. Lungs: Clear, no wheezes or crackles, comfortable respiratory pattern. Non- labored. Heart: Normal S1, S2, no murmur or rub. No JVD. Abdomen: Nondistended, soft, no guarding, bowel sounds present. Extremities: Warm, well-perfused, no peripheral edema. Neuro: Pupillary response and extraocular movements intact. Smile, grimace, jaw clench symmetrical. Sternocleidomastoid symmetrical. Tongue protrusion midline. Shoulder shrug symmetrical. Conversant, speech clear. Moves 4 limbs to command. DTRs 3+ patella bilaterally. Toes downgoing bilateral. No clonus. Mild memory problems. Intermittent confusion overnight. Assessment and Plan - Problem List (1) Traumatic subdural hematoma Code(s): S06.5X9A - Traumatic subdural hemorrhage with loss of consciousness of unspecified duration, initial encounter Status: Acute (2) Traumatic epidural hematoma Code(s): S06.4X9A - Epidural hemorrhage with loss of consciousness of unspecified duration, initial encounter Status: Acute (3) Intraparenchymal hematoma of brain due to trauma Code(s): S06.369A - Traumatic hemorrhage of cerebrum, unspecified, with loss of consciousness of unspecified duration, initial encounter Status: Acute - Assessment and Plan Plan: Plan: Neuro -serial neuro checks -Maintain systolic blood pressure less than 160 -Repeat CAT scan today -Isotonic fluids only -Consider seizure prophylaxis with Keppra -Hold all antiplatelet therapy -No chemical DVT prophylaxis Respiratory -Bronchodilators as needed wheezing -History of COPD Cardiovascular -Avoid hypertension in view of possible epidural source for left-sided bleed -Blood pressure in the range of 110-140 probably ideal GI -N.p.o. -Meds with sip of water okay -Straight cath as needed bladder volume greater than 500 Endocrinology -Serial glucose determination, sliding scale insulin as needed ID -Culture for fevers -No infectious source suspected at this time Heme -Hemoglobin in a.m. -May need platelet transfusion if bleed size increases, spite total platelet count Prophylaxis -SCDs -Chemical DVT prophylaxis contraindicated -Continue home medication Protonix Overall impression: This woman has sustained a moderate size left epidural hematoma from a fall. Her care is considerably complicated by her present use of Plavix, the efficacy of which is well documented by her spreading facial ecchymosis. We will continue to follow her closely with serial neurologic radiographic imaging and physical exam. She experienced no deterioration overnight repeat CAT scan confirms no extension of the extra-axial collections. (1) Traumatic subdural hematoma Qualifiers: Encounter type: initial encounter Loss of consciousness presence/duration: without LOC Qualified Code(s): S06.5X0A - Traumatic subdural hemorrhage without loss of consciousness, initial encounter (2) Traumatic epidural hematoma Qualifiers: Encounter type: initial encounter Loss of consciousness presence/duration: without LOC Qualified Code(s): S06.4X0A - Epidural hemorrhage without loss of consciousness, initial encounter (3) Intraparenchymal hematoma of brain due to trauma Qualifiers: Encounter type: initial encounter Laterality: right Loss of consciousness presence/duration: without LOC Qualified Code(s): S06.340A - Traumatic hemorrhage of right cerebrum without loss of consciousness, initial encounter
[2018-07-17] MEDS: Chlorhexidine Gluconate 2% 1 Pack (2 Cloths) TOPICAL SCH (07:21)
[2018-07-17] MEDS: Levothyroxine 112 MCG Tablet PO SCH (07:21)
[2018-07-17] MEDS: Sod Chloride 0.9% Inj 1,000 ML IV.CONT SCH ×2 (07:22→08:16)
[2018-07-17] MEDS: ALPRAZolam 0.5 MG Tablet PO SCH ×2 (08:18→20:00)
[2018-07-17] MEDS: Metoprolol Tartrate 25 MG Tablet PO SCH ×2 (08:18→20:00)
[2018-07-17] MEDS: Loperamide 2 MG Capsule PO SCH ×2 (08:18→20:00)
[2018-07-17] MEDS: Escitalopram 10 MG Tablet PO SCH (08:18)
--- NOTE | 2018-07-17 17:03 | P.PNNS ---
Subjective Interval history: looking for her son, but awake, alert. reports to be doing ok. <Sarah Rodriguez - Last Filed: 07/18/18 15:38> Physical Exam Vital signs: Vital Signs 07/16/18 18:00 07/16/18 19:00 07/16/18 20:00 Temperature 98.6 F Pulse Rate 56 L 50 L 58 L Respiratory Rate 29 H 22 Blood Pressure 121/49 L 128/62 Pulse Oximetry 96 98 07/16/18 21:00 07/16/18 22:00 07/16/18 23:00 Temperature Pulse Rate 52 L 52 L 52 L Respiratory Rate 19 23 23 Blood Pressure 128/61 130/60 146/65 H Pulse Oximetry 96 95 95 07/17/18 00:00 07/17/18 01:00 07/17/18 02:00 Temperature 97.0 F L Pulse Rate 50 L 56 L 54 L Respiratory Rate 22 19 24 Blood Pressure 146/65 H 141/61 H 144/65 H Pulse Oximetry 95 95 94 L 07/17/18 03:00 07/17/18 04:00 07/17/18 05:00 Temperature 98.1 F Pulse Rate 70 64 50 L Respiratory Rate 22 20 25 H Blood Pressure 119/55 L 128/63 135/62 Pulse Oximetry 93 L 93 L 95 07/17/18 06:00 07/17/18 07:00 07/17/18 09:00 Temperature 98.0 F Pulse Rate 60 54 L 54 L Respiratory Rate 20 23 Blood Pressure 137/82 148/66 H Pulse Oximetry 93 L 95 07/17/18 12:00 07/17/18 13:00 07/17/18 16:00 Temperature 98.4 F 98.4 F 98.9 F Pulse Rate 52 L 52 L 56 L Respiratory Rate 24 24 28 H Blood Pressure 104/72 104/72 160/66 H Pulse Oximetry 93 L 93 L 94 L Intake & Output 07/16/18 07/17/18 07/17/18 18:59 06:59 18:59 Intake Total 100 / 100 345 / 345 1105 / 1105 Output Total 1000 / 1000 Balance -900 / -900 345 / 345 1105 / 1105 Weight 44.6 kg Intake: IV 105 / 105 1105 / 1105 NS Inj 1,000 ML @ 70 mls/hr IV. 1000 / 1000 CONT .[id number] JANEE Rx#:[id number] Keppra Inj 500 MG In NS Inj 100 105 / 105 105 / 105 ML @ 400 mls/hr IV.SIG Q12H JANEE Rx#:[id number] Oral 100 / 100 240 / 240 Output: Urine 1000 / 1000 Other: # Voids 5 Date of Last Bowel Movement 07/16/18 07/17/18 # Bowel Movements 1 # Incontinent Bowel Movements 1 Narrative: A&O x 3, confused, demented right facial ecchymoses and swelling right eye swollen bruised pupils equal Motor 5/5 UE/LE <MichaelSarah - Last Filed: 07/18/18 15:38> Narrative: Ms Blakely is alert, awake and oriented to self Cranial nerve examination demonstrates the pupils to be equal, round, and reactive to light. Extra-ocular movements are intact with normal convergence. Facial motornormal and symmetrical.face sensation,hearing, visual acuity, taste, and olfaction can not be assessed due to the patient's neurological condition.Sternocleidomastoid and deltoid musclesasymmetrical. Neck is soft and supple. Muscle testing revealsnormal bulk and tonewith gross normalstrength in both upper and lowerextremities Sensory examination isgrossly normal Deep tendon reflexes are1+ and symmetrical in upper andlower extremities. Bilateral plantar flexion response. Hoffmanns sign is negative. There is no clonus or other abnormal reflexes noted. Cerebellar examinationcan not be assessed due the patient's neurological condition Lungs: clear Heart: Regular rhythm and rate Skin: warm and dry <Ike Atkinson - Last Filed: 07/23/18 20:49> Assessment and Plan - Plan 77yoF on plavix who fell in [facility] with R SDH and L EDH, no midline shift , A&O x 3. stable unchanged f/u CT Brain 07/17/18 Plan: neuro stable nonoperative mgt therapy and rehab <MichaelSarah - Last Filed: 07/18/18 15:38> - Plan 77yoF on plavix who fell in [facility] with R SDH and L EDH, no midline shift , stable Neuro: neuro checks in a serial fashion. Pulmonary: aggressive pulmonary toilette, nasotracheal suction, and breathing treatments with nebulizers. Daily PT and OT Renal: Continue to monitor closely urine output, BUN and creatinine Endocrine: Continue to Monitor serial Acu checks and SSI as needed in detail ID continue to monitor for signs of infection Continue Protonix for stress ulcer prophylaxis Continue Ghassan hose and SCD's for DVT prophylaxis The exam, history, and the medical decision-making described in the above note were completed with the assistance of the mid-level provider. I reviewed and agree with the findings presented. I attest that I had a [id number] encounter with the patient on the same day, and personally performed and documented my assessment and findings in the medical record.. <Ike Atkinson - Last Filed: 07/23/18 20:49>
[2018-07-18] MEDS: Sod Chloride 0.9% Inj 1,000 ML IV.CONT SCH ×3 (00:59→14:02)
[2018-07-18] MEDS: Acetaminophen 325 MG Tablet PO PRN (01:00)
[2018-07-18] MEDS: Chlorhexidine Gluconate 2% 1 Pack (2 Cloths) TOPICAL SCH (04:11)
[2018-07-18] MEDS: Levothyroxine 112 MCG Tablet PO SCH (06:36)
[2018-07-18] MEDS: Loperamide 2 MG Capsule PO SCH ×2 (08:00→22:05)
[2018-07-18] MEDS: Escitalopram 10 MG Tablet PO SCH (08:01)
[2018-07-18] MEDS: ALPRAZolam 0.5 MG Tablet PO SCH ×2 (08:01→22:06)
[2018-07-18] MEDS: Metoprolol Tartrate 25 MG Tablet PO SCH ×2 (08:01→22:05)
--- NOTE | 2018-07-18 11:41 | P.PNCC ---
Subjective Subjective Remarks/Hospital Course: This pleasant right-handed 77-year-old woman fell earlier today and received blunt trauma to the right side of her face and head. There was no loss of consciousness by history, no seizures or other abnormal behavior. She arrives with considerable swelling and ecchymosis surrounding the right orbit. CAT scan of the head in the emergency department reveals a small right subdural hematoma without mass-effect. There is a small right contusion about 5 mm in size. More worrisome is a 1.4 cm left extra-axial collection which appears to be tented in the fashion of an epidural bleed. The woman has chronic dementia but is pretty sharp. Her speech is clear and her memory for many things is accurate. Her care is complicated by antiplatelet therapy using Plavix, rendering her an increased risk for continued hemorrhage. 07/17: CAT scan this morning with no further increase in size of either extra- axial collection or contusion. Aside from her dementia her neurologic exam is nonfocal and without change. 07/18: Remains alert and cooperative. Chronic dementia unchanged as expected. Otherwise nonfocal exam. - Diagnosis (1) Traumatic subdural hematoma (2) Traumatic epidural hematoma (3) Intraparenchymal hematoma of brain due to trauma Objective Vital Signs / I&O: Vital Signs 07/17/18 12:00 07/17/18 13:00 07/17/18 16:00 Temperature 98.4 F 98.4 F 98.9 F Pulse Rate 52 L 52 L 56 L Respiratory Rate 24 24 28 H Blood Pressure 104/72 104/72 160/66 H Pulse Oximetry 93 L 93 L 94 L 07/17/18 20:00 07/18/18 00:00 07/18/18 02:42 Temperature 98 F 99.3 F Pulse Rate 58 L 64 Respiratory Rate 24 24 24 Blood Pressure 123/57 L 141/60 H Pulse Oximetry 97 100 07/18/18 04:00 07/18/18 08:00 07/18/18 09:00 Temperature 97.6 F 97.9 F Pulse Rate 44 L 52 L 52 L Respiratory Rate 22 20 Blood Pressure 129/83 150/66 H Pulse Oximetry 94 L 93 L Intake & Output 07/17/18 07/18/18 07/18/18 18:59 06:59 18:59 Intake Total 1105 / 1105 1105 / 1105 Output Total 400 / 400 Balance 1105 / 1105 705 / 705 Weight 46.2 kg Intake: IV 1105 / 1105 1105 / 1105 NS Inj 1,000 ML @ 70 mls/hr IV. 1000 / 1000 1000 / 1000 CONT .[id number] JANEE Rx#:[id number] Keppra Inj 500 MG In NS Inj 100 105 / 105 105 / 105 ML @ 400 mls/hr IV.SIG Q12H JANEE Rx#:[id number] Output: Urine 400 / 400 Other: # Voids 8 6 Date of Last Bowel Movement 07/17/18 07/17/18 07/17/18 # Bowel Movements 2 Result Diagrams: 07/16/18 09:00 07/17/18 03:02 Objective Remarks: - Imaging Impressions Chest X-Ray 07/16/18 08:46 CONCLUSION: Stable appearance with no acute cardiopulmonary disease. The ribs appear intact. Face CT 07/16/18 08:48 CONCLUSION: 1. No visualized facial fracture. 2. Intracranial hemorrhage again visualized. Please see head CT report for further details. Head CT 07/16/18 08:48 CONCLUSION: 1. Small to moderate size right subdural hematoma. 2. Second extra-axial area of hemorrhage along the high left parietal lobe which likely is subdural however an epidural hemorrhage could have this appearance as well. 3. Small intraparenchymal hemorrhage in the right frontal lobe. These findings were called to Dr. Umaña in the emergency room immediately after the study was completed. . Exam Narrative: General: Alert, conversant elderly woman Head: Periorbital and lid edema right side with ecchymosis extending down to the level of the mandible. Neck: Supple, nontender, no step-off. Airway widely patent, no obstructive noises. Lungs: Clear, no wheezes or crackles, comfortable respiratory pattern. Non- labored. Heart: Normal S1, S2, no murmur or rub. No JVD. Abdomen: Nondistended, soft, no guarding, bowel sounds present. Extremities: Warm, well-perfused, no peripheral edema. Neuro: Pupillary response and extraocular movements intact. Smile, grimace, jaw clench symmetrical. Sternocleidomastoid symmetrical. Tongue protrusion midline. Shoulder shrug symmetrical. Conversant, speech clear. Moves 4 limbs to command. DTRs 3+ patella bilaterally. Toes downgoing bilateral. No clonus. Mild memory problems. Intermittent confusion overnight. Assessment and Plan - Problem List (1) Traumatic subdural hematoma Code(s): S06.5X9A - Traumatic subdural hemorrhage with loss of consciousness of unspecified duration, initial encounter Status: Acute (2) Traumatic epidural hematoma Code(s): S06.4X9A - Epidural hemorrhage with loss of consciousness of unspecified duration, initial encounter Status: Acute (3) Intraparenchymal hematoma of brain due to trauma Code(s): S06.369A - Traumatic hemorrhage of cerebrum, unspecified, with loss of consciousness of unspecified duration, initial encounter Status: Acute - Assessment and Plan Plan: Plan: Neuro -serial neuro checks -Maintain systolic blood pressure less than 160 -Repeat CAT scan today -Isotonic fluids only -Consider seizure prophylaxis with Keppra -Hold all antiplatelet therapy -No chemical DVT prophylaxis Respiratory -Bronchodilators as needed wheezing -History of COPD Cardiovascular -Avoid hypertension in view of possible epidural source for left-sided bleed -Blood pressure in the range of 110-140 probably ideal GI -N.p.o. -Meds with sip of water okay -Straight cath as needed bladder volume greater than 500 Endocrinology -Serial glucose determination, sliding scale insulin as needed ID -Culture for fevers -No infectious source suspected at this time Heme -Hemoglobin in a.m. -May need platelet transfusion if bleed size increases, spite total platelet count Prophylaxis -SCDs -Chemical DVT prophylaxis contraindicated -Continue home medication Protonix Overall impression: This woman has sustained a moderate size left epidural hematoma from a fall. Her care is considerably complicated by her present use of Plavix, the efficacy of which is well documented by her spreading facial ecchymosis. We will continue to follow her closely with serial neurologic radiographic imaging and physical exam. She experienced no deterioration overnight. Repeat CAT scan confirms no extension of the extra-axial collections. Disposition when okay with neurosurgical service. (1) Traumatic subdural hematoma Qualifiers: Encounter type: initial encounter Loss of consciousness presence/duration: without LOC Qualified Code(s): S06.5X0A - Traumatic subdural hemorrhage without loss of consciousness, initial encounter (2) Traumatic epidural hematoma Qualifiers: Encounter type: initial encounter Loss of consciousness presence/duration: without LOC Qualified Code(s): S06.4X0A - Epidural hemorrhage without loss of consciousness, initial encounter (3) Intraparenchymal hematoma of brain due to trauma Qualifiers: Encounter type: initial encounter Laterality: right Loss of consciousness presence/duration: without LOC Qualified Code(s): S06.340A - Traumatic hemorrhage of right cerebrum without loss of consciousness, initial encounter
--- NOTE | 2018-07-18 15:37 | P.PNNS ---
Subjective Interval history: mildly confused, but alert, follows commands. <Beatris Rodriguezaux - Last Filed: 07/18/18 15:31> Physical Exam Vital signs: Vital Signs 07/17/18 16:00 07/17/18 20:00 07/18/18 00:00 Temperature 98.9 F 98 F 99.3 F Pulse Rate 56 L 58 L 64 Respiratory Rate 28 H 24 24 Blood Pressure 160/66 H 123/57 L 141/60 H Pulse Oximetry 94 L 97 100 07/18/18 02:42 07/18/18 04:00 07/18/18 08:00 Temperature 97.6 F 97.9 F Pulse Rate 44 L 52 L Respiratory Rate 24 22 20 Blood Pressure 129/83 150/66 H Pulse Oximetry 94 L 93 L 07/18/18 09:00 07/18/18 12:00 07/18/18 14:05 Temperature 97.5 F L Pulse Rate 52 L 50 L Respiratory Rate 23 Blood Pressure 117/56 L Pulse Oximetry 100 100 Intake & Output 07/17/18 07/18/18 07/18/18 18:59 06:59 18:59 Intake Total 1105 / 1105 1105 / 1105 1000 / 1000 Output Total 400 / 400 Balance 1105 / 1105 705 / 705 1000 / 1000 Weight 46.2 kg Intake: IV 1105 / 1105 1105 / 1105 1000 / 1000 NS Inj 1,000 ML @ 70 mls/hr IV. 1000 / 1000 1000 / 1000 1000 / 1000 CONT .[id number] JANEE Rx#:[id number] Keppra Inj 500 MG In NS Inj 100 105 / 105 105 / 105 ML @ 400 mls/hr IV.SIG Q12H JANEE Rx#:[id number] Output: Urine 400 / 400 Other: # Voids 8 6 Date of Last Bowel Movement 07/17/18 07/17/18 07/17/18 # Bowel Movements 2 Narrative: Alert, confused follows commands right facial ecchymoses and swelling right eye swollen bruised pupils equal Motor 5/5 UE/LE <Beatris Rodriguezaux - Last Filed: 07/18/18 15:31> Narrative: The patient is alert, awake and oriented to self Cranial nerve examination demonstrates the pupils to be equal, round, and reactive to light. Extra-ocular movements are intact with normal convergence. Facial motornormal and symmetrical.face sensation,hearing, visual acuity, taste, and olfaction can not be assessed due to the patient's neurological condition.Sternocleidomastoid and deltoid musclesasymmetrical. Neck is soft and supple. Muscle testing revealsnormal bulk and tonewith gross normalstrength in both upper and lowerextremities Sensory examination isgrossly normal Deep tendon reflexes are1+ and symmetrical in upper andlower extremities. Bilateral plantar flexion response. Hoffmanns sign is negative. There is no clonus or other abnormal reflexes noted. Cerebellar examinationcan not be assessed due the patient's neurological condition Lungs: clear Heart: Regular rhythm and rate Skin: warm and dry <Ike Atkinson - Last Filed: 07/23/18 20:46> Assessment and Plan - Plan 77yoF on plavix who fell in [facility] with R SDH and L EDH, no midline shift , A&O x 3 stable unchanged f/u CT Brain 07/17/18 Plan: neuro exam stable, nonfocal exam cont nonoperative mgt therapy and rehab <Sarah Rodriguez - Last Filed: 07/18/18 15:31> - Plan Neuro: neuro checks in a serial fashion. Pulmonary: aggressive pulmonary toilette, nasotracheal suction, and breathing treatments with nebulizers. Daily PT and OT Renal: Continue to monitor closely urine output, BUN and creatinine Endocrine: Continue to Monitor serial Acu checks and SSI as needed in detail ID continue to monitor for signs of infection Continue Protonix for stress ulcer prophylaxis Continue Ghassan hose and SCD's for DVT prophylaxis \ The exam, history, and the medical decision-making described in the above note were completed with the assistance of the mid-level provider. I reviewed and agree with the findings presented. I attest that I had a [id number] encounter with the patient on the same day, and personally performed and documented my assessment and findings in the medical record.. <Ike Atkinson - Last Filed: 07/23/18 20:46>
[2018-07-19] MEDS: Sod Chloride 0.9% Inj 1,000 ML IV.CONT SCH (03:15)
[2018-07-19 04:25] VITALS: TEMP 98.3
[2018-07-19] MEDS: Levothyroxine 112 MCG Tablet PO SCH (05:46)
[2018-07-19] MEDS: Chlorhexidine Gluconate 2% 1 Pack (2 Cloths) TOPICAL SCH (05:46)
[2018-07-19] MEDS: Loperamide 2 MG Capsule PO SCH (09:57)
[2018-07-19] MEDS: Escitalopram 10 MG Tablet PO SCH (09:57)
[2018-07-19] MEDS: ALPRAZolam 0.5 MG Tablet PO SCH (09:58)
[2018-07-19] MEDS: Metoprolol Tartrate 25 MG Tablet PO SCH (09:58)
[2018-07-19 11:04] VITALS: O2SAT 87
--- NOTE | 2018-07-19 13:12 | P.DS ---
Date of admission: 07/16/18 11:27 Primary care physician: Luke Sanchez MD Attending physician on discharge: Avery Langston Brief History from admission: This pleasant right-handed 77-year-old woman fell earlier today and received blunt trauma to the right side of her face and head. There was no loss of consciousness by history, no seizures or other abnormal behavior. She arrives with considerable swelling and ecchymosis surrounding the right orbit. CAT scan of the head in the emergency department reveals a small right subdural hematoma without mass-effect. There is a small right contusion about 5 mm in size. More worrisome is a 1.4 cm left extra-axial collection which appears to be tented in the fashion of an epidural bleed. The woman has chronic dementia but is pretty sharp. Her speech is clear and her memory for many things is accurate. Her care is complicated by antiplatelet therapy using Plavix, rendering her an increased risk for continued hemorrhage. Patient update on day of discharge: Repeat CAT scan of the head x2 demonstrates no increase in size of either area of bleed and no mass-effect on the brain. She is alert conversant and albeit confused, interactive and easy to deal with. DS: Diagnosis - Discharge Diagnosis (1) Traumatic subdural hematoma Status: Acute (2) Traumatic epidural hematoma Status: Acute (3) Intraparenchymal hematoma of brain due to trauma Status: Acute DS: Summary Hospital Course: This pleasant right-handed 77-year-old woman fell earlier today and received blunt trauma to the right side of her face and head. There was no loss of consciousness by history, no seizures or other abnormal behavior. She arrives with considerable swelling and ecchymosis surrounding the right orbit. CAT scan of the head in the emergency department reveals a small right subdural hematoma without mass-effect. There is a small right contusion about 5 mm in size. More worrisome is a 1.4 cm left extra-axial collection which appears to be tented in the fashion of an epidural bleed. The woman has chronic dementia but is pretty sharp. Her speech is clear and her memory for many things is accurate. Her care is complicated by antiplatelet therapy using Plavix, rendering her an increased risk for continued hemorrhage. 07/17: CAT scan this morning with no further increase in size of either extra- axial collection or contusion. Aside from her dementia her neurologic exam is nonfocal and without change. 07/18: Remains alert and cooperative. Chronic dementia unchanged as expected. Otherwise nonfocal exam. 07/19: Remains alert active and cooperative. Facial ecchymosis left side is resolving. Vision and extraocular movements intact. Some chronic dementia. - Diagnosis (1) Traumatic subdural hematoma (2) Traumatic epidural hematoma (3) Intraparenchymal hematoma of brain due to trauma - Time Spent with Patient Total time spent providing and/or coordinating discharge services: Greater than 30 minutes Exam Vital signs: Vital Signs 07/18/18 14:00 07/18/18 14:05 07/18/18 15:00 Temperature Pulse Rate 48 L 58 L Respiratory Rate 22 22 Blood Pressure 132/63 147/67 H Pulse Oximetry 100 100 93 L 07/18/18 16:00 07/18/18 17:00 07/18/18 18:00 Temperature 97.6 F Pulse Rate 56 L 41 L 55 L Respiratory Rate 20 20 24 Blood Pressure 128/56 L 147/68 H Pulse Oximetry 90 L 100 87 L 07/18/18 18:13 07/18/18 19:00 07/18/18 20:00 Temperature 98.0 F Pulse Rate 51 L 55 L 51 L Respiratory Rate 28 H 23 24 Blood Pressure 141/65 H 143/63 H 134/56 L Pulse Oximetry 97 100 07/18/18 21:00 07/18/18 22:00 07/18/18 23:00 Temperature Pulse Rate 48 L 60 59 L Respiratory Rate 25 H 25 H 35 H Blood Pressure 136/67 131/88 132/59 L Pulse Oximetry 100 86 L 88 L 07/19/18 00:00 07/19/18 01:00 07/19/18 02:00 Temperature 98.0 F Pulse Rate 58 L 40 L 41 L Respiratory Rate 29 H 20 19 Blood Pressure 144/60 H 127/62 Pulse Oximetry 82 L 100 100 07/19/18 02:10 07/19/18 03:00 07/19/18 04:00 Temperature 98.3 F Pulse Rate 42 L 48 L 43 L Respiratory Rate 20 22 20 Blood Pressure 142/67 H 153/67 H 131/58 L Pulse Oximetry 100 94 L 100 07/19/18 05:00 07/19/18 06:00 07/19/18 07:00 Temperature Pulse Rate 44 L 59 L 55 L Respiratory Rate 22 36 H 28 H Blood Pressure 143/65 H 176/64 H 147/58 H Pulse Oximetry 76 L 85 L 07/19/18 08:00 07/19/18 09:00 07/19/18 10:02 Temperature Pulse Rate 41 L 50 L 52 L Respiratory Rate 20 22 26 H Blood Pressure 155/63 H 160/95 H Pulse Oximetry 85 L 87 L 07/19/18 11:00 Temperature Pulse Rate 55 L Respiratory Rate 22 Blood Pressure Pulse Oximetry Intake & Output 07/18/18 07/19/18 07/19/18 18:59 06:59 18:59 Intake Total 1465 / 1465 1225 / 1225 Output Total 650 / 650 300 / 300 Balance 815 / 815 925 / 925 Weight 46.8 kg Intake: IV 1105 / 1105 1105 / 1105 NS Inj 1,000 ML @ 70 mls/hr IV. 1000 / 1000 1000 / 1000 CONT .[id number] JANEE Rx#:[id number] Keppra Inj 500 MG In NS Inj 100 105 / 105 105 / 105 ML @ 400 mls/hr IV.SIG Q12H JANEE Rx#:[id number] Oral 360 / 360 120 / 120 Output: Urine 650 / 650 300 / 300 Other: # Voids 3 # Incontinent Voids 1 Date of Last Bowel Movement 07/17/18 07/17/18 07/17/18 Narrative: General: [place], conversant elderly woman Head: Periorbital and lid edema right side with ecchymosis extending down to the level of the mandible. Neck: Supple, nontender, no step-off. Airway widely patent, no obstructive noises. Lungs: Clear, no wheezes or crackles, rest comfortable respiratory pattern. Heart: Normal S1, S2, no murmur or rub. Neck veins are flat Abdomen: Nondistended, soft, no guarding, bowel sounds present. Extremities: Warm, well-perfused, no peripheral edema. Neuro: Pupillary response and extraocular movements intact. Smile, grimace, jaw clench symmetrical. Sternocleidomastoid symmetrical. Tongue protrusion midline. Shoulder shrug symmetrical. Conversant, speech clear. Moves 4 limbs to command. DTRs 3+ patella bilaterally. Toes downgoing bilateral. No clonus. Mild memory problems. Results Procedures completed during hospitalization: None - Impressions ITS Impressions Chest X-Ray 07/16/18 08:46 CONCLUSION: Stable appearance with no acute cardiopulmonary disease. The ribs appear intact. Face CT 07/16/18 08:48 CONCLUSION: 1. No visualized facial fracture. 2. Intracranial hemorrhage again visualized. Please see head CT report for further details. Head CT 07/17/18 05:00 CONCLUSION: Bilateral areas of hemorrhage as described above. These are unchanged. . Discharge Plan - Discharge Disposition Patient Disposition: 03 Discharge to SNF - Discharge Condition Condition: Good - Discharge Order Discharge Orders: Discharge Order (Routine); Ordered 07/19/18 Ordered By: Avery Langston Neurosurgery Clear for Discharge (Routine); Ordered 07/19/18 Ordered By: Sarah Rodriguez - Discharge Details Discharge Comment: No aspirin, plavis, or anticoagulants for 4 weeks. - Physicians Team Primary Care Provider: Luke Sanchez Attending Provider: Avery Langston Other Providers: Jorge Block MD ; [facility]
[2018-07-19 14:47] VITALS: BP 164/73; PULSE 54; RESP 25
== END 2018-07-19 16:20 ==
LOC: NEPC 08:34 → NEDA 11:27 → N03 12:24
PROVIDERS: ADMIT Surgery Surgical Critical Care; ATTEND Surgery Surgical Critical Care